=== PATIENT | female | born 1960 | race Asian ===

== ENCOUNTER 2018-06-19 20:01 | Emergency (ER) | payer OTHER, SELFPAY ==
[2018-06-19 20:07] VITALS: BP 140/86; PULSE 86; RESP 21; TEMP 36.6; O2SAT 100; BMI 23.6
--- NOTE | 2018-06-19 20:08 | ED.ABDPAIN ---
HPI - Abdominal Pain <Bing Castillo PA-C - Last Filed: 06/19/18 21:58> General Chief Complaint: Abdominal Pain Stated Complaint: STOMACH PAIN THROWING UP Time Seen by Provider: 06/19/18 20:08 Source: patient Mode of arrival: ambulatory Limitations: no limitations History of Present Illness HPI narrative: This 57 year old female comes in due to onset of abdominal pain with profuse vomiting about 4 hr ago. She states abdominal pain is little bit all over but most noticeable in the right upper quadrant and epigastric area currently. She states she has vomited about every 10 min, food at 1st, then watery material, last in the car on the way here. She denies any diarrhea or bowel habit change. She denies any urinary symptoms. She has not had fever, chills, or sweats. She denies any chest pain, dyspnea, pain or swelling in her extremities or other new symptoms on systems review. She has not had any dietary change, no recent travel or new exposures. Related Data Allergies Allergy/AdvReac Type Severity Reaction Status Date / Time SULFA Allergy Unknown Uncoded 12/16/17 12:28 Review of Systems <Bing Castillo PA-C - Last Filed: 06/19/18 21:58> Review of Systems All systems reviewed & are unremarkable except as noted in HPI and below Exam <Bing Castillo PA-C - Last Filed: 06/19/18 21:58> Narrative Exam Narrative: GENERAL APPEARANCE: Patient sitting comfortably, in no distress. HEENT: PERRL, EOMI, no scleral icterus, conjunctivae pink NECK: Supple LUNGS: Clear to auscultation bilaterally. HEART: Rate and rhythm regular, normal S1 and S2, no S3 or S4. ABDOMEN: Soft, nondistended, bowel sounds present x 4 quadrants, no masses palpable, no hepatosplenomegaly. Tender over the right upper quadrant with +Schwarz's sign which is difficult to reproduce. Tender over the epigastrium. More mild tenderness over the left upper quadrant and remainder of the abdomen. No suprapubic tenderness. No CVAT EXTREMITIES: No edema, no cyanosis DERMATOLOGIC: No jaundice or exanthem NEUROLOGIC: Alert and oriented with normal speech and coordination Initial Vital Signs Initial Vital Signs: Vital Signs Temperature 97.9 F 06/19/18 20:07 Pulse Rate 86 06/19/18 20:07 Respiratory Rate 21 06/19/18 20:07 Blood Pressure 140/86 06/19/18 20:07 Pulse Oximetry 100 06/19/18 20:07 <Lyndsay Nicholas DO - Last Filed: 06/20/18 00:45> Initial Vital Signs Initial Vital Signs: Vital Signs Temperature 97.9 F 06/19/18 20:07 Pulse Rate 86 06/19/18 20:07 Respiratory Rate 21 06/19/18 20:07 Blood Pressure 140/86 06/19/18 20:07 Pulse Oximetry 100 06/19/18 20:07 Course <Bing Castillo PA-C - Last Filed: 06/19/18 21:58> Additional Information: The patient has not had recurrent vomiting while in the department and reports feeling significantly improved after medications and fluids. No acute findings on ultrasound. She agreed to return if any acutely worsening symptoms again. Orders Ordered: ED Orders 06/19/18 20:16 Complete Blood Count AUTO DIFF Stat Comprehensive Metabolic Panel Stat Lipase Stat 06/19/18 20:18 US abdomen complete Stat Discontinued Medications Sodium Chloride (Normal Saline 0.9%) 1,000 mls @ 1,000 mls/hr IV BOLUS ONE Stop: 06/19/18 21:17 Last Infusion: 06/19/18 21:18 Dose: 0 mls/hr Admin: 06/19/18 20:24 Dose: 1,000 mls/hr Ketorolac Tromethamine (Toradol) 30 mg IV NOW ONE Stop: 06/19/18 21:27 Last Admin: 06/19/18 21:31 Dose: 30 mg Ondansetron HCl (Zofran) 4 mg IV NOW ONE Stop: 06/19/18 20:19 Last Admin: 06/19/18 20:24 Dose: 4 mg Ondansetron HCl (Zofran Odt Prepack) 1 bottle MISC SEEINSTR ONE Stop: 06/19/18 21:50 Last Admin: 06/19/18 21:52 Dose: 1 bottle Vital Signs - 8 hr 06/19/18 20:07 06/19/18 21:02 06/19/18 21:35 Temperature 97.9 F 97.5 F L Pulse Rate 86 74 67 Respiratory Rate 21 17 18 Blood Pressure 140/86 Blood Pressure [Right Arm] 109/67 115/74 Pulse Oximetry 100 99 97 06/19/18 21:48 Temperature Pulse Rate 72 Respiratory Rate 17 Blood Pressure Blood Pressure [Right Arm] 110/72 Pulse Oximetry 99 <Lyndsay Nicholas DO - Last Filed: 06/20/18 00:45> Orders Ordered: ED Orders 06/19/18 20:16 Complete Blood Count AUTO DIFF Stat Comprehensive Metabolic Panel Stat Lipase Stat 06/19/18 20:18 US abdomen complete Stat Discontinued Medications Sodium Chloride (Normal Saline 0.9%) 1,000 mls @ 1,000 mls/hr IV BOLUS ONE Stop: 06/19/18 21:17 Last Infusion: 06/19/18 21:18 Dose: 0 mls/hr Admin: 06/19/18 20:24 Dose: 1,000 mls/hr Ketorolac Tromethamine (Toradol) 30 mg IV NOW ONE Stop: 06/19/18 21:27 Last Admin: 06/19/18 21:31 Dose: 30 mg Ondansetron HCl (Zofran) 4 mg IV NOW ONE Stop: 06/19/18 20:19 Last Admin: 06/19/18 20:24 Dose: 4 mg Ondansetron HCl (Zofran Odt Prepack) 1 bottle MISC SEEINSTR ONE Stop: 06/19/18 21:50 Last Admin: 06/19/18 21:52 Dose: 1 bottle Vital Signs - 8 hr 06/19/18 20:07 06/19/18 21:02 06/19/18 21:35 Temperature 97.9 F 97.5 F L Pulse Rate 86 74 67 Respiratory Rate 21 17 18 Blood Pressure 140/86 Blood Pressure [Right Arm] 109/67 115/74 Pulse Oximetry 100 99 97 06/19/18 21:48 Temperature Pulse Rate 72 Respiratory Rate 17 Blood Pressure Blood Pressure [Right Arm] 110/72 Pulse Oximetry 99 MDM - Abdominal Pain <Bing Castillo PA-C - Last Filed: 06/19/18 21:58> Lab Data Attestation: I reviewed the patient's lab results. Result diagrams: 06/19/18 20:16 06/19/18 20:16 Lab Results 06/19/18 06/19/18 Range/Units 20:16 20:16 WBC 17.6 H (4.5-11.0) X10^3/uL RBC 4.86 (4.0-5.2) X10^6/uL Hgb 14.7 (12.0-16.0) g/dL Hct 43.5 (36-46) % MCV 89.5 (80-100) fL MCH 30.2 (26-34) PG MCHC 33.7 (30-36) % RDW 12.3 (11.6-14.8) % Plt Count 338 (150-400) X10^3/uL Neut % (Auto) 90.0 H (50-75) % Lymph % (Auto) 4.5 L (25-40) % Evans % (Auto) 5.0 (3-14) % Eos % (Auto) 0.3 L (2-4) % Baso % (Auto) 0.2 (0-2) % Neut # (Auto) 95883 H (5370-6849) /uL Sodium 144 (137-145) mmol/L Potassium 3.7 (3.4-5.1) mmol/L Chloride 101 (98-107) mmol/L Carbon Dioxide 30 (22-32) mmol/L BUN 14 (7-17) mg/dL Creatinine 0.70 (0.52-1.04) mg/dL Estimated GFR > 60.0 (>60) mL/min BUN/Creatinine Ratio 20.0 (6-22) Glucose 148 H (70-100) mg/dL Calcium 9.8 (8.4-10.2) mg/dL Total Bilirubin 0.8 (0.2-1.3) mg/dL AST 43 H (14-36) IU/L ALT 52 (9-52) IU/L Alkaline Phosphatase 75 (38-126) U/L Total Protein 8.2 (6.3-8.2) g/dL Albumin 5.0 (3.5-5.0) g/dL Globulin 3.2 (1.7-4.1) g/dL Albumin/Globulin Ratio 1.6 (1.0-2.8) Lipase 123 (23-300) U/L Imaging Data US - abdomen: Radiologist's impression: [address] [address] Ultrasound Report Signed Patient: America Bass [facility]#: [id number] : 2Acct:[id number] Age/Sex: 57 / FDate of Service: 06/19/18 Loc: ED Accession Number: [id number] Procedure: US abdomen complete Ordering Provider: Bing Castillo P.A-C PROCEDURE: US ABDOMEN COMPLETE INDICATIONS: RIGHT UPPER QUADRANT PAIN TECHNIQUE: Real-time scanning was performed of the abdominal and retroperitoneal organs, with image documentation. COMPARISON: None. FINDINGS: Liver: Liver is normal in size and homogeneous in echotexture. Gallbladder: Gallbladder is suboptimally visualized but appears grossly normal. No gallstones. No gallbladder wall thickening. No pericholecystic fluid. No sonographic Schwarz sign. Biliary ducts: Intrahepatic bile ducts are non-dilated. Extrahepatic bile duct caliber measures 6.4 mm. Normal is 6-7 mm or less in diameter, or 10 mm or less post-cholecystectomy. Pancreas: Visualized portions of the pancreas are sonographically normal. Spleen: Spleen is normal in size and homogeneous in echotexture. Kidneys: Kidneys are normal in size and echotexture. Right kidney measures 9.4 cm long; left kidney measures 9.9 cm long. No hydronephrosis or nephrolithiasis. No solid masses. Aorta: Visualized aorta is normal in caliber at less than 3 cm. Iliacs: Proximal common iliac arteries are normal in caliber at less than 2.5 cm. IVC: Intrahepatic inferior vena cava is patent. Miscellaneous: No free abdominal fluid. IMPRESSION: Suboptimal visualization of gallbladder. Gallbladder appears grossly normal. Dictated by: Lupe Cervantes MD, PhD on 06/19/2018 at 21:17 Approved by: Lupe Cervantes MD, PhD on 06/19/2018 at 21:18 <Lyndsay Nicholas, DO - Last Filed: 06/20/18 00:45> Lab Data Lab Results 06/19/18 06/19/18 Range/Units 20:16 20:16 WBC 17.6 H (4.5-11.0) X10^3/uL RBC 4.86 (4.0-5.2) X10^6/uL Hgb 14.7 (12.0-16.0) g/dL Hct 43.5 (36-46) % MCV 89.5 (80-100) fL MCH 30.2 (26-34) PG MCHC 33.7 (30-36) % RDW 12.3 (11.6-14.8) % Plt Count 338 (150-400) X10^3/uL Neut % (Auto) 90.0 H (50-75) % Lymph % (Auto) 4.5 L (25-40) % Evans % (Auto) 5.0 (3-14) % Eos % (Auto) 0.3 L (2-4) % Baso % (Auto) 0.2 (0-2) % Neut # (Auto) 34895 H (6499-2370) /uL Sodium 144 (137-145) mmol/L Potassium 3.7 (3.4-5.1) mmol/L Chloride 101 (98-107) mmol/L Carbon Dioxide 30 (22-32) mmol/L BUN 14 (7-17) mg/dL Creatinine 0.70 (0.52-1.04) mg/dL Estimated GFR > 60.0 (>60) mL/min BUN/Creatinine Ratio 20.0 (6-22) Glucose 148 H (70-100) mg/dL Calcium 9.8 (8.4-10.2) mg/dL Total Bilirubin 0.8 (0.2-1.3) mg/dL AST 43 H (14-36) IU/L ALT 52 (9-52) IU/L Alkaline Phosphatase 75 (38-126) U/L Total Protein 8.2 (6.3-8.2) g/dL Albumin 5.0 (3.5-5.0) g/dL Globulin 3.2 (1.7-4.1) g/dL Albumin/Globulin Ratio 1.6 (1.0-2.8) Lipase 123 (23-300) U/L Discharge Plan Departure Patient Disposition: Home Clinical Impression: Gastroenteritis, Abdominal pain Discharge Date/Time: 06/19/18 22:00 Interventions: ED Discharge Assessment Last Done: 06/19/18 21:59 Activity Restrictions/Additional Instructions: Please return as we talked about if you have any acutely worsening symptoms again such as more pain, recurrent vomiting, or new symptoms such as fever. Please sip clear fluids, and if you are feeling better tomorrow you can try small amounts of bland foods such as bananas, applesauce, a little bit of white rice, or white toast. Please continue to eat bland food in small amounts until you are feeling better, then you can gradually advance to your normal diet. Please be sure to follow up with her PCP if you are not continuing to feel better over the next couple of days Referrals: [facility] [Provider Group] <Lyndsay Nicholas, DO - Last Filed: 06/20/18 00:45> Cosign ED Attending Hipolito Attestation: I was immediately available in the department for consultation. Documentation has been reviewed. I agree with assessment and plan.
--- NOTE | 2018-06-19 20:18 | DI.US.S_ITS ---
PROCEDURE: US ABDOMEN COMPLETE INDICATIONS: RIGHT UPPER QUADRANT PAIN TECHNIQUE: Real-time scanning was performed of the abdominal and retroperitoneal organs, with image documentation. COMPARISON: None. FINDINGS: Liver: Liver is normal in size and homogeneous in echotexture. Gallbladder: Gallbladder is suboptimally visualized but appears grossly normal. No gallstones. No gallbladder wall thickening. No pericholecystic fluid. No sonographic Schwarz sign. Biliary ducts: Intrahepatic bile ducts are non-dilated. Extrahepatic bile duct caliber measures 6.4 mm. Normal is 6-7 mm or less in diameter, or 10 mm or less post-cholecystectomy. Pancreas: Visualized portions of the pancreas are sonographically normal. Spleen: Spleen is normal in size and homogeneous in echotexture. Kidneys: Kidneys are normal in size and echotexture. Right kidney measures 9.4 cm long; left kidney measures 9.9 cm long. No hydronephrosis or nephrolithiasis. No solid masses. Aorta: Visualized aorta is normal in caliber at less than 3 cm. Iliacs: Proximal common iliac arteries are normal in caliber at less than 2.5 cm. IVC: Intrahepatic inferior vena cava is patent. Miscellaneous: No free abdominal fluid. IMPRESSION: Suboptimal visualization of gallbladder. Gallbladder appears grossly normal. Dictated by: Lupe Cervantes MD, PhD on 06/19/2018 at 21:17 Approved by: Lupe Cervantes MD, PhD on 06/19/2018 at 21:18
--- NOTE | 2018-06-19 20:23 | ED_ITS ---
HPI - Abdominal Pain <Bing Castillo PA-C - Last Filed: 06/19/18 21:58> General Chief Complaint: Abdominal Pain Stated Complaint: STOMACH PAIN THROWING UP Time Seen by Provider: 06/19/18 20:08 Source: patient Mode of arrival: ambulatory Limitations: no limitations History of Present Illness HPI narrative: This 57 year old female comes in due to onset of abdominal pain with profuse vomiting about 4 hr ago. She states abdominal pain is little bit all over but most noticeable in the right upper quadrant and epigastric area currently. She states she has vomited about every 10 min, food at 1st, then watery material, last in the car on the way here. She denies any diarrhea or bowel habit change. She denies any urinary symptoms. She has not had fever, chills, or sweats. She denies any chest pain, dyspnea, pain or swelling in her extremities or other new symptoms on systems review. She has not had any dietary change, no recent travel or new exposures. Related Data Allergies Allergy/AdvReac Type Severity Reaction Status Date / Time SULFA Allergy Unknown Uncoded 12/16/17 12:28 Review of Systems <Bing Castillo PA-C - Last Filed: 06/19/18 21:58> Review of Systems All systems reviewed & are unremarkable except as noted in HPI and below Exam <Bing Castillo PA-C - Last Filed: 06/19/18 21:58> Narrative Exam Narrative: GENERAL APPEARANCE: Patient sitting comfortably, in no distress. HEENT: PERRL, EOMI, no scleral icterus, conjunctivae pink NECK: Supple LUNGS: Clear to auscultation bilaterally. HEART: Rate and rhythm regular, normal S1 and S2, no S3 or S4. ABDOMEN: Soft, nondistended, bowel sounds present x 4 quadrants, no masses palpable, no hepatosplenomegaly. Tender over the right upper quadrant with + Schwarz's sign which is difficult to reproduce. Tender over the epigastrium. More mild tenderness over the left upper quadrant and remainder of the abdomen. No suprapubic tenderness. No CVAT EXTREMITIES: No edema, no cyanosis DERMATOLOGIC: No jaundice or exanthem NEUROLOGIC: Alert and oriented with normal speech and coordination Initial Vital Signs Initial Vital Signs: Vital Signs Temperature 97.9 F 06/19/18 20:07 Pulse Rate 86 06/19/18 20:07 Respiratory Rate 21 06/19/18 20:07 Blood Pressure 140/86 06/19/18 20:07 Pulse Oximetry 100 06/19/18 20:07 <Lyndsay Nicholas DO - Last Filed: 06/20/18 00:45> Initial Vital Signs Initial Vital Signs: Vital Signs Temperature 97.9 F 06/19/18 20:07 Pulse Rate 86 06/19/18 20:07 Respiratory Rate 21 06/19/18 20:07 Blood Pressure 140/86 06/19/18 20:07 Pulse Oximetry 100 06/19/18 20:07 Course <Bing Castillo PA-C - Last Filed: 06/19/18 21:58> Additional Information: The patient has not had recurrent vomiting while in the department and reports feeling significantly improved after medications and fluids. No acute findings on ultrasound. She agreed to return if any acutely worsening symptoms again. Orders Ordered: ED Orders 06/19/18 20:16 Complete Blood Count AUTO DIFF Stat Comprehensive Metabolic Panel Stat Lipase Stat 06/19/18 20:18 US abdomen complete Stat Discontinued Medications Sodium Chloride (Normal Saline 0.9%) 1,000 mls @ 1,000 mls/hr IV BOLUS ONE Stop: 06/19/18 21:17 Last Infusion: 06/19/18 21:18 Dose: 0 mls/hr Admin: 06/19/18 20:24 Dose: 1,000 mls/hr Ketorolac Tromethamine (Toradol) 30 mg IV NOW ONE Stop: 06/19/18 21:27 Last Admin: 06/19/18 21:31 Dose: 30 mg Ondansetron HCl (Zofran) 4 mg IV NOW ONE Stop: 06/19/18 20:19 Last Admin: 06/19/18 20:24 Dose: 4 mg Ondansetron HCl (Zofran Odt Prepack) 1 bottle MISC SEEINSTR ONE Stop: 06/19/18 21:50 Last Admin: 06/19/18 21:52 Dose: 1 bottle Vital Signs - 8 hr 06/19/18 20:07 06/19/18 21:02 06/19/18 21:35 Temperature 97.9 F 97.5 F L Pulse Rate 86 74 67 Respiratory Rate 21 17 18 Blood Pressure 140/86 Blood Pressure [Right Arm] 109/67 115/74 Pulse Oximetry 100 99 97 06/19/18 21:48 Temperature Pulse Rate 72 Respiratory Rate 17 Blood Pressure Blood Pressure [Right Arm] 110/72 Pulse Oximetry 99 <Lyndsay Nicholas DO - Last Filed: 06/20/18 00:45> Orders Ordered: ED Orders 06/19/18 20:16 Complete Blood Count AUTO DIFF Stat Comprehensive Metabolic Panel Stat Lipase Stat 06/19/18 20:18 US abdomen complete Stat Discontinued Medications Sodium Chloride (Normal Saline 0.9%) 1,000 mls @ 1,000 mls/hr IV BOLUS ONE Stop: 06/19/18 21:17 Last Infusion: 06/19/18 21:18 Dose: 0 mls/hr Admin: 06/19/18 20:24 Dose: 1,000 mls/hr Ketorolac Tromethamine (Toradol) 30 mg IV NOW ONE Stop: 06/19/18 21:27 Last Admin: 06/19/18 21:31 Dose: 30 mg Ondansetron HCl (Zofran) 4 mg IV NOW ONE Stop: 06/19/18 20:19 Last Admin: 06/19/18 20:24 Dose: 4 mg Ondansetron HCl (Zofran Odt Prepack) 1 bottle MISC SEEINSTR ONE Stop: 06/19/18 21:50 Last Admin: 06/19/18 21:52 Dose: 1 bottle Vital Signs - 8 hr 06/19/18 20:07 06/19/18 21:02 06/19/18 21:35 Temperature 97.9 F 97.5 F L Pulse Rate 86 74 67 Respiratory Rate 21 17 18 Blood Pressure 140/86 Blood Pressure [Right Arm] 109/67 115/74 Pulse Oximetry 100 99 97 06/19/18 21:48 Temperature Pulse Rate 72 Respiratory Rate 17 Blood Pressure Blood Pressure [Right Arm] 110/72 Pulse Oximetry 99 MDM - Abdominal Pain <Bing Castillo PA-C - Last Filed: 06/19/18 21:58> Lab Data Attestation: I reviewed the patient's lab results. Result diagrams: 06/19/18 20:16 06/19/18 20:16 Lab Results 06/19/18 06/19/18 Range/Units 20:16 20:16 WBC 17.6 H (4.5-11.0) X10^3/uL RBC 4.86 (4.0-5.2) X10^6/uL Hgb 14.7 (12.0-16.0) g/dL Hct 43.5 (36-46) % MCV 89.5 (80-100) fL MCH 30.2 (26-34) PG MCHC 33.7 (30-36) % RDW 12.3 (11.6-14.8) % Plt Count 338 (150-400) X10^3/uL Neut % (Auto) 90.0 H (50-75) % Lymph % (Auto) 4.5 L (25-40) % [place] % (Auto) 5.0 (3-14) % Eos % (Auto) 0.3 L (2-4) % Baso % (Auto) 0.2 (0-2) % Neut # (Auto) 22601 H (3035-7579) /uL Sodium 144 (137-145) mmol/L Potassium 3.7 (3.4-5.1) mmol/L Chloride 101 (98-107) mmol/L Carbon Dioxide 30 (22-32) mmol/L BUN 14 (7-17) mg/dL Creatinine 0.70 (0.52-1.04) mg/dL Estimated GFR > 60.0 (>60) mL/min BUN/Creatinine Ratio 20.0 (6-22) Glucose 148 H (70-100) mg/dL Calcium 9.8 (8.4-10.2) mg/dL Total Bilirubin 0.8 (0.2-1.3) mg/dL AST 43 H (14-36) IU/L ALT 52 (9-52) IU/L Alkaline Phosphatase 75 (38-126) U/L Total Protein 8.2 (6.3-8.2) g/dL Albumin 5.0 (3.5-5.0) g/dL Globulin 3.2 (1.7-4.1) g/dL Albumin/Globulin Ratio 1.6 (1.0-2.8) Lipase 123 (23-300) U/L Imaging Data US - abdomen: Radiologist's impression: [address] [address] Ultrasound Report Signed Patient: America Bass [facility]#: [id number] : 2Acct:[id number] Age/Sex: 57 / FDate of Service: 06/19/18 Loc: ED Accession Number: [id number] Procedure: US abdomen complete Ordering Provider: Bing Castillo P.A-C PROCEDURE: US ABDOMEN COMPLETE INDICATIONS: RIGHT UPPER QUADRANT PAIN TECHNIQUE: Real-time scanning was performed of the abdominal and retroperitoneal organs, with image documentation. COMPARISON: None. FINDINGS: Liver: Liver is normal in size and homogeneous in echotexture. Gallbladder: Gallbladder is suboptimally visualized but appears grossly normal. No gallstones. No gallbladder wall thickening. No pericholecystic fluid. No sonographic Schwarz sign. Biliary ducts: Intrahepatic bile ducts are non-dilated. Extrahepatic bile duct caliber measures 6.4 mm. Normal is 6-7 mm or less in diameter, or 10 mm or less post-cholecystectomy. Pancreas: Visualized portions of the pancreas are sonographically normal. Spleen: Spleen is normal in size and homogeneous in echotexture. Kidneys: Kidneys are normal in size and echotexture. Right kidney measures 9.4 cm long; left kidney measures 9.9 cm long. No hydronephrosis or nephrolithiasis. No solid masses. Aorta: Visualized aorta is normal in caliber at less than 3 cm. Iliacs: Proximal common iliac arteries are normal in caliber at less than 2.5 cm. IVC: Intrahepatic inferior vena cava is patent. Miscellaneous: No free abdominal fluid. IMPRESSION: Suboptimal visualization of gallbladder. Gallbladder appears grossly normal. Dictated by: Lupe Cervantes MD, PhD on 06/19/2018 at 21:17 Approved by: Lupe Cervantes MD, PhD on 06/19/2018 at 21:18 <Lyndsay Nicholas, DO - Last Filed: 06/20/18 00:45> Lab Data Lab Results 06/19/18 06/19/18 Range/Units 20:16 20:16 WBC 17.6 H (4.5-11.0) X10^3/uL RBC 4.86 (4.0-5.2) X10^6/uL Hgb 14.7 (12.0-16.0) g/dL Hct 43.5 (36-46) % MCV 89.5 (80-100) fL MCH 30.2 (26-34) PG MCHC 33.7 (30-36) % RDW 12.3 (11.6-14.8) % Plt Count 338 (150-400) X10^3/uL Neut % (Auto) 90.0 H (50-75) % Lymph % (Auto) 4.5 L (25-40) % [place] % (Auto) 5.0 (3-14) % Eos % (Auto) 0.3 L (2-4) % Baso % (Auto) 0.2 (0-2) % Neut # (Auto) 97538 H (7124-5477) /uL Sodium 144 (137-145) mmol/L Potassium 3.7 (3.4-5.1) mmol/L Chloride 101 (98-107) mmol/L Carbon Dioxide 30 (22-32) mmol/L BUN 14 (7-17) mg/dL Creatinine 0.70 (0.52-1.04) mg/dL Estimated GFR > 60.0 (>60) mL/min BUN/Creatinine Ratio 20.0 (6-22) Glucose 148 H (70-100) mg/dL Calcium 9.8 (8.4-10.2) mg/dL Total Bilirubin 0.8 (0.2-1.3) mg/dL AST 43 H (14-36) IU/L ALT 52 (9-52) IU/L Alkaline Phosphatase 75 (38-126) U/L Total Protein 8.2 (6.3-8.2) g/dL Albumin 5.0 (3.5-5.0) g/dL Globulin 3.2 (1.7-4.1) g/dL Albumin/Globulin Ratio 1.6 (1.0-2.8) Lipase 123 (23-300) U/L Discharge Plan Departure Patient Disposition: Home Clinical Impression: Gastroenteritis, Abdominal pain Discharge Date/Time: 06/19/18 22:00 Interventions: ED Discharge Assessment Last Done: 06/19/18 21:59 Activity Restrictions/Additional Instructions: Please return as we talked about if you have any acutely worsening symptoms again such as more pain, recurrent vomiting, or new symptoms such as fever. Please sip clear fluids, and if you are feeling better tomorrow you can try small amounts of bland foods such as bananas, applesauce, a little bit of white rice, or white toast. Please continue to eat bland food in small amounts until you are feeling better, then you can gradually advance to your normal diet. Please be sure to follow up with her PCP if you are not continuing to feel better over the next couple of days Referrals: [facility] [Provider Group] <Lyndsay Nicholas, DO - Last Filed: 06/20/18 00:45> Cosign ED Attending Hipolito Attestation: I was immediately available in the department for consultation. Documentation has been reviewed. I agree with assessment and plan.
[2018-06-19] MEDS: SODIUM CHLORIDE 0.9% 1,000 ML 1000 ML IV (20:24)
[2018-06-19] MEDS: ONDANSETRON 4 MG/2 ML INJ IV (20:24)
[2018-06-19 20:28] LABS: Add Manual Diff / Slide Review NO; Basophils Percent Auto 0.2 % (0-2); Eosinophils Percent Auto 0.3 % (2-4); Hematocrit 43.5 % (36-46); Hemoglobin 14.7 g/dL (12.0-16.0); Lymphocytes Percent Auto 4.5 % (25-40); Mean Corpuscular HGB Conc 33.7 % (30-36); Mean Corpuscular Hemoglobin 30.2 PG (26-34); Mean Corpuscular Volume 89.5 fL (80-100); Neutrophils Absolute Auto 15800 /uL (3000-5900); Platelet Count 338 X10^3/uL (150-400); Red Blood Cell Count 4.86 X10^6/uL (4.0-5.2); Red Cell Distribution Width 12.3 % (11.6-14.8); White Blood Cell Count 17.6 X10^3/uL (4.5-11.0)
[2018-06-19 20:34] LABS: Alanine Aminotransferase 52 IU/L (9-52); Albumin Globulin Ratio 1.6 (1.0-2.8); Alkaline Phosphatase 75 U/L (38-126); Aspartate Aminotransferase 43 IU/L (14-36); Bilirubin Total 0.8 mg/dL (0.2-1.3); Blood Urea Nitrogen 14 mg/dL (7-17); Calcium 9.8 mg/dL (8.4-10.2); Carbon Dioxide 30 mmol/L (22-32); Chloride 101 mmol/L (98-107); Estimated Glomerular Filt Rate > 60.0 mL/min (>60); Globulin 3.2 g/dL (1.7-4.1); Glucose 148 mg/dL (70-100); HEMOLYSIS < 15 (0-50); Lipase 123 U/L (23-300); Potassium 3.7 mmol/L (3.4-5.1); Sodium 144 mmol/L (137-145); Total Protein 8.2 g/dL (6.3-8.2)
[2018-06-19 21:02] VITALS: BP 109/67; PULSE 74; RESP 17; O2SAT 99
[2018-06-19] MEDS: KETOROLAC 60 MG/2 ML VIAL 30 MG IV (21:31)
[2018-06-19 21:35] VITALS: BP 115/74; PULSE 67; RESP 18; TEMP 36.4; O2SAT 97
[2018-06-19 21:48] VITALS: BP 110/72; PULSE 72; RESP 17; O2SAT 99
[2018-06-19] MEDS: ONDANSETRON 4 MG ODT PREPACK 1 BOTTLE MISC (21:52)
== END 2018-06-19 22:00 | disposition home or self-care (01) ==
PROVIDERS: Emergency Provider Internal Medicine
DX: K52.9 Noninfective gastroenteritis and colitis, unspecified (principal); R10.9 Unspecified abdominal pain
CPT/HCPCS: 36591; 76700; 80053; 83690; 85025; 96361; 96374; 96375; 99283; 99284; J1885; J2405

== ENCOUNTER 2018-06-28 10:28 | Day surgery (SDC) | payer OTHER, SELFPAY ==
[2018-06-25 12:54] VITALS: BMI 23.6
--- NOTE | 2018-06-28 | PATH_ITS ---
[facility] Accession Number: [id number] . 01 Material submitted: . RIGHT FALLOPIAN TUBE AND OVARY . 02 Diagnosis: Right Fallopian Tube and Ovary: Serous cystadenoma, ovary, with associated multiple serous cysts, all negative for atypia. Focal salpingitis isthmica nodosum, fallopian tube. MRV/06/30/2018 . 02 Electronically signed: . Jerry Mattson MD, Pathologist NPI- [id number] . 01 Gross description: . Received in formalin, labeled right fallopian tube + ovary, is an ovary (3.8 x 2.4 x 1.8 cm) with an apparent attached fallopian tube segment (length-2.3 cm, diameter-0.3 cm). The fimbria cannot be identified. The ovary has crisostomo-white smooth and shiny flat serosa and hwang-white solid cystic parenchyma with corpus albicans identified. The cavities (0.1 cm-3.2 cm) contain clear colorless fluid. The linings are smooth and flat with no excrescences identified. The fallopian tube has hwang-crisostomo smooth and shiny serosa and a hwang unremarkable lumen. Section code: (A1, A2) ovary, appeals representative serial sections; (A3, A4) ovary and fallopian tube junction, perpendicularly sectioned; (A5, A6) apparent fallopian tube, appeals representative serial sections. Note: Per the requisition, this is a split sample with ovarian cyst fluid sent to cytology for analysis. ([id number]) /[facility] . 02 Pathologist provided ICD-10: N83.201 . 02 CPT . 113543 Performed at: 01 [facility] [address] [place] [address] [address], [place], [place] [id number] MD Babar Whitley MD Phone: [phone] Performed at: 02 [facility] [id number] [place] [id number] MD Garth Sorenson MD Phone: [phone]
[2018-06-28 10:46] VITALS: BP 114/73; PULSE 63; RESP 16; TEMP 36.6; O2SAT 99; BMI 23.6
--- NOTE | 2018-06-28 11:30 | PM.PREOP ---
Pre-operative Note Interval Note Pre-op Check: Yes History & Physical Reviewed by Physician Changes: No
[2018-06-28] MEDS: BUPIVACAINE 0.25% (PF) VIAL 30 ML INJ (12:13)
--- NOTE | 2018-06-28 12:22 | SUR.OPER ---
Lithotomy on padded OR bed, head on pillow, arms secured on padded arm boards at <90 degrees abduction. Legs secured in padded yellow fins stirrups.
--- NOTE | 2018-06-28 13:00 | PATH_ITS ---
Note [facility] Accession Number: [id number] TESTS RESULT FLAG UNITS REF RANGE LAB Clinician Provided Cytology Information No. of containers..01 ThinPrep Vial 01 R OVARIAN CYST FLUID DIAGNOSIS: R OVARIAN CYST FLUID INCONCLUSIVE. ATYPIA OF UNDETERMINED SIGNIFICANCE. CLUSTERS OF EPITHELIAL CELLS PRESENT OF UNCERTAIN SIGNIFICANCE. PLEASE CORRELATE WITH IMAGING AND/OR HISTOLOGIC FINDINGS. COMMENT: This case was reviewed per the laboratory QC program. The diagnosis has been changed from benign to atypical. Message left with Dr. Alvarado's office on 07-02-18 at approximately 2:25 p.m. Pathologist ICD10: 02 R89.6 01 Bandage Maker 02 Nita Stein MD, Pathologist NPI- [id number] Donnell Suggs, Charge Loader ([facility]) 01 15 CC, PINK, CLEAR /LCS FLAG LEGEND: L-Low Normal,H-High Normal,LL-Alert Low,HH-Alert High <-Panic Low,>-Panic High,A-Abnormal,AA-Critical Abnormal Performed at: [facility] [address] [id number] Nita Stein MD, 02 [facility] [address] [place] [id number] Eileen Sutton MD, 03 =Z [facility] [address] [id number] Babar Whitley MD, Specimen Comment: A duplicate report has been generated due to demographic updates. Performed at: [address] [id number] MD Nita Stein MD Phone: [phone]
[2018-06-28] MEDS: LACTATED RINGERS 1,000 ML 42 ML IV (13:29)
[2018-06-28 13:30] VITALS: BP 112/56; PULSE 69; RESP 16; TEMP 37.2; O2SAT 99
[2018-06-28 13:35] VITALS: BP 113/75; PULSE 74; RESP 16; O2SAT 100
[2018-06-28 13:40] VITALS: BP 110/70; PULSE 76; RESP 16; O2SAT 97
[2018-06-28 13:45] VITALS: BP 105/70; PULSE 67; RESP 13; TEMP 36.6; O2SAT 99
--- NOTE | 2018-06-28 15:00 | PM.GYNOP.1 ---
Operative Date/Time/Diagnoses Date of procedure: 06/28/18 Time of procedure: 12:15 Pre-op diagnosis: Right ovarian cyst Post-op diagnosis: other (Right ovarian cyst, omental adhesions, uterine fibroids) Procedure: Procedures Operation Date: 06/28/18 12:15 Actual Procedures Side Surgeon p Laparoscopic Right Salpingo-oophorectomy and lysis of adhesions Right Ladan Alvarado MD Indications: The patient is a 57-year-old postmenopausal 4 para 1 abortus 3 female here for laparoscopy with right salpingo-oophorectomy. The surgery is for removal of a complex right ovarian cyst. She has had intermittent right lower quadrant pain, including an episode of severe pain and nausea approximately 1-2 weeks ago, for which she was seen in the emergency room. She has a history of approximately 3 years of right lower quadrant and right flank discomfort. Pain seems worse when bearing down or heavy lifting. Workup noted a cystic mass at the right adnexa on a recent CT scan, though previous studies were normal. A pelvic ultrasound was notable for a multi-cystic right ovarian cyst. CA-125 level was checked and within normal range. She has been menopausal for 5-6 years and has had no abnormal bleeding. She is also status post a left salpingo-oophorectomy for treatment of an ectopic in 1985 and a delivery in October of 1989. The risks, benefits, limitations, alternatives, and expectations of surgery were discussed, and the consent was reviewed and signed prior to the date of surgery. Surgeon: Ladan Alvarado Assistant Business Manager: Bill Balderas Anesthesia Type: General and Local (0.25% Marcaine) Operative Notes Findings: Exam under anesthesia: The uterus was approximately 6 weeks in size and mid plane. No adnexal masses were palpable on bimanual exam. Operative findings: The uterus was approximately 6 weeks in size with 3 subserosal fibroids noted at the fundus, measuring approximately 1.5 cm each. These were at the fundus, the anterior fundus, and the right cornual region. The right ovary was enlarged with a complex, approximately 5 cm, cyst. Upon rupture of the cyst at the skin level, clear straw-colored fluid was noted. The remainder of the cyst and ovary was not examined and was sent for pathology. There was a complicated omental adhesion along the midline, posterior to the patient's vertical laparotomy incision. This omental adhesion tracked inferiorly and slightly to the right and was adhered to the right fallopian tube. The omental adhesion to the tube was excised in order to complete the right salpingo-oophorectomy,. However, the remainder of the omental adhesion was left in situ given the extent of the adhesion. The liver edge and the right flank and right lower quadrant otherwise appeared normal. The ureter on the patient's right was visualized and noted to peristalse well below the dissection site for the right salpingo-oophorectomy. Closure Type: primary Specimen(s): right tube & ovary Applied: catheter (Removed at the end of the case) Estimated blood loss (mL): 12 Blood products transfused: none Procedure in detail: The patient was taken to the operating room, where general endotracheal anesthesia was administered without complications. The patient was placed into the low dorsal lithotomy position with her lower extremities in Yellofin stirrups. Exam under anesthesia was then performed with the findings noted above. Perineum, vagina, and abdomen were then prepped and draped in a sterile fashion. A Arteaga catheter was then placed for the duration of the surgery. Procedure time-out was then performed. Attention was first turned to the perineum for placement of the uterine manipulator. A sterile bivalve speculum was inserted into the vagina, then the anterior lip of the cervix was grasped with a single-tooth tenaculum. The cervix was then serially dilated using Tree dilators until a ZUMI uterine manipulator could be advanced. The balloon was inflated, then the tenaculum and speculum removed from the vagina. Local anesthetic was then injected infraumbilically using 0.25% Marcaine. A vertical skin incision was then made with a scalpel below the umbilicus measuring approximately 7 mm in length. The abdominal wall was then grasped and tented up while a Veress needle was inserted through the incision. Saline drop test was suggestive of intraperitoneal placement. Carbon dioxide gas insufflation was then performed with appropriate opening pressures noted. After instilling approximately 2 L of carbon dioxide, a 5 mm 0 degree laparoscope within a 5 mm trocar was inserted through the anterior layers of the abdominal wall using Optiview technique. The abdomen and pelvis were visualized with the findings as noted above. The patient was placed into Trendelenburg position for better visualization. A second trocar was inserted at the patient's right lower quadrant. This was done by first instilling local anesthetic, then incising the skin and inserting a 5 mm trocar under direct visualization using the laparoscopic. A 3rd trocar was then placed in the left lower quadrant in a similar fashion. An attempt was made to dissect the omental adhesion using the PlasmaKinetic; however, given the friability of the tissue and the denseness of the adhesion, the majority was left in situ. Any residual bleeding was controlled with Bovie cautery. The decision was made to create a 4th incision suprapubically and performed the dissection from the patient's left side, which had a view of the right adnexa and right ovary. Local anesthetic was injected approximately 2 fingerbreadths above the pubic bone in the midline, then a 5 mm trocar was placed under direct visualization with the laparoscope. The omental adhesion over the right fallopian tube was cross clamped, cauterized, and cut using the PlasmaKinetic. The ovary and fallopian tube were then grasped using an atraumatic grasper through the suprapubic port. While applying traction anteriorly the right infundibulopelvic vessels were cross clamped, cauterized, and cut using the PlasmaKinetic. The utero-ovarian ligament and right fallopian tube were then cross clamped, cauterized, and cut. The underlying peritoneum between this dissection was also cross clamped cauterized and cut freeing the ovary and fallopian tube from the peritoneum. The 5 mm trocar at the suprapubic area was then changed to a 10 mm port. A large Endo-Catch bag was then inserted through the suprapubic port. The ovary and cyst were placed into the Endo-Catch bag and brought up to the level of the skin. Here, intentional rupture of the cyst was performed with clear straw-colored fluid noted. This was aspirated and sent with the specimen. The cyst could then be removed from the abdomen within the Endo-Catch bag. The 10 mm port was then replaced. Visualization of the pelvis and right adnexa noted hemostasis. The omentum was visualized on all sides, and there was no bleeding noted at any of the dissection areas. The pelvis was irrigated and suctioned. The carbon dioxide gas was then allowed to escape and the trocars removed from the abdomen. The fascia of the suprapubic trocar site was closed with 0 Vicryl in a [id number] suture. The trocar sites were then closed with 4-0 Monocryl in a subcuticular fashion. Exofin skin glue was then applied. Attention was then returned to the patient's perineum, where the uterine manipulator balloon was deflated and the uterine manipulator removed. The tenaculum sites were hemostatic after application of gentle pressure using a sponge stick. The speculum was then removed from the vagina. At this point the procedure was deemed complete. Sponge, lap, and needle count were correct x3. The patient was subsequently awakened, extubated, and transferred to the PACU in stable condition. Complications: none Post-operative Condition: stable Disposition: same day surgery Plan for aftercare: See handout for discharge precautions and limitations.
== END 2018-06-28 14:30 | disposition home or self-care (01) ==
PROVIDERS: Visit Provider Obstetrics & Gynecology
PROC: (CPT 58661; principal; 2018-06-28 12:15)
DX: N83.201 Unspecified ovarian cyst, right side (principal); D25.2 Subserosal leiomyoma of uterus; N73.6 Female pelvic peritoneal adhesions (postinfective)
CPT/HCPCS: 58661; 88307; J1100; J2250; J2405; J2704; J3010

== ENCOUNTER 2021-02-24 19:33 | Emergency (ER) | payer OTHER, SELFPAY ==
[2021-02-24] VITALS (10 sets, daily range): BP systolic 94–111; BP diastolic 60–73; PULSE 71–95; RESP 15–25; TEMP 36.3; O2SAT 94–98; BMI 24.5
[2021-02-24 20:06] LABS: Add Manual Diff / Slide Review NO; Basophils Absolute Auto 100 /uL (0-100); Basophils Percent Auto 0.5 % (0-2); Eosinophils Absolute Auto 100 /uL (0-450); Eosinophils Percent Auto 1.1 % (2-4); Hematocrit 43.3 % (36-46); Hemoglobin 14.6 g/dL (12.0-16.0); Lymphocytes Absolute Auto 800 /uL (1100-4500); Mean Corpuscular HGB Conc 33.8 % (30-36); Mean Corpuscular Hemoglobin 31.3 PG (26-34); Mean Corpuscular Volume 92.5 fL (80-100); Monocytes Absolute Auto 900 /uL (0-900); Monocytes Percent Auto 6.9 % (3-14); Neutrophils Absolute Auto 11100 /uL (1500-7000); Neutrophils Percent Auto 85.5 % (50-75); Platelet Count 317 X10^3/uL (150-400); Red Blood Cell Count 4.68 X10^6/uL (4.0-5.2); Red Cell Distribution Width 12.9 % (11.6-14.8)
[2021-02-24] MEDS: SODIUM CHLORIDE 0.9% 1,000 ML 1000 ML IV (20:08)
[2021-02-24] MEDS: ONDANSETRON 4 MG/2 ML INJ IV (20:09)
[2021-02-24] MEDS: HYDROMORPHONE 0.5 MG INJ IV (20:09)
[2021-02-24 20:12] LABS: Alanine Aminotransferase 22 IU/L (<35); Albumin 4.8 g/dL (3.5-5.0); Albumin Globulin Ratio 1.4 (1.0-2.8); Alkaline Phosphatase 83 U/L (38-126); Aspartate Aminotransferase 27 IU/L (14-36); BUN Creatinine Ratio 17.7 (6-22); Bilirubin Total 0.6 mg/dL (0.2-1.3); Blood Urea Nitrogen 14 mg/dL (7-17); Carbon Dioxide 31 mmol/L (22-32); Chloride 101 mmol/L (98-107); Estimated Glomerular Filt Rate > 60.0 mL/min (>60); Globulin 3.4 g/dL (1.7-4.1); Glucose 141 mg/dL (70-100); HEMOLYSIS < 15 (0-50); Lipase 121 U/L (23-300); Potassium 3.8 mmol/L (3.4-5.1); Sodium 140 mmol/L (137-145); Total Protein 8.2 g/dL (6.3-8.2)
--- NOTE | 2021-02-24 20:59 | ED.ABDPAIN ---
HPI - Abdominal Pain General Chief Complaint: Abdominal Pain Stated Complaint: Abd Pain Time Seen by Provider: 02/24/21 20:22 Source: patient Mode of arrival: Ambulatory Limitations: no limitations History of Present Illness HPI narrative: Patient is a 60-year-old male with history of breast cancer and an ectopic presenting today with abdominal pain nausea. She said it started about 2:00 p.m. this afternoon unable to stop vomiting with severe pain. She had a bowel movement today that was normal. She denies any diarrhea. She denies fever chills or shortness of breath. No painful frequent urination. No one else is sick at home. In the emergency department and is now overall feeling better. MD complaint: abdominal pain Onset (ago): hour(s) Related Data Home Medications Medication Instructions Recorded Confirmed amlodipine 5 mg PO DAILY 06/25/18 06/28/18 atorvastatin 10 mg PO DAILY 06/25/18 06/28/18 lisinopril 40 mg PO DAILY 06/25/18 06/28/18 Previous Rx's Medication Instructions Recorded hydrocodone-acetaminophen 1 tab PO Q6H PRN #10 tab 02/24/21 ondansetron 4 mg PO Q8H PRN #10 tab 02/24/21 Allergies Allergy/AdvReac Type Severity Reaction Status Date / Time hydrochlorothiazide Allergy Rash Verified 02/24/21 19:39 SULFA Allergy Unknown Urticaria Uncoded 02/24/21 19:39 Review of Systems Review of Systems Narrative: GENERAL: Denies chills, fatigue, malaise, fever, sweats, travel HEENT: Denies sinus pain, ear pain, sore throat, difficulty swallowing, neck pain RESPIRATORY: Denies dyspnea, cough, wheezing, hemoptysis, sputum. CARDIOVASCULAR: Denies chest pain, palpitations, orthopnea, edema GASTROINTESTINAL: See HPI : Denies dysuria, frequency, incontinence, hematuria, urinary retention, flank pain. MUSCULOSKELETAL: Denies weakness, joint pain, or bony pain SKIN: No rash, no erythema, no pruritus NEUROLOGIC: Denies weakness, dizziness, headache, numbness, change in speech, confusion PSYCHIATRIC: No concerning psychosocial issues. 12 point review of systems is negative except for those stated above and HPI Patient History Medical History Breast cancer Eczema Fibrocystic breast HTN (hypertension) Hx of ectopic Hyperlipidemia Ovarian cyst Pelvic pain Right flank pain Surgical History History of breast surgery History of delivery Social History household members: spouse Smoking Status: Never smoker alcohol intake: current Smoking Status: Never smoker alcohol intake frequency: 0-2 drinks per day Substance Use Type: does not use Exam Initial Vital Signs Initial Vital Signs: Vital Signs Temperature 97.4 F L 02/24/21 19:36 Pulse Rate 95 H 02/24/21 19:36 Respiratory Rate 18 02/24/21 19:36 Blood Pressure 106/73 02/24/21 19:36 Pulse Oximetry 98 02/24/21 19:36 GENERAL: Alert 60-year-old female and in no acute distress. HEENT: Head atraumatic,EOMI, pupils reactive, face symmetric, moist mucous membranes CARDIOVASCULAR: Regular rate and rhythm without murmurs, rubs or gallops. RESPIRATORY: Breath sounds equal bilaterally, no wheezes rales or rhonchi. ABDOMEN: Soft, scar noted from umbilical to pubic bone no distension no localization of pain EXTREMITIES: Normal range of motion, no clubbing or edema. Neurovascularly intact NEUROLOGICAL: Alert and oriented x4.Normal gait and speech. SKIN: Warm, dry, no laceration, no petechiae, no rashes or lesions. Course Orders Ordered: ED Orders 02/24/21 19:35 Complete Blood Count AUTO DIFF Stat Comprehensive Metabolic Panel Stat Lipase Stat 02/24/21 19:42 EKG-12 Lead Stat 02/24/21 19:55 Lactate (Lactic Acid) Stat 02/24/21 21:02 CT abdomen pelvis w con Stat Discontinued Medications Hydrocodone Bitart/Acetaminophen (Hydrocodone/Acet 5/325 Prepack) 1 bottle MISC SEEINSTR ONE Stop: 02/24/21 23:24 Last Admin: 02/24/21 23:35 Dose: 1 bottle Documented by: JCARLOS Hydromorphone HCl (Hydromorphone 0.5 Mg Inj) 0.5 mg IV NOW ONE Stop: 02/24/21 20:05 Last Admin: 02/24/21 20:09 Dose: 0.5 mg Documented by: HEMA Sodium Chloride (Normal Saline 0.9%) 1,000 mls @ 1,000 mls/hr IV BOLUS ONE Stop: 02/24/21 21:02 Last Infusion: 02/24/21 21:12 Dose: 0 mls/hr Documented by: Admin: 02/24/21 20:08 Dose: 1,000 mls/hr Documented by: HEMA Ondansetron HCl (Ondansetron 4 Mg/2 Ml Inj) 4 mg IV NOW ONE Stop: 02/24/21 20:05 Last Admin: 02/24/21 20:09 Dose: 4 mg Documented by: HEMA Vital Signs Vital signs: Vital Signs - 8 hr 02/24/21 20:20 02/24/21 20:30 02/24/21 21:00 Pulse Rate 72 71 71 Respiratory Rate 21 25 H 21 Blood Pressure 94/61 102/60 Pulse Oximetry 96 94 98 02/24/21 21:30 02/24/21 22:00 02/24/21 22:30 Pulse Rate 78 72 72 Respiratory Rate 15 23 24 Blood Pressure Pulse Oximetry 96 98 98 02/24/21 23:00 02/24/21 23:30 02/24/21 23:31 Pulse Rate 72 72 72 Respiratory Rate 18 19 19 Blood Pressure 111/70 Pulse Oximetry 98 97 97 MDM - Abdominal Pain Lab Data Attestation: I reviewed the patient's lab results. Result diagrams: 02/24/21 19:35 02/24/21 19:35 Labs: Lab Results 02/24/21 02/24/21 02/24/21 Range/Units 19:35 19:35 19:55 WBC 13.0 H (4.5-11.0) X10^3/uL RBC 4.68 (4.0-5.2) X10^6/uL Hgb 14.6 (12.0-16.0) g/dL Hct 43.3 (36-46) % MCV 92.5 (80-100) fL MCH 31.3 (26-34) PG MCHC 33.8 (30-36) % RDW 12.9 (11.6-14.8) % Plt Count 317 (150-400) X10^3/uL Neut % (Auto) 85.5 H (50-75) % Lymph % (Auto) 6.0 L (25-40) % [place] % (Auto) 6.9 (3-14) % Eos % (Auto) 1.1 L (2-4) % Baso % (Auto) 0.5 (0-2) % Neut # (Auto) 66722 H (0606-2606) /uL Lymph # (Auto) 800 L (5874-4533) /uL [place] # (Auto) 900 (0-900) /uL Eos # (Auto) 100 (0-450) /uL Baso # (Auto) 100 (0-100) /uL Sodium 140 (137-145) mmol/L Potassium 3.8 (3.4-5.1) mmol/L Chloride 101 (98-107) mmol/L Carbon Dioxide 31 (22-32) mmol/L BUN 14 (7-17) mg/dL Creatinine 0.79 (0.52-1.04) mg/dL Estimated GFR > 60.0 (>60) mL/min BUN/Creatinine Ratio 17.7 (6-22) Glucose 141 H (70-100) mg/dL Lactate 1.4 (0.7-2.1) mmol/L Calcium 10.0 (8.4-10.2) mg/dL Total Bilirubin 0.6 (0.2-1.3) mg/dL AST 27 (14-36) IU/L ALT 22 (<35) IU/L Alkaline Phosphatase 83 (38-126) U/L Total Protein 8.2 (6.3-8.2) g/dL Albumin 4.8 (3.5-5.0) g/dL Globulin 3.4 (1.7-4.1) g/dL Albumin/Globulin Ratio 1.4 (1.0-2.8) Lipase 121 (23-300) U/L Imaging Data CT scan - abdomen/pelvis: Radiologist's Impression: PROCEDURE: CT ABDOMEN PELVIS W CON INDICATIONS: pain vomiting TECHNIQUE: After the administration of intravenous contrast, axial sections acquired from the lung bases to the pubic symphysis. Coronal and sagittal reformats were performed. For radiation dose reduction, the following was used: automated exposure control, adjustment of mA and/or kV according to patient size. COMPARISON: [facility], CT, CT CHEST ABDOMEN PELVIS WITH CONTRAST, 05/12/2019, 14:33. FINDINGS: Image quality: Excellent. Lung bases: Unremarkable. Heart: No significant findings. ABDOMEN: Liver: Stable small hepatic hypodensity adjacent to the caudate lobe best seen on axial image 10, series 2. Gallbladder: Gallbladder is unremarkable. Incidental note of Phrygian cap. Biliary ducts: Biliary ducts are nondilated. Pancreas: No peripancreatic inflammation. Spleen: Unremarkable. Adrenal Glands: Unremarkable. Kidneys and Ureters: Unremarkable. Stomach and Bowel: Stomach is unremarkable. Stable appearance of prominent, mild circumferential thickening of the pylorus. Moderate fecal material noted throughout the colon. No evidence for colitis. There is long segment of circumferential bowel wall thickening involving the proximal ileum to the terminal ileum. The small bowel is fluid filled with a few short segments of distended air-filled loops of bowel. These are not distended to degree of obstruction. There are mild adjacent inflammatory stranding. The proximal small bowel/jejunum demonstrate normal caliber and wall thickness. No evidence for pneumatosis. No periportal gas. Peritoneum: No free air. Small amount of reactive free fluid noted in the lower abdomen and pelvis. Ventral Wall: No hernia. Abdominal Nodes: No retroperitoneal or mesenteric adenopathy by size criteria. Vessels: Aorta and inferior vena cava are normal in size. PELVIS: Pelvic Organs: Unremarkable. Bladder: Unremarkable. Pelvic Nodes: No enlarged lymph nodes. Miscellaneous: No inguinal hernias are seen. Bones: Unremarkable. IMPRESSION: 1. Long segment of diffuse circumferential wall thickening and fluid within the ileum from the proximally into the terminal ileum. There are a few mildly distended air-filled loops of interspersed small bowel loops. However, no shelli obstruction identified. Findings may represent enteritis either infectious or inflammatory in etiology with associated delayed transit or early developing ileus. Ischemia is felt unlikely. There is associated reactive free fluid. Recommend continued clinical surveillance with follow-up imaging as needed. 2. Moderate fecal burden seen throughout the colon. Findings were discussed with Dr. Nicholas at 2216 hrs PST. Dictated by: Bernard Carcamo M.D. on 02/24/2021 at 21:56 MDM Narrative Medical decision making narrative: The patient is overall feeling a bit better after pain and nausea medication. She has mild leukocytosis of 13. She feels nauseated but does not have diarrhea. There is no sign of bowel obstruction. I did discuss with surgery been updated on patient's symptoms and test results and CT results at this time likely a gastroenteritis. Patient is feeling better. CT did not think that there was mesenteric ischemia. Certainly her pain is not out of proportion and her lactate is is within normal limits. Patient is given strict return precautions she does have significant thickening of her ileum Discharge Plan Departure Patient Disposition: Home Clinical Impression: Gastroenteritis Instructions: DI for Viral Gastroenteritis -- Adult Activity Restrictions/Additional Instructions: *You have been diagnosed with gastroenteritis *What to do: Increase fluid intake. Expect to have some nausea vomiting may experience some diarrhea and some mild mild abdominal pain however if pain is too severe you need to return to the emergency department *Continue to take medications as directed Zofran 4 mg every 8 hours if needed for nausea or vomiting [place] 1 tablet every 4 hours only if needed for severe pain Ibuprofen 600 mg every 6 hours if needed for pain *Follow up with your primary care provider in 2-3 days *Return to ER if you should have increasing pain persistent vomiting, fever more than 100.4, inability to tolerate fluids or any new, worsening or concerning symptoms CONTROLLED SUBSTANCE DISCHARGE (Narcotoic/benzodiazepine/Flexeril/Phenergan) 1. You have been prescribed narcotic medications, it does have acetaminophen/Tylenol/paracetamol in it, DO NOT TAKE MORE THAN 4,00mg in 24 hours of Tylenol. TRAMADOL DOES NOT CONTAIN TYLENOL 2. Please understand that we cannot provide further refills of narcotics, benzodiazepines or controlled substances through the ED and her pain management will need to be through your provider. 3. While on these medications you cannot drive or operate heavy machinery. 4. You cannot sign legal documents or perform any duties such as this. 5. As long as you're taking opiate pain medications he should also be taking a stool softener such as Colace, Dulcolax, MiraLAX or prune juice, to help avoid constipation. Prescriptions: New hydrocodone-acetaminophen 5-325 mg tablet 1 tab PO Q6H PRN (Reason: pain) Qty: 10 RF: 0 ondansetron 4 mg tablet,disintegrating 4 mg PO Q8H PRN (Reason: nausea and vomiting) Qty: 10 RF: 0 No Action atorvastatin 10 mg Tablet 10 mg PO DAILY RF: 0 amlodipine 5 mg Tablet 5 mg PO DAILY RF: 0 lisinopril 40 mg Tablet 40 mg PO DAILY RF: 0
--- NOTE | 2021-02-24 21:02 | DI.CT.S_ITS ---
PROCEDURE: CT ABDOMEN PELVIS W CON INDICATIONS: pain vomiting TECHNIQUE: After the administration of intravenous contrast, axial sections acquired from the lung bases to the pubic symphysis. Coronal and sagittal reformats were performed. For radiation dose reduction, the following was used: automated exposure control, adjustment of mA and/or kV according to patient size. COMPARISON: [facility], CT, CT CHEST ABDOMEN PELVIS WITH CONTRAST, 05/12/2019, 14:33. FINDINGS: Image quality: Excellent. Lung bases: Unremarkable. Heart: No significant findings. ABDOMEN: Liver: Stable small hepatic hypodensity adjacent to the caudate lobe best seen on axial image 10, series 2. Gallbladder: Gallbladder is unremarkable. Incidental note of Phrygian cap. Biliary ducts: Biliary ducts are nondilated. Pancreas: No peripancreatic inflammation. Spleen: Unremarkable. Adrenal Glands: Unremarkable. Kidneys and Ureters: Unremarkable. Stomach and Bowel: Stomach is unremarkable. Stable appearance of prominent, mild circumferential thickening of the pylorus. Moderate fecal material noted throughout the colon. No evidence for colitis. There is long segment of circumferential bowel wall thickening involving the proximal ileum to the terminal ileum. The small bowel is fluid filled with a few short segments of distended air-filled loops of bowel. These are not distended to degree of obstruction. There are mild adjacent inflammatory stranding. The proximal small bowel/jejunum demonstrate normal caliber and wall thickness. No evidence for pneumatosis. No periportal gas. Peritoneum: No free air. Small amount of reactive free fluid noted in the lower abdomen and pelvis. Ventral Wall: No hernia. Abdominal Nodes: No retroperitoneal or mesenteric adenopathy by size criteria. Vessels: Aorta and inferior vena cava are normal in size. PELVIS: Pelvic Organs: Unremarkable. Bladder: Unremarkable. Pelvic Nodes: No enlarged lymph nodes. Miscellaneous: No inguinal hernias are seen. Bones: Unremarkable. IMPRESSION: 1. Long segment of diffuse circumferential wall thickening and fluid within the ileum from the proximally into the terminal ileum. There are a few mildly distended air-filled loops of interspersed small bowel loops. However, no shelli obstruction identified. Findings may represent enteritis either infectious or inflammatory in etiology with associated delayed transit or early developing ileus. Ischemia is felt unlikely. There is associated reactive free fluid. Recommend continued clinical surveillance with follow-up imaging as needed. 2. Moderate fecal burden seen throughout the colon. Findings were discussed with Dr. Nicholas at 2216 hrs [facility]. Dictated by: Bernard Carcamo M.D. on 02/24/2021 at 21:56 Approved by: Bernard Carcamo M.D. on 02/24/2021 at 22:25
[2021-02-24 22:33] LABS: Lactate (Lactic Acid) 1.4 mmol/L (0.7-2.1)
[2021-02-24] MEDS: HYDROCODONE/ACET 5/325 PREPACK 1 BOTTLE MISC (23:35)
== END 2021-02-24 23:45 | disposition home or self-care (01) ==
PROVIDERS: Emergency Provider Emergency Medicine
DX: K52.9 Noninfective gastroenteritis and colitis, unspecified (principal); R11.2 Nausea with vomiting, unspecified
CPT/HCPCS: 36415; 74177; 80053; 83605; 83690; 85025; 93005; 93010; 96361; 96374; 96375; 99284; J1170; J2405; Q9967

== ENCOUNTER 2021-07-31 22:06 | Emergency (ER) | payer OTHER, SELFPAY ==
[2021-07-31 22:13] VITALS: BP 152/77; PULSE 80; RESP 18; TEMP 36.4; O2SAT 99
--- NOTE | 2021-07-31 23:00 | DI.US.S_ITS ---
PROCEDURE: US PERIPH VENOUS LOW EXTREM RT INDICATIONS: PAIN TECHNIQUE: Real-time imaging, as well as color and pulse Doppler interrogation, were performed of the lower extremity deep veins from the inguinal ligament to the popliteal fossa. COMPARISON: None. FINDINGS: The common femoral, femoral and popliteal veins are normally compressible, and free of intraluminal thrombus. Color and pulse Doppler demonstrate normal phasic intraluminal flow. There is normal augmentation response to distal compression maneuver. IMPRESSION: Negative right lower extremity duplex venous ultrasound for DVT. Dictated by: Vidal Acevedo M.D. on 08/01/2021 at 0:02 Approved by: Vidal Acevedo M.D. on 08/01/2021 at 0:02
--- NOTE | 2021-07-31 23:50 | ED.EXTPRO ---
HPI - Extremity Problem General Chief complaint: Extremity Problem,Nontraumatic Stated complaint: sudden onset pain in rt thigh area Time Seen by Provider: 07/31/21 23:00 Source: patient Mode of arrival: Ambulatory Limitations: no limitations History of Present Illness HPI Narrative: Patient is a 60-year-old female with history of breast cancer, hypertension hyperlipidemia presenting with right leg pain since 06/06 this evening. She denies any injury. She says she worked all day started noticing some right thigh pain. She denies any chest pain shortness of breath. No prior history of pulmonary embolism. No redness no fever. She has not had any swelling. She apparently allergic to seafood, which she head recently and took Benadryl tonight, she has no sign of anaphylactic or allergic reaction but does have some itching she says that is unrelated. Related Data Home Medications Medication Instructions Recorded Confirmed amlodipine 5 mg tablet 5 mg PO DAILY 06/25/18 06/28/18 atorvastatin 10 mg tablet 10 mg PO DAILY 06/25/18 06/28/18 lisinopril 40 mg tablet 40 mg PO DAILY 06/25/18 06/28/18 Previous Rx's Medication Instructions Recorded hydrocodone 5 mg-acetaminophen 325 1 tab PO Q6H PRN #10 tab 02/24/21 mg tablet ondansetron 4 mg disintegrating 4 mg PO Q8H PRN #10 tab 02/24/21 tablet Allergies Allergy/AdvReac Type Severity Reaction Status Date / Time hydrochlorothiazide Allergy Rash Verified 02/24/21 19:39 SULFA Allergy Unknown Urticaria Uncoded 02/24/21 19:39 Review of Systems Review of Systems Narrative: GENERAL: Denies chills,fever HEENT: Denies throat pain RESPIRATORY: Denies dyspnea, cough, wheezing CARDIOVASCULAR: Denies chest pain, palpitations GASTROINTESTINAL: Denies nausea, vomiting MUSCULOSKELETAL: See HPI SKIN: No rash, no laceration, no pruritus NEUROLOGIC: Denies weakness, dizziness, headache, numbness 8 point review of systems is negative except for those stated above and HPI Patient History Medical History Breast cancer Eczema Fibrocystic breast HTN (hypertension) Hx of ectopic Hyperlipidemia Ovarian cyst Pelvic pain Right flank pain Surgical History History of breast surgery History of delivery Social History household members: spouse Smoking Status: Never smoker alcohol intake: current Smoking Status: Never smoker alcohol intake frequency: 0-2 drinks per day Substance Use Type: does not use Exam Initial Vital Signs Initial Vital Signs: Vital Signs Temperature 97.6 F 07/31/21 22:13 Pulse Rate 80 07/31/21 22:13 Respiratory Rate 18 07/31/21 22:13 Blood Pressure 152/77 H 07/31/21 22:13 Pulse Oximetry 99 07/31/21 22:13 GENERAL: Alert well-appearing 60-year-old female CARDIOVASCULAR: peripheral pulses in tact, cap refill <2 sec RESPIRATORY: No respiratory distress, speaks in full sentences without difficulty EXTREMITIES: Normal range of motion, no clubbing or edema. Neurovascularly intact. Right leg pain medial thigh no swelling no erythema, distal pedal pulse intact. No obvious deformity NEUROLOGICAL: Cranial nerves II through XII grossly intact. Normal gait and speech. SKIN: Warm, dry, no petechiae, no rashes or lesions. No hives Course Orders Ordered: ED Orders 07/31/21 23:00 US periph venous low extrem rt Stat Vital Signs Vital signs: Vital Signs - 8 hr 07/31/21 22:13 Temperature 97.6 F Pulse Rate 80 Respiratory Rate 18 Blood Pressure 152/77 H Pulse Oximetry 99 MDM - Extremity (Nontraumatic) Imaging Data US - DVT: Radiologist's Impression: PROCEDURE:? US PERIPH VENOUS LOW EXTREM RT ? INDICATIONS:? PAIN ? TECHNIQUE:? Real-time imaging, as well as color and pulse Doppler interrogation, were performed of the lower extremity deep veins from the inguinal ligament to the popliteal fossa.? ? COMPARISON:? None. ? FINDINGS:? The common femoral, femoral and popliteal veins are normally compressible, and free of intraluminal thrombus.? Color and pulse Doppler demonstrate normal phasic intraluminal flow.? There is normal augmentation response to distal compression maneuver. ? ? IMPRESSION:? Negative right lower extremity duplex venous ultrasound for DVT. ? ? Dictated by: Vidal Acevedo M.D. on 08/01/2021 at 0:02 ? ? [facility] Narrative Medical decision making narrative: Patient having some mild right medial thigh pain for 2 hours. She does have history of breast cancer, ultrasound is negative for DVT. This may be possibly too early however actually suspect more of a muscle strain. Nonetheless I recommend she repeat ultrasound as outpatient about 1 week. Discharge Plan Departure Patient Disposition: Home Clinical Impression: Muscle strain of right thigh Instructions: DI for Muscle Strain Activity Restrictions/Additional Instructions: *You have been diagnosed with right muscle strain *What to do: At this time I recommend that he wear compression socks try ice you may need repeat ultrasound in 1 you not had pain for very long it may be too early. *Continue to take medications as directed *Follow up with your primary care provider in 2-3 days *Return to ER if you should have increasing pain, swelling chest pain redness or any new, worsening or concerning symptoms Prescriptions: No Action atorvastatin 10 mg Tablet 10 mg PO DAILY 0RF amlodipine 5 mg Tablet 5 mg PO DAILY 0RF lisinopril 40 mg Tablet 40 mg PO DAILY 0RF hydrocodone-acetaminophen 5-325 mg tablet 1 tab PO Q6H PRN (Reason: pain) Qty: 10 0RF ondansetron 4 mg tablet,disintegrating 4 mg PO Q8H PRN (Reason: nausea and vomiting) Qty: 10 0RF
== END 2021-08-01 00:13 | disposition home or self-care (01) ==
PROVIDERS: Emergency Provider Emergency Medicine
DX: S76.911A Strain of unspecified muscles, fascia and tendons at thigh level, right thigh, initial encounter (principal); X58.XXXA Exposure to other specified factors, initial encounter
CPT/HCPCS: 93971; 99281; 99282; 99284

== ENCOUNTER 2022-03-25 20:09 | Emergency (ER) | payer OTHER, SELFPAY ==
[2022-03-25 20:15] VITALS: BP 121/74; PULSE 95; RESP 20; TEMP 36.5; O2SAT 98; BMI 23.2
--- NOTE | 2022-03-25 20:21 | ED_ITS ---
HPI - Abdominal Pain General Chief Complaint: Abdominal Pain Stated Complaint: severe abd pain Time Seen by Provider: 03/25/22 20:20 Source: patient Mode of arrival: Ambulatory History of Present Illness HPI narrative: 61F nonsmoker with history of hypertension, hyperlipidemia and recurrent breast cancer presents with severe epigastric pain that started a few hours ago. She had eaten a relatively normal, late lunch a few hours prior and developed worsening pain over the course of the day. She states it is worse when she moves and improves when she sits still. She denies any obvious radiation of this pain. She states she has had this type of pain once before but can not recall what it was from. She has had nausea and vomiting. She denies fever or chills. She is had no change in medications or diet nor any recent injury. She denies any chest pain, shortness of breath or cough. She is not dizzy nor weak or lightheaded. Related Data Home Medications Medication Instructions Recorded Confirmed amlodipine 5 mg tablet 5 mg PO DAILY 06/25/18 06/28/18 atorvastatin 10 mg tablet 10 mg PO DAILY 06/25/18 06/28/18 lisinopril 40 mg tablet 40 mg PO DAILY 06/25/18 06/28/18 Previous Rx's Medication Instructions Recorded hydrocodone 5 mg-acetaminophen 325 1 tab PO Q6H PRN pain #10 tabs 02/24/21 mg tablet ondansetron 4 mg disintegrating 4 mg PO Q8H PRN nausea and 02/24/21 tablet vomiting #10 tabs hydrocodone 5 mg-acetaminophen 325 1 tab PO Q4-6H PRN pain #10 tabs 03/26/22 mg tablet ondansetron 4 mg disintegrating 4 mg PO TID-QID PRN nausea and 03/26/22 tablet vomiting #10 tabs Allergies Allergy/AdvReac Type Severity Reaction Status Date / Time hydrochlorothiazide Allergy Rash Verified 02/24/21 19:39 Sulfa (Sulfonamide Allergy Verified 03/25/22 20:15 Antibiotics) Review of Systems Review of Systems Narrative: GENERAL: Denies chills, fatigue, malaise, fever, sweats. HEENT: Denies sinus pain, ear pain, sore throat, difficulty swallowing, dizziness. RESPIRATORY: Denies dyspnea, cough, wheezing, hemoptysis, sputum. CARDIOVASCULAR: Denies chest pain, palpitations, orthopnea, edema, GASTROINTESTINAL: See HPI. : Denies dysuria, frequency, incontinence, hematuria, urinary retention. MUSCULOSKELETAL: denies weakness, joint pain, or bony pain SKIN: Denies rash, skin lesions, or other NEUROLOGIC: Denies weakness, headache, numbness, change in speech, confusion, seizures, incoordination. PSYCHIATRIC: No concerning psychosocial issues. 12 point review of systems is negative except for those stated above Patient History Medical History Breast cancer Eczema Fibrocystic breast HTN (hypertension) Hx of ectopic Hyperlipidemia Ovarian cyst Pelvic pain Right flank pain Surgical History History of breast surgery History of delivery Social History household members: spouse Smoking Status: Never smoker alcohol intake: current Smoking Status: Never smoker alcohol intake frequency: 0-2 drinks per day Substance Use Type: does not use Exam Narrative Exam Narrative: GENERAL: [61] year old patient appears stated age. Well-developed patient, in mild distress. Obviously uncomfortable, clutching her upper abdomen HEAD: Atraumatic. Normocephalic. EYES: Pupils equal round and reactive. Extraocular motions intact. No scleral icterus. No injection or drainage. ENT: Nose without bleeding, purulent drainage. Throat without erythema, tonsillar hypertrophy or exudate. Airway patent. NECK: Trachea midline. Non tender CARDIOVASCULAR: Regular rate and rhythm without murmurs, gallops, or rubs. RESPIRATORY: Clear to auscultation. Breath sounds equal bilaterally. No wheezes, rales, or rhonchi. GASTROINTESTINAL: Abdomen soft, significant tenderness in her epigastrium, nondistended. EXTREMITIES: No edema or joint tenderness. BACK: Nontender without deformity or crepitance. No flank tenderness. NEURO: AOx3. SKIN: No rash or erythema of visible areas Initial Vital Signs Initial Vital Signs: Vital Signs Temperature 97.7 F 03/25/22 20:15 Pulse Rate 95 H 03/25/22 20:15 Respiratory Rate 20 03/25/22 20:15 Blood Pressure 121/74 03/25/22 20:15 Pulse Oximetry 98 03/25/22 20:15 Oxygen Delivery Method 03/25/22 20:15 Course Orders Ordered: ED Orders 03/25/22 20:20 Complete Blood Count AUTO DIFF Stat Comprehensive Metabolic Panel Stat Lipase Stat 03/25/22 20:22 US abdomen limited Stat 03/25/22 20:25 EKG-12 Lead Stat 03/25/22 22:18 CT abdomen pelvis w con Stat Discontinued Medications Hydrocodone Bitart/Acetaminophen (Hydrocodone/Acet 5/325 Prepack) 1 bottle MISC SEEINSTR ONE Stop: 03/26/22 01:46 Hydromorphone HCl (Hydromorphone 0.5 Mg Inj) 0.5 mg IV NOW ONE Stop: 03/25/22 20:23 Last Admin: 03/25/22 20:30 Dose: 0.5 mg Documented By: GWYN Hydromorphone HCl (Hydromorphone 0.5 Mg Inj) 0.5 mg IV NOW ONE Stop: 03/26/22 00:34 Last Admin: 03/26/22 00:38 Dose: 0.5 mg Documented By: GWYN Sodium Chloride (Normal Saline 0.9%) 1,000 mls @ 1,000 mls/hr IV BOLUS ONE Stop: 03/25/22 21:21 Last Infusion: 03/25/22 22:24 Dose: 0 mls/hr Documented By: Admin: 03/25/22 20:30 Dose: 1,000 mls/hr Documented By: GWYN Ondansetron HCl (Ondansetron 4 Mg/2 Ml Inj) 4 mg IV NOW ONE Stop: 03/25/22 20:19 Last Admin: 03/25/22 20:30 Dose: 4 mg Documented By: GWYN Ondansetron HCl (Ondansetron 4 Mg/2 Ml Inj) 4 mg IV NOW ONE Stop: 03/25/22 20:23 Ondansetron HCl (Ondansetron 4 Mg Odt Prepack) 1 bottle MISC SEEINSTR ONE Stop: 03/26/22 01:46 Pantoprazole Sodium (Pantoprazole 40 Mg Vial) 40 mg IV NOW ONE Stop: 03/25/22 20:23 Last Admin: 03/25/22 20:29 Dose: 40 mg Documented By: GWYN Reevaluation(s) Reevaluation #1: significant improvement after above stated therapies Consultations Consultation #1: discussed imaging findings with Gen Surg (Teto) no surgical or even admittable findings provided patient's pain can be tolerated and she can keep liquids down. Vital Signs Vital signs: Vital Signs - 8 hr 03/25/22 20:15 03/25/22 20:55 03/25/22 20:55 Temperature 97.7 F Pulse Rate 95 H 69 Respiratory Rate 20 17 Blood Pressure 121/74 102/57 L 102/57 L Pulse Oximetry 98 99 Oxygen Delivery Method Room Air Room Air 03/25/22 21:30 03/25/22 22:00 Temperature Pulse Rate 70 70 Respiratory Rate 14 14 Blood Pressure 99/59 L 105/57 L Pulse Oximetry 99 99 Oxygen Delivery Method Room Air Room Air MDM - Abdominal Pain Lab Data Result diagrams: 03/25/22 20:20 03/25/22 20:20 Labs: Lab Results 03/25/22 03/25/22 Range/Units 20:20 20:20 WBC 15.1 H (4.5-11.0) X10^3/uL RBC 4.84 (4.0-5.2) X10^6/uL Hgb 14.9 (12.0-16.0) g/dL Hct 44.4 (36-46) % MCV 91.7 (80-100) fL MCH 30.9 (26-34) PG MCHC 33.7 (30-36) % RDW 12.6 (11.6-14.8) % Plt Count 325 (150-400) X10^3/uL Neut % (Auto) 88.1 H (50-75) % Lymph % (Auto) 4.8 L (25-40) % Fannin % (Auto) 6.1 (3-14) % Eos % (Auto) 0.7 L (2-4) % Baso % (Auto) 0.3 (0-2) % Neut # (Auto) 17394 H (0074-5278) /uL Lymph # (Auto) 700 L (0313-4518) /uL Fannin # (Auto) 900 (0-900) /uL Eos # (Auto) 100 (0-450) /uL Baso # (Auto) 0 (0-100) /uL Sodium 140 (137-145) mmol/L Potassium 4.2 (3.4-5.1) mmol/L Chloride 103 (98-107) mmol/L Carbon Dioxide 29 (22-32) mmol/L BUN 14 (7-17) mg/dL Creatinine 0.79 (0.52-1.04) mg/dL Estimated GFR > 60 (>60) mL/min BUN/Creatinine Ratio 17.7 (6-22) Glucose 137 H (80-110) mg/dL Calcium 9.7 (8.4-10.2) mg/dL Total Bilirubin 0.8 (0.2-1.3) mg/dL AST 33 (14-36) IU/L ALT 22 (<35) IU/L Alkaline Phosphatase 87 (38-126) U/L Total Protein 8.6 H (6.3-8.2) g/dL Albumin 5.0 (3.5-5.0) g/dL Globulin 3.6 (1.7-4.1) g/dL Albumin/Globulin Ratio 1.4 (1.0-2.8) Lipase 98 (23-300) U/L Imaging Data US - abdomen: Radiologist's Impression: Close Abdomen/Pelvis CT (Signed) Babar Meek - 03/25/22 Abdomen Ultrasound (Signed) Babar Meek - 03/25/22 PET, Tumor Imaging Skull-Mid Thigh (Signed) Violeta Medeiros - 02/19/22 Vascular Ultrasound (Signed) Vidal Acevedo - 07/31/21 Abdomen/Pelvis CT (Signed) Bernard Carcamo - 02/24/21 Abdomen Ultrasound (Signed) Lupe Cervantes - 06/19/18 Launch?[place] [id number] Ultrasound Report Signed Patient: America Bass MR#: [id number] : 1960 Acct:[id number] Age/Sex: 61 / F Date of Service: 03/25/22 Loc: ED Accession Number: [id number] ?? Procedure: US abdomen limited Ordering Provider: Freedom Blackman D.O. PROCEDURE: US ABDOMEN LIMITED ? INDICATIONS:? SEVERE EPIGASTRIC PAIN ? TECHNIQUE:? Real-time focused scanning was performed of the abdomen, with image documentation.? ? COMPARISON:? [facility], US, US ABDOMEN COMPLETE, 06/19/2018, 20:45. ? FINDINGS:? ? The liver appears normal in size and slightly increased in echogenicity. ? Gallbladder demonstrates no stones, generalized wall thickening, pericholecystic fluid, or reported sonographic Schwarz's sign.? There is a hypoechoic structure adjacent to the gallbladder fundus measuring approximately 1.7 x 1.1 x 1.6 cm.? No internal vascularity on color Doppler interrogation. ? No intra or extrahepatic biliary ductal dilatation.? The visualized common bile duct measures up to 0.5 cm. ? The visualized pancreas appears unremarkable sonographically. ? IMPRESSION:? ? 1. Hypoechoic masslike structure adjacent to the gallbladder fundus.? The finding is incompletely evaluated but suggestive of adenomyomatosis, a nondistended Phrygian cap, or possible mass.? Further evaluation may be obtained with a contrast enhanced MRI.? ? ? Dictated by: Babar Meek M.D. on 03/25/2022 at 22:12 ? ? Approved by: Babar Meek M.D. on 03/25/2022 at 22:16 ? MDM Narrative Medical decision making narrative: Multiple etiologies for patient's symptoms considered include, but not limited to: [Bowel obstruction versus pancreatitis versus gallbladder disease kidney stone versus diverticulitis versus other Patient's symptoms improved over duration of stay with above-stated therapies. History, physical exam, labs, imaging, and response to therapies have been reassuring. Findings and discharge diagnosis discussed with patient/family followed by verbalization of understanding Return precautions discussed with patient/family whom verbalize understanding. Pain has been well controlled and patient is tolerating oral hydration. Discharge Plan Departure Patient Disposition: Home Clinical Impression: Abdominal pain, Ileus Instructions: DI for Abdominal Pain-Adult Activity Restrictions/Additional Instructions: *You have been diagnosed with [abdominal pain] * As we discussed your history and physical exam as well as labs and imaging are very reassuring. There is no evidence of any severe diagnoses that would require a specific or immediate intervention. *What to do: *Please continue to take your regular medications as directed. [x ] New medication prescriptions sent to your pharmacy: [[facility] in [place] ] *Please follow up with your primary care provider in 2-3 days, call for an appointment. Let them know you were seen in the Emergency Department and that we ask that you be seen in follow up. We will electronically transmit a record of today's note if your PCP is in our system *Please consider a clear liquid diet for the next 24-48 hours and then slowly advance to regular as tolerated. Also, try to avoid alcohol, nicotine, caffeine, spicy, acidic or fatty foods as this may worsen your symptoms *If you do not have a primary care provider please contact the [facility] Resource line at [phone]. They will ask some questions about your medical history and help get you set up with a doctor in the community. *Return to Emergency Department if you should have any new, worsening or concerning symptoms, such as [fever greater than 101 F, shaking chills, worsen ing pain, persistent vomiting or other bothersome symptoms] Prescriptions: New hydrocodone-acetaminophen 5-325 mg tablet 1 tab PO Q4-6H PRN (Reason: pain) Qty: 10 0RF ondansetron 4 mg tablet,disintegrating 4 mg PO TID-QID PRN (Reason: nausea and vomiting) Qty: 10 0RF No Action atorvastatin 10 mg Tablet 10 mg PO DAILY amlodipine 5 mg Tablet 5 mg PO DAILY lisinopril 40 mg Tablet 40 mg PO DAILY hydrocodone-acetaminophen 5-325 mg tablet 1 tab PO Q6H PRN (Reason: pain) Qty: 10 0RF ondansetron 4 mg tablet,disintegrating 4 mg PO Q8H PRN (Reason: nausea and vomiting) Qty: 10 0RF Referrals: Roseanna Pineda MD [Primary Care Provider] -
--- NOTE | 2022-03-25 20:22 | DI.US.S_ITS ---
PROCEDURE: US ABDOMEN LIMITED INDICATIONS: SEVERE EPIGASTRIC PAIN TECHNIQUE: Real-time focused scanning was performed of the abdomen, with image documentation. COMPARISON: [facility], US, US ABDOMEN COMPLETE, 06/19/2018, 20:45. FINDINGS: The liver appears normal in size and slightly increased in echogenicity. Gallbladder demonstrates no stones, generalized wall thickening, pericholecystic fluid, or reported sonographic Schwarz's sign. There is a hypoechoic structure adjacent to the gallbladder fundus measuring approximately 1.7 x 1.1 x 1.6 cm. No internal vascularity on color Doppler interrogation. No intra or extrahepatic biliary ductal dilatation. The visualized common bile duct measures up to 0.5 cm. The visualized pancreas appears unremarkable sonographically. IMPRESSION: 1. Hypoechoic masslike structure adjacent to the gallbladder fundus. The finding is incompletely evaluated but suggestive of adenomyomatosis, a nondistended Phrygian cap, or possible mass. Further evaluation may be obtained with a contrast enhanced MRI. Dictated by: Babar Meek M.D. on 03/25/2022 at 22:12 Approved by: Babar Meek M.D. on 03/25/2022 at 22:16
[2022-03-25] MEDS: PANTOPRAZOLE 40 MG VIAL IV (20:29)
[2022-03-25] MEDS: ONDANSETRON 4 MG/2 ML INJ IV (20:30)
[2022-03-25] MEDS: SODIUM CHLORIDE 0.9% 1,000 ML 1000 ML IV (20:30)
[2022-03-25] MEDS: HYDROMORPHONE 0.5 MG INJ IV (20:30)
[2022-03-25 20:39] LABS: Add Manual Diff / Slide Review NO; Basophils Absolute Auto 0 /uL (0-100); Basophils Percent Auto 0.3 % (0-2); Eosinophils Absolute Auto 100 /uL (0-450); Eosinophils Percent Auto 0.7 % (2-4); Hematocrit 44.4 % (36-46); Hemoglobin 14.9 g/dL (12.0-16.0); Lymphocytes Absolute Auto 700 /uL (1100-4500); Lymphocytes Percent Auto 4.8 % (25-40); Mean Corpuscular HGB Conc 33.7 % (30-36); Mean Corpuscular Hemoglobin 30.9 PG (26-34); Mean Corpuscular Volume 91.7 fL (80-100); Monocytes Absolute Auto 900 /uL (0-900); Monocytes Percent Auto 6.1 % (3-14); Neutrophils Absolute Auto 13300 /uL (1500-7000); Neutrophils Percent Auto 88.1 % (50-75); Platelet Count 325 X10^3/uL (150-400); Red Blood Cell Count 4.84 X10^6/uL (4.0-5.2); Red Cell Distribution Width 12.6 % (11.6-14.8); White Blood Cell Count 15.1 X10^3/uL (4.5-11.0)
[2022-03-25 20:54] LABS: Alanine Aminotransferase 22 IU/L (<35); Albumin Globulin Ratio 1.4 (1.0-2.8); Alkaline Phosphatase 87 U/L (38-126); Aspartate Aminotransferase 33 IU/L (14-36); BUN Creatinine Ratio 17.7 (6-22); Bilirubin Total 0.8 mg/dL (0.2-1.3); Blood Urea Nitrogen 14 mg/dL (7-17); Calcium 9.7 mg/dL (8.4-10.2); Carbon Dioxide 29 mmol/L (22-32); Chloride 103 mmol/L (98-107); Estimated Glomerular Filt Rate > 60 mL/min (>60); Globulin 3.6 g/dL (1.7-4.1); Glucose 137 mg/dL (80-110); HEMOLYSIS 20 (0-50); Lipase 98 U/L (23-300); Potassium 4.2 mmol/L (3.4-5.1); Sodium 140 mmol/L (137-145); Total Protein 8.6 g/dL (6.3-8.2)
[2022-03-25 20:55] VITALS: BP 102/57; PULSE 69; RESP 17; O2SAT 99
[2022-03-25 21:30] VITALS: BP 99/59; PULSE 70; RESP 14; O2SAT 99
[2022-03-25 22:00] VITALS: BP 105/57; PULSE 70; RESP 14; O2SAT 99
--- NOTE | 2022-03-25 22:18 | DI.CT.S_ITS ---
PROCEDURE: CT ABDOMEN PELVIS W CON INDICATIONS: severe epigastric pain TECHNIQUE: After the administration of IV contrast, axial sections were acquired from the lung bases to the pubic symphysis. Coronal and sagittal reformats were performed. For radiation dose reduction, the following was used: automated exposure control, adjustment of mA and/or kV according to patient size. COMPARISON: [facility], US, US ABDOMEN LIMITED, 03/25/2022, 20:32. [facility], CT, CT ABDOMEN PELVIS W CON, 02/24/2021, 21:10. FINDINGS: Image quality: Excellent. Lung bases: There is mild dependent atelectasis bilaterally. Heart: Heart is normal in size. There is a small hiatal hernia. ABDOMEN: Liver: There are a few small hypodensities within the liver which are too small to characterize but likely represent cysts. Gallbladder: The gallbladder demonstrates localized wall thickening in the fundus. No calcified gallstones or generalized wall thickening elsewhere. Biliary ducts: No biliary ductal dilatation. Pancreas: Unremarkable. Spleen: Normal in size. Adrenal Glands: No adrenal nodules. Kidneys and Ureters: No hydronephrosis. Stomach and Bowel: There is prominent segmental small bowel wall thickening involving multiple loops of small bowel including the distal jejunum as well as the majority of the ileum with mucosal enhancement and associated fat stranding. There is associated mild upstream dilatation of proximal small bowel loops. A small amount of interloop free fluid is also present. The findings are consistent with an enteritis. No definite bowel obstruction. The appendix is normal in appearance. There is mild wall thickening in the cecum posteriorly which is likely reactive. The colon otherwise demonstrates normal caliber and wall thickness. There are few colonic diverticula without acute diverticulitis. Peritoneum: No abnormal intraperitoneal fluid. No free air. Ventral Wall: No hernia. Abdominal Nodes: No retroperitoneal or mesenteric adenopathy by size criteria. Vessels: Aorta and inferior vena cava are normal in size. PELVIS: Pelvic Organs: Unremarkable. Bladder: Unremarkable. Pelvic Nodes: No enlarged lymph nodes. Miscellaneous: No inguinal hernias are seen. Bones: Visualized osseous structures demonstrate no suspicious focal lesions. IMPRESSION: 1. Multiple segments of prominent small bowel wall thickening with associated fat stranding and mucosal enhancement consistent with an enteritis, likely secondary to an infection or an inflammatory process such as inflammatory bowel disease. 2. Mild upstream dilatation of a few small bowel loops likely reflects an ileus. No definite bowel obstruction. 3. No evidence of appendicitis. 4. Localized wall thickening in the gallbladder fundus redemonstrated likely representing a Phrygian cap or adenomyomatosis. Dictated by: Babar Meek M.D. on 03/25/2022 at 23:39 Approved by: Babar Meek M.D. on 03/25/2022 at 23:47
[2022-03-25 22:40] VITALS: BP 109/59; PULSE 75; RESP 12; O2SAT 100
[2022-03-25 23:00] VITALS: BP 107/66; PULSE 70; RESP 24; O2SAT 98
[2022-03-25] MEDS: ONDANSETRON 4 MG/2 ML INJ (23:24)
[2022-03-26] MEDS: HYDROMORPHONE 0.5 MG INJ IV (00:38)
[2022-03-26] MEDS: ONDANSETRON 4 MG ODT PREPACK 1 BOTTLE MISC (02:02)
[2022-03-26] MEDS: HYDROCODONE/ACET 5/325 PREPACK 1 BOTTLE MISC (02:02)
[2022-03-26 02:05] VITALS: BP 123/59; PULSE 73; RESP 21; O2SAT 98
== END 2022-03-26 02:12 | disposition home or self-care (01) ==
PROVIDERS: Emergency Provider Emergency Medicine; PCP Internal Medicine
DX: K56.7 Ileus, unspecified (principal); R10.13 Epigastric pain
CPT/HCPCS: 36415; 74177; 76705; 80053; 83690; 85025; 93005; 93010; 96361; 96374; 96375; 96376; 99284; C9113; J1170; J2405; Q9967

== ENCOUNTER 2022-03-26 12:32 | Emergency (ER) | payer OTHER, SELFPAY ==
[2022-03-26 12:55] VITALS: BP 119/70; PULSE 80; RESP 16; TEMP 36.9; O2SAT 98; BMI 23.2
[2022-03-26] MEDS: ONDANSETRON 4 MG ODT SL (13:28)
--- NOTE | 2022-03-26 13:32 | ED.ABDPAIN ---
HPI - Abdominal Pain <MARION Sapp - Last Filed: 03/26/22 15:16> General Chief Complaint: Abdominal Pain Stated Complaint: abd. pain/nausea Time Seen by Provider: 03/26/22 13:24 History of Present Illness HPI narrative: This is a 61-year-old nonsmoker female with history of hypertension, hyperlipidemia, recurrent breast cancer and she presents to the emergency department with ongoing nausea and vomiting after being discharged from the emergency department this morning for severe epigastric pain. Patient was diagnosed with an ileus, did not have a bowel obstruction, states that she went home, did not get her medications filled, and started to feel nauseated again and came back to the emergency department. 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 Patient states that she did not know she could pick them up if they did not call her. She denies any new fever, or any changes, she denies any vomiting of blood, states that her pain was starting to return as well. Related Data Home Medications Medication Instructions Recorded Confirmed amlodipine 5 mg tablet 5 mg PO DAILY 06/25/18 06/28/18 atorvastatin 10 mg tablet 10 mg PO DAILY 06/25/18 06/28/18 lisinopril 40 mg tablet 40 mg PO DAILY 06/25/18 06/28/18 Previous Rx's Medication Instructions Recorded hydrocodone 5 mg-acetaminophen 325 1 tab PO Q6H PRN pain #10 tabs 02/24/21 mg tablet ondansetron 4 mg disintegrating 4 mg PO Q8H PRN nausea and 02/24/21 tablet vomiting #10 tabs hydrocodone 5 mg-acetaminophen 325 1 tab PO Q4-6H PRN pain #10 tabs 03/26/22 mg tablet ondansetron 4 mg disintegrating 4 mg PO TID-QID PRN nausea and 03/26/22 tablet vomiting #10 tabs Allergies Allergy/AdvReac Type Severity Reaction Status Date / Time hydrochlorothiazide Allergy Rash Verified 02/24/21 19:39 Sulfa (Sulfonamide Allergy Verified 03/25/22 20:15 Antibiotics) Review of Systems <MARION Sapp - Last Filed: 03/26/22 15:16> Review of Systems Narrative: General: denies fever, chills Head/Neck: denies headache, neck pain Eyes: denies visual changes, eye pain Cardio: denies chest pain, palpitations Respiratory: denies shortness of breath, cough GI: Endorses ongoing epigastric abdominal pain with nausea, vomiting, denies diarrhea : denies dysuria, hematuria or flank pain MSK: denies new joint pain, muscle weakness or swelling Skin: denies rash, itching or wound Neuro: denies numbness, tingling, dizziness Patient History <MARION Sapp - Last Filed: 03/26/22 15:16> Medical History Breast cancer Eczema Fibrocystic breast HTN (hypertension) Hx of ectopic Hyperlipidemia Ovarian cyst Pelvic pain Right flank pain Surgical History History of breast surgery History of delivery Social History household members: spouse Smoking Status: Never smoker alcohol intake: current Smoking Status: Never smoker alcohol intake frequency: 0-2 drinks per day Substance Use Type: does not use Exam <AMRION Sapp - Last Filed: 03/26/22 15:16> Narrative Exam Narrative: Independently reviewed vitals signs and nursing notes. General: cooperative, appears uncomfortable without any cardio pulmonary distress, well groomed, pleasant Head: atraumatic, symmetrical facial expressions Neck: supple Eyes: equal round and reactive, EOMI, conjunctiva normal Nose: nares patent, no rhinorrhea Mouth/Throat: moist mucus membranes Cardiovascular: regular rate and rhythm, no peripheral edema, warm extremities Respiratory: normal effort, able to speak in complete sentences, no audible wheezing, stridor, or rales. No retractions or tachypnea. GI: abdomen soft, nondistended, no masses, abdomen tender in her epigastrium, nontender in other abdominal quadrants, without guarding or rebound. MSK: moves all extremities, neurovascularly intact, no weakness, normal tone Skin: brisk capillary refill, no rash, no erythema Neuro: normal speech and cognition, A&O x3 Psych: mental status is grossly normal, congruent mood, normal affect, pleasant and cooperative Initial Vital Signs Initial Vital Signs: Vital Signs Temperature 98.4 F 07/20/22 12:55 Pulse Rate 80 03/26/22 12:55 Respiratory Rate 16 03/26/22 12:55 Blood Pressure 119/70 03/26/22 12:55 Pulse Oximetry 98 03/26/22 12:55 Oxygen Delivery Method 03/26/22 12:55 <Lyndsay Nicholas DO - Last Filed: 03/30/22 07:57> Initial Vital Signs Initial Vital Signs: Vital Signs Temperature 98.4 F 03/26/22 12:55 Pulse Rate 80 03/26/22 12:55 Respiratory Rate 16 03/26/22 12:55 Blood Pressure 119/70 03/26/22 12:55 Pulse Oximetry 98 03/26/22 12:55 Oxygen Delivery Method 03/26/22 12:55 Course <MARION Sapp - Last Filed: 03/26/22 15:16> Orders Ordered: Discontinued Medications Ondansetron HCl (Ondansetron 4 Mg Odt) 4 mg SL NOW ONE Stop: 03/26/22 13:02 Last Admin: 03/26/22 13:28 Dose: 4 mg Documented By: CTS Vital Signs Vital signs: Vital Signs - 8 hr 03/26/22 12:55 Temperature 98.4 F Pulse Rate 80 Respiratory Rate 16 Blood Pressure 119/70 Pulse Oximetry 98 Oxygen Delivery Method Room Air <Lyndsay Nicholas DO - Last Filed: 03/30/22 07:57> Orders Ordered: Discontinued Medications Ondansetron HCl (Ondansetron 4 Mg Odt) 4 mg SL NOW ONE Stop: 03/26/22 13:02 Last Admin: 03/26/22 13:28 Dose: 4 mg Documented By: CTS Vital Signs Vital signs: Vital Signs - 8 hr 03/26/22 12:55 Temperature 98.4 F Pulse Rate 80 Respiratory Rate 16 Blood Pressure 119/70 Pulse Oximetry 98 Oxygen Delivery Method Room Air MDM - Abdominal Pain <MARION Sapp - Last Filed: 03/26/22 15:16> Imaging Data CT scan - abdomen/pelvis: Radiologist's Impression: PROCEDURE:? CT ABDOMEN PELVIS W CON ? INDICATIONS:? severe epigastric pain ? TECHNIQUE:? After the administration of IV contrast, axial sections were acquired from the lung bases to the pubic symphysis.? Coronal and sagittal reformats were performed.? For radiation dose reduction, the following was used:? automated exposure control, adjustment of mA and/or kV according to patient size. ? COMPARISON:? [facility], US, US ABDOMEN LIMITED, 03/25/2022, 20:32.? [facility], CT, CT ABDOMEN PELVIS W CON, 02/24/2021, 21:10. ? FINDINGS:? Image quality:? Excellent.? ? Lung bases:? There is mild dependent atelectasis bilaterally.? ? Heart:? Heart is normal in size.? There is a small hiatal hernia. ? ? ABDOMEN: Liver:? There are a few small hypodensities within the liver which are too small to characterize but likely represent cysts. Gallbladder:? The gallbladder demonstrates localized wall thickening in the fundus.? No calcified gallstones or generalized wall thickening elsewhere. Biliary ducts:? No biliary ductal dilatation.? ? Pancreas:? Unremarkable.? ? Spleen:? Normal in size.? ? Adrenal Glands:? No adrenal nodules.? ? Kidneys and Ureters:? No hydronephrosis.? ? ? Stomach and Bowel:? There is prominent segmental small bowel wall thickening involving multiple loops of small bowel including the distal jejunum as well as the majority of the ileum with mucosal enhancement and associated fat stranding.? There is associated mild upstream dilatation of proximal small bowel loops.? A small amount of interloop free fluid is also present.? The findings are consistent with an enteritis.? No definite bowel obstruction.? The appendix is normal in appearance.? There is mild wall thickening in the cecum posteriorly which is likely reactive.? The colon otherwise demonstrates normal caliber and wall thickness.? There are few colonic diverticula without acute diverticulitis. Peritoneum:? No abnormal intraperitoneal fluid.? No free air.? ? Ventral Wall: ? No hernia.? Abdominal Nodes:? No retroperitoneal or mesenteric adenopathy by size criteria.? Vessels:? Aorta and inferior vena cava are normal in size.? ? PELVIS: Pelvic Organs:? Unremarkable.? ? Bladder:? Unremarkable.? ? Pelvic Nodes: No enlarged lymph nodes.? Miscellaneous: No inguinal hernias are seen. ? ? ? Bones:? Visualized osseous structures demonstrate no suspicious focal lesions. ? IMPRESSION:? ? 1. Multiple segments of prominent small bowel wall thickening with associated fat stranding and mucosal enhancement consistent with an enteritis, likely secondary to an infection or an inflammatory process such as inflammatory bowel disease. ? 2. Mild upstream dilatation of a few small bowel loops likely reflects an ileus.? No definite bowel obstruction. ? 3. No evidence of appendicitis. ? 4. Localized wall thickening in the gallbladder fundus redemonstrated likely representing a Phrygian cap or adenomyomatosis.? ? ? Dictated by: Babar Meek M.D. on 03/25/2022 at 23:39 ? ? Approved by: Babar Meek M.D. on 03/25/2022 at 23:47 ? US - OB: Radiologist's Impression: PROCEDURE: US ABDOMEN LIMITED ? INDICATIONS:? SEVERE EPIGASTRIC PAIN ? TECHNIQUE:? Real-time focused scanning was performed of the abdomen, with image documentation.? ? COMPARISON:? [facility], US ABDOMEN COMPLETE, 06/19/2018, 20:45. ? FINDINGS:? ? The liver appears normal in size and slightly increased in echogenicity. ? Gallbladder demonstrates no stones, generalized wall thickening, pericholecystic fluid, or reported sonographic Schwarz's sign.? There is a hypoechoic structure adjacent to the gallbladder fundus measuring approximately 1.7 x 1.1 x 1.6 cm.? No internal vascularity on color Doppler interrogation. ? No intra or extrahepatic biliary ductal dilatation.? The visualized common bile duct measures up to 0.5 cm. ? The visualized pancreas appears unremarkable sonographically. ? IMPRESSION:? ? 1. Hypoechoic masslike structure adjacent to the gallbladder fundus.? The finding is incompletely evaluated but suggestive of adenomyomatosis, a nondistended Phrygian cap, or possible mass.? Further evaluation may be obtained with a contrast enhanced MRI.? ? ? Dictated by: Babar Meek M.D. on 03/25/2022 at 22:12 ? ? Approved by: Babar Meek M.D. on 03/25/2022 at 22:16 ? US - abdomen: Radiologist's Impression: PROCEDURE: US ABDOMEN LIMITED ? INDICATIONS:? SEVERE EPIGASTRIC PAIN ? TECHNIQUE:? Real-time focused scanning was performed of the abdomen, with image documentation.? ? COMPARISON:? [facility], US ABDOMEN COMPLETE, 06/19/2018, 20:45. ? FINDINGS:? ? The liver appears normal in size and slightly increased in echogenicity. ? Gallbladder demonstrates no stones, generalized wall thickening, pericholecystic fluid, or reported sonographic Schwarz's sign.? There is a hypoechoic structure adjacent to the gallbladder fundus measuring approximately 1.7 x 1.1 x 1.6 cm.? No internal vascularity on color Doppler interrogation. ? No intra or extrahepatic biliary ductal dilatation.? The visualized common bile duct measures up to 0.5 cm. ? The visualized pancreas appears unremarkable sonographically. ? IMPRESSION:? ? 1. Hypoechoic masslike structure adjacent to the gallbladder fundus.? The finding is incompletely evaluated but suggestive of adenomyomatosis, a nondistended Phrygian cap, or possible mass.? Further evaluation may be obtained with a contrast enhanced MRI.? ? ? Dictated by: Babar Meek M.D. on 03/25/2022 at 22:12 ? ? Approved by: Babar Meek M.D. on 03/25/2022 at 22:16 ? MDM Narrative Medical decision making narrative: This is a 61-year-old female who was discharged this morning from the emergency department for epigastrium pain and received an abdominal ultrasound which showed a hypoechoic masslike structure adjacent to the gallbladder fundus. Her CT abdomen/pelvis with contrast shows multiple segments of prominent bowel wall thickening with associated fat stranding and mucosal enhancement consistent with enteritis, likely secondary to an infection or inflammatory process. Mild upstream dilation of a few small bowel loops likely reflecting an ileus, no definite bowel obstruction. No evidence of appendicitis. Localized wall thickening in the gallbladder fundus redemonstrated likely representing Phrygian cap or adenomyomatosis.? Discussed bowel rest, antiemetics on schedule, and return to the emergency department if her pain worsens while doing these things. Patient reports that she has not rested yet, she has not picked up her medications, and she will go home and pick them up and come back if she has any worsening pain. She often to not pursue additional testing since her tests were all completed within the last 24 hours. She is nontoxic appearing, has normal vital signs, without toxic appearance, or fever, or any acute or progressive symptoms that are concerning for emergency at this time. Discussed returning to the emergency department for worsening nausea and vomiting while taking antiemetics, worsening pain while taking her prescribed pain medication, or blood in her emesis or stool or feeling weak. Patient states understanding. Differential diagnoses include bowel obstruction versus pancreatitis versus gallbladder disease, kidney stone versus diverticulitis, colitis, gastroenteritis versus other. Patient is appropriate and amenable to discharge home. Vital signs are stable on repeat examination is unremarkable. Patient has been informed of results. Patient has been given strict return to ER precautions for any new or worsening symptoms. Patient understands to follow up closely with outpatient providers as instructed. Patient understands plan and agrees to discharge home. All questions and concerns answered at this time. 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 Please get some rest, I hope you feel better soon. *What to do: *Please continue to take your regular medications as directed. [ ] New medication prescriptions sent to your pharmacy: [ ] [ ] New medication written as a paper prescription [x ] No new medications given *Please follow up with your primary care provider in 2-3 days, call for an appointment. Let them know you were seen in the Emergency Department and that we asked that you be seen for follow-up. We will electronically transmit a record of today's note if your PCP is in our system *If you do not have a primary care provider please contact [phone] to establish care with one of the [facility] primary care providers. *Return to Emergency Department if you should have any new, worsening or concerning symptoms, such as [fever greater than 101F, chills, worsening pain, persistent vomiting or other bothersome symptoms] Prescriptions: No Action atorvastatin 10 mg Tablet 10 mg PO DAILY amlodipine 5 mg Tablet 5 mg PO DAILY lisinopril 40 mg Tablet 40 mg PO DAILY hydrocodone-acetaminophen 5-325 mg tablet 1 tab PO Q6H PRN (Reason: pain) Qty: 10 0RF ondansetron 4 mg tablet,disintegrating 4 mg PO Q8H PRN (Reason: nausea and vomiting) Qty: 10 0RF hydrocodone-acetaminophen 5-325 mg tablet 1 tab PO Q4-6H PRN (Reason: pain) Qty: 10 0RF ondansetron 4 mg tablet,disintegrating 4 mg PO TID-QID PRN (Reason: nausea and vomiting) Qty: 10 0RF Referrals: Roseanna Pineda MD [Primary Care Provider] - Visit Report Forms: Patient Portal/API <Lyndsay Nicholas DO - Last Filed: 03/30/22 07:57> Cosign ED Attending Arelisature Attestation: I was immediately available in the department for consultation. Documentation has been reviewed. I agree with assessment and plan.
== END 2022-03-26 13:31 | disposition home or self-care (01) ==
PROVIDERS: Emergency Provider Nurse Practitioner Critical Care Medicine; PCP Internal Medicine
DX: R11.2 Nausea with vomiting, unspecified (principal); R10.13 Epigastric pain
CPT/HCPCS: 99282; 99283

== ENCOUNTER 2022-11-27 00:02 | Emergency (ER) | payer OTHER, SELFPAY ==
[2022-11-27] VITALS (7 sets, daily range): BP systolic 92–107; BP diastolic 53–78; PULSE 67–77; RESP 16–20; TEMP 36.5; O2SAT 98–100; BMI 23.6
--- NOTE | 2022-11-27 00:13 | DI.RAD.S_ITS ---
PROCEDURE: XR CHEST 1V INDICATIONS: chest pain TECHNIQUE: One view of the chest was acquired. COMPARISON: None. FINDINGS: Surgical changes and devices: A right subclavian Port-A-Cath is demonstrated with the tip projecting over the superior vena cava. Bilateral surgical clips are noted in the chest wall. Lungs and pleura: Lungs are clear. No pleural effusions or pneumothorax. Mediastinum: Mediastinal contours appear normal. Heart size is normal. Bones and chest wall: No suspicious bony lesions. Overlying soft tissues appear unremarkable. IMPRESSION: 1. No acute cardiopulmonary disease. Dictated by: Babar Meek M.D. on 11/27/2022 at 1:38 Approved by: Babar Meek M.D. on 11/27/2022 at 1:39
--- NOTE | 2022-11-27 00:25 | ED_ITS ---
HPI - Chest Pain General Chief Complaint: Chest Pain Stated Complaint: CHEST PAINS Time Seen by Provider: 11/27/22 00:13 Source: patient and family Mode of arrival: Ambulatory Limitations: no limitations History of Present Illness HPI narrative: 62-year-old female nonsmoker with history of breast cancer, hypertension, hyperlipidemia presents with a chief complaint of sudden onset central chest pain that woke her from sleep a few hours prior she states her pain had resolved prior to arrival. She denies any obvious provocation, palliation or radiation of symptoms. She denies associated symptoms such as dizziness, weakness or lightheadedness. She is had no fever or chills. She denies exertional symptoms and has no complaint of exercise intolerance. She denies any weight gain or orthopnea. Related Data Home Medications Medication Instructions Recorded Confirmed amlodipine 5 mg tablet 5 mg PO DAILY 06/25/18 06/28/18 atorvastatin 10 mg tablet 10 mg PO DAILY 06/25/18 06/28/18 lisinopril 40 mg tablet 40 mg PO DAILY 06/25/18 06/28/18 Previous Rx's Medication Instructions Recorded hydrocodone 5 mg-acetaminophen 325 1 tab PO Q6H PRN pain #10 tabs 02/24/21 mg tablet ondansetron 4 mg disintegrating 4 mg PO Q8H PRN nausea and 02/24/21 tablet vomiting #10 tabs hydrocodone 5 mg-acetaminophen 325 1 tab PO Q4-6H PRN pain #10 tabs 03/26/22 mg tablet ondansetron 4 mg disintegrating 4 mg PO TID-QID PRN nausea and 03/26/22 tablet vomiting #10 tabs Allergies Allergy/AdvReac Type Severity Reaction Status Date / Time hydrochlorothiazide Allergy Rash Verified 11/27/22 00:38 Sulfa (Sulfonamide Allergy Verified 11/27/22 00:38 Antibiotics) Review of Systems Review of Systems Narrative: GENERAL: Denies chills, fatigue, malaise, fever, sweats. HEENT: Denies sinus pain, ear pain, sore throat, difficulty swallowing, dizziness. RESPIRATORY: Denies dyspnea, cough, wheezing, hemoptysis, sputum. CARDIOVASCULAR: See HPI GASTROINTESTINAL: Denies nausea, vomiting, abdominal pain, diarrhea, constipation, melena. : Denies dysuria, frequency, incontinence, hematuria, urinary retention. MUSCULOSKELETAL: denies weakness, joint pain, or bony pain SKIN: Denies rash, skin lesions, or other NEUROLOGIC: Denies weakness, headache, numbness, change in speech, confusion, seizures, incoordination. PSYCHIATRIC: No concerning psychosocial issues. 12 point review of systems is negative except for those stated above Patient History Medical History Breast cancer Eczema Fibrocystic breast HTN (hypertension) Hx of ectopic Hyperlipidemia Ovarian cyst Pelvic pain Right flank pain Surgical History History of breast surgery History of delivery Social History household members: spouse Smoking Status: Never smoker alcohol intake: current Smoking Status: Never smoker alcohol intake frequency: 0-2 drinks per day Substance Use Type: does not use Exam Narrative Exam Narrative: GENERAL: [62] year old patient appears stated age. Well-developed patient, in mild distress. HEAD: Atraumatic. Normocephalic. EYES: Pupils equal round and reactive. Extraocular motions intact. No scleral icterus. No injection or drainage. ENT: Nose without bleeding, purulent drainage. Throat without erythema, tonsillar hypertrophy or exudate. Airway patent. NECK: Trachea midline. Non tender CARDIOVASCULAR: Regular rate and rhythm without murmurs, gallops, or rubs. RESPIRATORY: Clear to auscultation. Breath sounds equal bilaterally. No wheezes, rales, or rhonchi. GASTROINTESTINAL: Abdomen soft, non-tender, nondistended. EXTREMITIES: No edema or joint tenderness. BACK: Nontender without deformity or crepitance. No flank tenderness. NEURO: AOx3. SKIN: No rash or erythema of visible areas Initial Vital Signs Initial Vital Signs: Vital Signs Temperature 97.7 F 11/27/22 00:06 Pulse Rate 77 11/27/22 00:06 Respiratory Rate 18 11/27/22 00:06 Blood Pressure 107/58 L 11/27/22 00:06 Pulse Oximetry 100 11/27/22 00:06 Oxygen Delivery Method Room Air 11/27/22 00:06 Scores HEART Score Heart Score history: Slightly Suspicious Heart Score EKG: Normal Heart Score Age: 45-64 years old Heart Score risk factors: 1-2 risk factors Heart Score troponin: < or = to normal limit Heart Score Total: 2 Course Orders Ordered: ED Orders 11/27/22 EKG-12 Lead Routine 11/27/22 00:13 XR chest 1V Stat EKG-12 Lead Stat 11/27/22 00:20 COVID19 -Nasal RAPID Stat CRP [C-Reactive Protein Quant] Stat Complete Blood Count AUTO DIFF Stat Comprehensive Metabolic Panel Stat D Dimer Stat ESR [Erythrocyte Sedimentation Rate] Stat Lipase Stat Magnesium Stat PTT Partial Thromboplastin Job Stat Prothrombin Time INR Stat Troponin & CK Cardiac Panel Stat 11/27/22 01:25 CT angio chest PE protocol Stat 11/27/22 03:22 Troponin & CK Cardiac Panel Stat Discontinued Medications Aspirin (Aspirin 81 Mg Chew Tab) 324 mg PO NOW ONE Stop: 11/27/22 00:14 Last Admin: 11/27/22 00:38 Dose: 324 mg Documented By: RB Morphine Sulfate (Morphine 4 Mg/Ml Inj) 4 mg IV NOW ONE Stop: 11/27/22 00:35 Last Admin: 11/27/22 00:38 Dose: 4 mg Documented By: RB Vital Signs Vital signs: Vital Signs - 8 hr 11/27/22 00:06 Temperature 97.7 F Pulse Rate 77 Respiratory Rate 18 Blood Pressure 107/58 L Pulse Oximetry 100 Oxygen Delivery Method Room Air MDM - Chest Pain Lab Data 11/27/22 00:20 11/27/22 00:20 Labs: Lab Results 11/27/22 11/27/22 11/27/22 Range/Units 00:20 00:20 00:20 WBC 4.8 (4.5-11.0) X10^3/uL RBC 4.18 (4.0-5.2) X10^6/uL Hgb 12.5 (12.0-16.0) g/dL Hct 37.6 (36-46) % MCV 90.0 (80-100) fL MCH 29.9 (26-34) PG MCHC 33.2 (30-36) % RDW 12.8 (11.6-14.8) % Plt Count 282 (150-400) X10^3/uL Neut % (Auto) 63.0 (50-75) % Lymph % (Auto) 19.2 L (25-40) % [place] % (Auto) 12.0 (3-14) % Eos % (Auto) 4.6 H (2-4) % Baso % (Auto) 1.2 (0-2) % Neut # (Auto) 3100 (6109-1830) /uL Lymph # (Auto) 900 L (0561-7774) /uL [place] # (Auto) 600 (0-900) /uL Eos # (Auto) 200 (0-450) /uL Baso # (Auto) 100 (0-100) /uL ESR (0-20) MM/HR PT 10.0 L (10.1-12.7) SECONDS INR 0.9 (0.9-1.3) APTT 33 (26-36) SECONDS D-Dimer (<500) ng/ml Sodium 136 L (137-145) mmol/L Potassium 3.6 (3.4-5.1) mmol/L Chloride 99 (98-107) mmol/L Carbon Dioxide 32 (22-32) mmol/L BUN 16 (7-17) mg/dL Creatinine 0.99 (0.52-1.04) mg/dL Estimated GFR > 60 (>60) mL/min BUN/Creatinine Ratio 16.2 (6-22) Glucose 147 H (80-110) mg/dL Calcium 8.9 (8.4-10.2) mg/dL Magnesium 2.0 (1.6-2.3) mg/dL Total Bilirubin 0.4 (0.2-1.3) mg/dL AST 32 (14-36) IU/L ALT 24 (<35) IU/L Alkaline Phosphatase 65 (38-126) U/L Total Creatine Kinase 110 (30-135) U/L CK-MB (CK-2) 0.65 (<2.37) ng/mL CK-MB (CK-2) Rel Index 0.6 L (1.5-5.0) % Troponin I < 0.012 (0.01-0.034) ng/mL C-Reactive Protein (<1.0) mg/dL Total Protein 7.1 (6.3-8.2) g/dL Albumin 4.0 (3.5-5.0) g/dL Globulin 3.1 (1.7-4.1) g/dL Albumin/Globulin Ratio 1.3 (1.0-2.8) Lipase 160 (23-300) U/L SARS-CoV-2 (PCR) (Negative) 11/27/22 11/27/22 11/27/22 Range/Units 00:20 00:20 00:20 WBC (4.5-11.0) X10^3/uL RBC (4.0-5.2) X10^6/uL Hgb (12.0-16.0) g/dL Hct (36-46) % MCV (80-100) fL MCH (26-34) PG MCHC (30-36) % RDW (11.6-14.8) % Plt Count (150-400) X10^3/uL Neut % (Auto) (50-75) % Lymph % (Auto) (25-40) % [place] % (Auto) (3-14) % Eos % (Auto) (2-4) % Baso % (Auto) (0-2) % Neut # (Auto) (9893-7798) /uL Lymph # (Auto) (3866-8196) /uL [place] # (Auto) (0-900) /uL Eos # (Auto) (0-450) /uL Baso # (Auto) (0-100) /uL ESR 17 (0-20) MM/HR PT (10.1-12.7) SECONDS INR (0.9-1.3) APTT (26-36) SECONDS D-Dimer 2016 H (<500) ng/ml Sodium (137-145) mmol/L Potassium (3.4-5.1) mmol/L Chloride (98-107) mmol/L Carbon Dioxide (22-32) mmol/L BUN (7-17) mg/dL Creatinine (0.52-1.04) mg/dL Estimated GFR (>60) mL/min BUN/Creatinine Ratio (6-22) Glucose (80-110) mg/dL Calcium (8.4-10.2) mg/dL Magnesium (1.6-2.3) mg/dL Total Bilirubin (0.2-1.3) mg/dL AST (14-36) IU/L ALT (<35) IU/L Alkaline Phosphatase (38-126) U/L Total Creatine Kinase (30-135) U/L CK-MB (CK-2) (<2.37) ng/mL CK-MB (CK-2) Rel Index (1.5-5.0) % Troponin I (0.01-0.034) ng/mL C-Reactive Protein (<1.0) mg/dL Total Protein (6.3-8.2) g/dL Albumin (3.5-5.0) g/dL Globulin (1.7-4.1) g/dL Albumin/Globulin Ratio (1.0-2.8) Lipase (23-300) U/L SARS-CoV-2 (PCR) Negative (Negative) 11/27/22 Range/Units 00:20 WBC (4.5-11.0) X10^3/uL RBC (4.0-5.2) X10^6/uL Hgb (12.0-16.0) g/dL Hct (36-46) % MCV (80-100) fL MCH (26-34) PG MCHC (30-36) % RDW (11.6-14.8) % Plt Count (150-400) X10^3/uL Neut % (Auto) (50-75) % Lymph % (Auto) (25-40) % [place] % (Auto) (3-14) % Eos % (Auto) (2-4) % Baso % (Auto) (0-2) % Neut # (Auto) (2135-0009) /uL Lymph # (Auto) (9236-9924) /uL [place] # (Auto) (0-900) /uL Eos # (Auto) (0-450) /uL Baso # (Auto) (0-100) /uL ESR (0-20) MM/HR PT (10.1-12.7) SECONDS INR (0.9-1.3) APTT (26-36) SECONDS D-Dimer (<500) ng/ml Sodium (137-145) mmol/L Potassium (3.4-5.1) mmol/L Chloride (98-107) mmol/L Carbon Dioxide (22-32) mmol/L BUN (7-17) mg/dL Creatinine (0.52-1.04) mg/dL Estimated GFR (>60) mL/min BUN/Creatinine Ratio (6-22) Glucose (80-110) mg/dL Calcium (8.4-10.2) mg/dL Magnesium (1.6-2.3) mg/dL Total Bilirubin (0.2-1.3) mg/dL AST (14-36) IU/L ALT (<35) IU/L Alkaline Phosphatase (38-126) U/L Total Creatine Kinase (30-135) U/L CK-MB (CK-2) (<2.37) ng/mL CK-MB (CK-2) Rel Index (1.5-5.0) % Troponin I (0.01-0.034) ng/mL C-Reactive Protein < 0.5 (<1.0) mg/dL Total Protein (6.3-8.2) g/dL Albumin (3.5-5.0) g/dL Globulin (1.7-4.1) g/dL Albumin/Globulin Ratio (1.0-2.8) Lipase (23-300) U/L SARS-CoV-2 (PCR) (Negative) MDM Narrative Medical decision making narrative: CC: 62-year-old female with sudden onset retrosternal chest pain Complicating co-morbidities: Age, cancer, hypertension, hyperlipidemia Data collected from: Patient Medical records reviewed: Prior notes reviewed in our EMR Differential considered, but not limited to: Cardiac ischemia, pulmonary embolism, esophageal spasm versus other Exam documented above, pertinent findings include: Heart rate regular, lungs clear and nonlabored, abdomen soft and nontender Lab Test results independently reviewed as above. Pertinent findings: D-dimer critically elevated, troponin x2 negative, CBC without significant findings, electrolytes and renal function without abnormal findings Independently reviewed EKG as above Imaging studies independently reviewed: CT angiogram without evidence of pulmonary embolism Scores Used:HEART Treatments: Aspirin, Morphine Re-evaluations: Symptom free Discussion: 62-year-old with central nonradiating, nonexertional chest pain that is low risk per heart score. Elevated D-dimer but negative CT angiogram for pulmonary embolism, pericardial effusion or other significant finding. She is pain-free for nearly the entire duration of her visit and has nonischemic EKGs. We discussed the utility of the heart score and the importance of close follow-up. She understands this and agrees to return should her symptoms worsen or persist. She has had her questions answered to her apparent satisfaction Disposition: see below, along with detailed discharge instructions that have been reviewed with patient as well as indications for ED re-evaluation and additional outpatient follow up Discharge Plan Departure Patient Disposition: Home Clinical Impression: Chest pain Instructions: DI for Chest Pain Activity Restrictions/Additional Instructions: *You have been diagnosed with [chest pain. As we discussed your history and physical exam as well as labs, EKG and imaging are very reassuring and there is no evidence of heart attack, blood clot or other significant diagnosis that requires a specific and immediate intervention. As we discussed it is very important to follow closely with your doctor and certainly return here if things get worse] *What to do: *Please continue to take your regular medications as directed. *Please follow up with your primary care provider in 2-3 days, call for an appointment. Let them know you were seen in the Emergency Department and that we ask that you be seen in follow up. We will electronically transmit a record of today's note if your PCP is in our system *If you do not have a primary care provider please contact [facility] Resource line at [phone]. They will ask some questions about your medical history and help get you set up with a doctor in the community. *Return to Emergency Department if you should have any new, worsening or concerning symptoms, such as [fever greater than 101 F, shaking chills, wo rsening pain, persistent vomiting or other bothersome symptoms] Prescriptions: No Action atorvastatin 10 mg Tablet 10 mg PO DAILY amlodipine 5 mg Tablet 5 mg PO DAILY lisinopril 40 mg Tablet 40 mg PO DAILY hydrocodone-acetaminophen 5-325 mg tablet 1 tab PO Q6H PRN (Reason: pain) Qty: 10 0RF ondansetron 4 mg tablet,disintegrating 4 mg PO Q8H PRN (Reason: nausea and vomiting) Qty: 10 0RF hydrocodone-acetaminophen 5-325 mg tablet 1 tab PO Q4-6H PRN (Reason: pain) Qty: 10 0RF ondansetron 4 mg tablet,disintegrating 4 mg PO TID-QID PRN (Reason: nausea and vomiting) Qty: 10 0RF Referrals: Roseanna Pineda MD [Primary Care Provider] - Stand Alone Forms: Patient Portal/API
[2022-11-27 00:31] LABS: Add Manual Diff / Slide Review NO; Basophils Absolute Auto 100 /uL (0-100); Basophils Percent Auto 1.2 % (0-2); Eosinophils Absolute Auto 200 /uL (0-450); Eosinophils Percent Auto 4.6 % (2-4); Hematocrit 37.6 % (36-46); Hemoglobin 12.5 g/dL (12.0-16.0); Lymphocytes Absolute Auto 900 /uL (1100-4500); Lymphocytes Percent Auto 19.2 % (25-40); Mean Corpuscular HGB Conc 33.2 % (30-36); Mean Corpuscular Hemoglobin 29.9 PG (26-34); Monocytes Absolute Auto 600 /uL (0-900); Neutrophils Absolute Auto 3100 /uL (1500-7000); Platelet Count 282 X10^3/uL (150-400); Red Blood Cell Count 4.18 X10^6/uL (4.0-5.2); Red Cell Distribution Width 12.8 % (11.6-14.8); White Blood Cell Count 4.8 X10^3/uL (4.5-11.0)
[2022-11-27 00:37] LABS: INR 0.9 (0.9-1.3)
[2022-11-27] MEDS: MORPHINE 4 MG/ML INJ IV (00:38)
[2022-11-27] MEDS: ASPIRIN 81 MG CHEW TAB 324 MG PO (00:38)
[2022-11-27 00:40] LABS: PTT Partial Thromboplastin Tim 33 SECONDS (26-36)
[2022-11-27 00:41] LABS: Alanine Aminotransferase 24 IU/L (<35); Albumin Globulin Ratio 1.3 (1.0-2.8); Alkaline Phosphatase 65 U/L (38-126); Aspartate Aminotransferase 32 IU/L (14-36); BUN Creatinine Ratio 16.2 (6-22); Bilirubin Total 0.4 mg/dL (0.2-1.3); Blood Urea Nitrogen 16 mg/dL (7-17); COVID19 -Nasal RAPID Negative (Negative); Calcium 8.9 mg/dL (8.4-10.2); Carbon Dioxide 32 mmol/L (22-32); Chloride 99 mmol/L (98-107); Creatine Kinase 110 U/L (30-135); Estimated Glomerular Filt Rate > 60 mL/min (>60); Globulin 3.1 g/dL (1.7-4.1); Glucose 147 mg/dL (80-110); HEMOLYSIS < 15 (0-50); Lipase 160 U/L (23-300); Potassium 3.6 mmol/L (3.4-5.1); Sodium 136 mmol/L (137-145); Total Protein 7.1 g/dL (6.3-8.2)
[2022-11-27 00:47] LABS: D Dimer 2016 ng/ml (<500)
[2022-11-27 00:53] LABS: Erythrocyte Sedimentation Rate 17 MM/HR (0-20); Troponin I < 0.012 ng/mL (0.01-0.034)
[2022-11-27 00:57] LABS: CKMB % Relative Index 0.6 % (1.5-5.0); Creatine Kinase MB 0.65 ng/mL (<2.37)
[2022-11-27 01:08] LABS: C-Reactive Protein Quant < 0.5 mg/dL (<1.0)
--- NOTE | 2022-11-27 01:25 | DI.CT.S_ITS ---
PROCEDURE: CT ANGIO CHEST PE PROTOCOL INDICATIONS: chest pain, critical dimer, active CA TECHNIQUE: After the administration of intravenous contrast, 2 mm thick sections acquired from the pulmonary apices to the posterior costophrenic angles. 3-dimensional maximum intensity projection (MIP) coronal and sagittal reformats were then acquired through the thorax. For radiation dose reduction, the following was used: automated exposure control, adjustment of mA and/or kV according to patient size. COMPARISON: [facility], CT, CT CHEST ABDOMEN PELVIS WITH CONTRAST, 04/18/2022, 15:13. [facility], CT, CT CHEST ABDOMEN PELVIS WITH CONTRAST, 08/21/2022, 8:56. FINDINGS: Image quality: Excellent. Pulmonary arteries: Pulmonary arteries are normal in size, and demonstrate no intraluminal filling defects to suggest central pulmonary embolism. Lower Neck: No lymphadenopathy by size criteria. Thyroid: Visualized thyroid demonstrates no discrete nodules. Axillae: No lymphadenopathy by size criteria. Multiple surgical clips are demonstrated within the axillae. Chest Wall: Postsurgical changes are redemonstrated consistent with prior bilateral mastectomies. There is a right chest wall subclavian Port-A-Cath with the tip extending to the cavoatrial junction. Bones: Visualized osseous structures demonstrate no suspicious lesions. Lungs and Airways: No acute consolidation. There is mild dependent atelectasis bilaterally. A small region of linear thickening along the right major fissure seen on series 5, image 102 measuring up to 0.5 cm appears similar to the prior studies. The trachea and central airways are patent. Pleura: No pneumothorax or pleural effusions. Heart: Heart size is normal. No pericardial effusion. Thoracic Vessels: The thoracic aorta is normal in size. Mediastinum and [place]: No lymphadenopathy by size criteria. Esophagus: No wall thickening. No hiatal hernia. Abdomen: Visualized upper abdominal solid organs appear normal in the early arterial phase of enhancement. IMPRESSION: 1. No evidence of pulmonary embolism. 2. No acute airspace consolidation. 3. No definite evidence of new or recurrent metastatic disease. Dictated by: Babar Meek M.D. on 11/27/2022 at 2:00 Approved by: Babar Meek M.D. on 11/27/2022 at 2:16
[2022-11-27 03:41] LABS: Creatine Kinase 100 U/L (30-135)
[2022-11-27 03:54] LABS: Troponin I < 0.012 ng/mL (0.01-0.034)
== END 2022-11-27 04:23 | disposition home or self-care (01) ==
PROVIDERS: Emergency Provider Emergency Medicine; PCP Internal Medicine
DX: R07.9 Chest pain, unspecified (principal); Z20.822 Contact with and (suspected) exposure to COVID-19
CPT/HCPCS: 36415; 71045; 71275; 80053; 82550; 82553; 83690; 83735; 84484; 85025; 85379; 85610; 85651; 85730; 86140; 87635; 93005; 96374; 99284; C9803; J2270; Q9967

== ENCOUNTER 2023-06-15 13:44 | Emergency (ER) | payer OTHER, SELFPAY ==
[2023-06-15 14:15] VITALS: BP 134/76; PULSE 76; RESP 18; TEMP 36.2; O2SAT 100; BMI 21.1
[2023-06-15 15:08] VITALS: BP 118/68; PULSE 75; RESP 16; O2SAT 97
[2023-06-15 15:14] LABS: Add Manual Diff / Slide Review NO; Basophils Absolute Auto 0 /uL (0-100); Basophils Percent Auto 0.5 % (0-2); Eosinophils Absolute Auto 200 /uL (0-450); Hematocrit 35.8 % (36-46); Hemoglobin 12.1 g/dL (12.0-16.0); Lymphocytes Absolute Auto 1000 /uL (1100-4500); Lymphocytes Percent Auto 19.1 % (25-40); Mean Corpuscular HGB Conc 33.8 % (30-36); Mean Corpuscular Hemoglobin 29.2 PG (26-34); Mean Corpuscular Volume 86.5 fL (80-100); Monocytes Absolute Auto 700 /uL (0-900); Monocytes Percent Auto 12.8 % (3-14); Neutrophils Absolute Auto 3300 /uL (1500-7000); Neutrophils Percent Auto 63.6 % (50-75); Platelet Count 241 X10^3/uL (150-400); Red Blood Cell Count 4.14 X10^6/uL (4.0-5.2); Red Cell Distribution Width 12.5 % (11.6-14.8); White Blood Cell Count 5.1 X10^3/uL (4.5-11.0)
--- NOTE | 2023-06-15 15:15 | ED_ITS ---
HPI - Nausea/Vomiting/Diarrhea General Chief complaint: Nausea/Vomiting/Diarrhea Stated complaint: sweaty/dizzy/ Time Seen by Provider: 06/15/23 14:58 Source: patient and family Mode of arrival: Wheelchair History of Present Illness HPI Narrative: 62-year-old female who is here for evaluation of a fairly sudden onset of feeling dizzy which she describes as not so much vertigo/room spinning sensation but more of a unsteadiness. She was feeling very sweaty at the time as well. No chest pain no shortness of breath no lightheadedness. She did have some ringing in her ears a couple days ago but nothing currently currently she states that she feels much better but not completely resolved. No fevers. She did have an episode of vertigo about 4 years ago. Related Data Home Medications Medication Instructions Recorded Confirmed amlodipine 5 mg tablet 5 mg PO DAILY 06/25/18 06/28/18 atorvastatin 10 mg tablet 10 mg PO DAILY 06/25/18 06/28/18 lisinopril 40 mg tablet 40 mg PO DAILY 06/25/18 06/28/18 Previous Rx's Medication Instructions Recorded hydrocodone 5 mg-acetaminophen 325 1 tab PO Q6H PRN pain #10 tabs 20/21 mg tablet ondansetron 4 mg disintegrating 4 mg PO Q8H PRN nausea and 02/24/21 tablet vomiting #10 tabs hydrocodone 5 mg-acetaminophen 325 1 tab PO Q4-6H PRN pain #10 tabs 03/26/22 mg tablet ondansetron 4 mg disintegrating 4 mg PO TID-QID PRN nausea and 03/26/22 tablet vomiting #10 tabs Allergies Allergy/AdvReac Type Severity Reaction Status Date / Time hydrochlorothiazide Allergy Rash Verified 06/15/23 14:15 Sulfa (Sulfonamide Allergy Rash Verified 06/15/23 14:15 Antibiotics) Review of Systems Review of Systems ROS Unobtainable: All systems reviewed & are unremarkable except as noted in HPI and below Patient History Medical History Breast cancer Hx of ectopic Ovarian cyst Right flank pain Pelvic pain Fibrocystic breast Eczema Hyperlipidemia HTN (hypertension) Surgical History History of breast surgery History of delivery Social History household members: spouse Smoking Status: Never smoker alcohol intake: current Smoking Status: Never smoker alcohol intake frequency: 0-2 drinks per day Substance Use Type: does not use Exam Initial Vital Signs Initial Vital Signs: Vital Signs Temperature 97.1 F L 06/15/23 14:15 Pulse Rate 76 06/15/23 14:15 Respiratory Rate 18 06/15/23 14:15 Blood Pressure 134/76 06/15/23 14:15 Pulse Oximetry 100 06/15/23 14:15 Oxygen Delivery Method Room Air 06/15/23 14:15 Const General: cooperative, comfortable and No ill appearing HENMT Head: normal to inspection and normocephalic Resp Effort & Inspection: normal respiratory effort Auscultation: clear to auscultation bilaterally Cardio Rate: regular rate Rhythm: regular rhythm GI Inspection: normal to inspection Skin General: no rashes or lesions noted Neuro General: patient alert, patient awake and moves all extremities Extrem General: normal to inspection and capillary refill normal Scores GCS [place] coma scale eye opening: Spontaneous [place] coma scale verbal response: Orientated [place] coma scale motor response: Obey commands [place] coma scale total score: 15 Course Orders Ordered: ED Orders 06/15/23 14:24 EKG-12 Lead Stat 06/15/23 14:53 Complete Blood Count AUTO DIFF Stat 06/15/23 14:57 Comprehensive Metabolic Panel Stat Lipase Stat Prothrombin Time INR Stat Troponin & CK Cardiac Panel Stat 06/15/23 15:05 COVID19 -Nasal RAPID Stat 06/15/23 15:53 Urine Microscopic Stat Ondansetron HCl (Ondansetron 4 Mg Odt) 4 mg PO NOW PRN PRN Reason: Nausea And Vomiting Ondansetron HCl (Ondansetron 4 Mg/2 Ml Inj) 4 mg IV NOW PRN PRN Reason: Nausea And Vomiting Vital Signs Vital signs: Vital Signs - 8 hr 06/15/23 14:15 06/15/23 15:08 06/15/23 15:30 Temperature 97.1 F L Pulse Rate 76 75 78 Respiratory Rate 18 16 18 Blood Pressure 134/76 118/68 119/74 Pulse Oximetry 100 97 100 Oxygen Delivery Method Room Air Room Air Room Air MDM - Nausea/Vomiting/Diarrhea Lab Data Attestation: I reviewed the patient's lab results. 06/15/23 14:53 06/15/23 14:57 Labs: Lab Results 06/15/23 06/15/23 06/15/23 Range/Units 14:53 14:57 15:05 WBC 5.1 (4.5-11.0) X10^3/uL RBC 4.14 (4.0-5.2) X10^6/uL Hgb 12.1 (12.0-16.0) g/dL Hct 35.8 L (36-46) % MCV 86.5 (80-100) fL MCH 29.2 (26-34) PG MCHC 33.8 (30-36) % RDW 12.5 (11.6-14.8) % Plt Count 241 (150-400) X10^3/uL Neut % (Auto) 63.6 (50-75) % Lymph % (Auto) 19.1 L (25-40) % [place] % (Auto) 12.8 (3-14) % Eos % (Auto) 4.0 (2-4) % Baso % (Auto) 0.5 (0-2) % Neut # (Auto) 3300 (4958-3322) /uL Lymph # (Auto) 1000 L (8348-9870) /uL [place] # (Auto) 700 (0-900) /uL Eos # (Auto) 200 (0-450) /uL Baso # (Auto) 0 (0-100) /uL PT 12.6 (10.1-12.7) SECONDS INR 1.1 (0.9-1.3) Sodium 136 L (137-145) mmol/L Potassium 3.5 (3.4-5.1) mmol/L Chloride 100 (98-107) mmol/L Carbon Dioxide 28 (22-32) mmol/L BUN 20 H (7-17) mg/dL Creatinine 0.67 (0.52-1.04) mg/dL Estimated GFR > 60 (>60) mL/min BUN/Creatinine Ratio 29.9 H (6-22) Glucose 108 (80-110) mg/dL Calcium 9.7 (8.4-10.2) mg/dL Total Bilirubin 0.7 (0.2-1.3) mg/dL AST 38 H (14-36) IU/L ALT 28 (<35) IU/L Alkaline Phosphatase 59 (38-126) U/L Total Creatine Kinase 294 H (30-135) U/L Troponin I < 0.012 (0.01-0.034) ng/mL Total Protein 7.3 (6.3-8.2) g/dL Albumin 4.1 (3.5-5.0) g/dL Globulin 3.2 (1.7-4.1) g/dL Albumin/Globulin Ratio 1.3 (1.0-2.8) Lipase 245 (23-300) U/L SARS-CoV-2 (PCR) Negative (Negative) Urine Dip Bedside Urine Glucose Negative Bedside Urine Bilirubin - Negative Bedside Urine Ketone - Negative Urine Specific [place] 1.015 Bedside Urine Occult Blood +/- Bedside Urine pH 6.0 Bedside Urine Protein - Negative Bedside Urine Urobilinogen - Negative Bedside Urine Nitrite - Negative Bedside Urine Leukocytes - Negative Esterase ECG Data Attestation: I personally reviewed and interpreted this ECG as follows: Interpretation: Sinus rhythm Ventricular rate is 71 Normal axis Normal QRS Normal QTC Nonspecific ST T wave changes MDM Narrative Medical decision making narrative: During my initial evaluation patient states she was feeling much better than what she was earlier and then during my 2nd evaluation she states she is back to normal. Her EKG is unremarkable. Labs unremarkable. Low suspicion for CVA/TIA. This does not sound like vertigo she is not having a room spinning sensation but just a lightheadedness. She really did not have any other associated symptoms with this. There has potentially a transient arrhythmia but her EKG today is unremarkable. I did discuss this with her. Will discharge patient home with return precautions. She expressed understanding and agreement. Discharge Plan Departure Patient Disposition: Home Clinical Impression: Light-headedness Instructions: DI for Dizziness-Nonvertigo Activity Restrictions/Additional Instructions: Recommend that you continue to take all of your medications as directed. Contact your primary provider for follow-up. Return to the emergency department for new or worsening symptoms. Prescriptions: No Action atorvastatin 10 mg Tablet 10 mg PO DAILY amlodipine 5 mg Tablet 5 mg PO DAILY lisinopril 40 mg Tablet 40 mg PO DAILY hydrocodone-acetaminophen 5-325 mg tablet 1 tab PO Q6H PRN (Reason: pain) Qty: 10 0RF ondansetron 4 mg tablet,disintegrating 4 mg PO Q8H PRN (Reason: nausea and vomiting) Qty: 10 0RF hydrocodone-acetaminophen 5-325 mg tablet 1 tab PO Q4-6H PRN (Reason: pain) Qty: 10 0RF ondansetron 4 mg tablet,disintegrating 4 mg PO TID-QID PRN (Reason: nausea and vomiting) Qty: 10 0RF Referrals: Roseanna Pineda MD [Primary Care Provider] - Stand Alone Forms: Patient Portal/API
[2023-06-15 15:21] LABS: INR 1.1 (0.9-1.3); Prothrombin Time 12.6 SECONDS (10.1-12.7)
[2023-06-15 15:30] VITALS: BP 119/74; PULSE 78; RESP 18; O2SAT 100
[2023-06-15 15:30] LABS: Alanine Aminotransferase 28 IU/L (<35); Albumin 4.1 g/dL (3.5-5.0); Albumin Globulin Ratio 1.3 (1.0-2.8); Alkaline Phosphatase 59 U/L (38-126); Aspartate Aminotransferase 38 IU/L (14-36); BUN Creatinine Ratio 29.9 (6-22); Bilirubin Total 0.7 mg/dL (0.2-1.3); Blood Urea Nitrogen 20 mg/dL (7-17); Calcium 9.7 mg/dL (8.4-10.2); Carbon Dioxide 28 mmol/L (22-32); Chloride 100 mmol/L (98-107); Creatine Kinase 294 U/L (30-135); Estimated Glomerular Filt Rate > 60 mL/min (>60); Globulin 3.2 g/dL (1.7-4.1); Glucose 108 mg/dL (80-110); HEMOLYSIS < 15 (0-50); Lipase 245 U/L (23-300); Potassium 3.5 mmol/L (3.4-5.1); Sodium 136 mmol/L (137-145); Total Protein 7.3 g/dL (6.3-8.2)
--- NOTE | 2023-06-15 15:34 | PC.NURSE ---
Pt reports earlier she had an episode of nausea/lightheadedness while working. Pt states she now feels better and back to her baseline.
[2023-06-15 15:41] LABS: Troponin I < 0.012 ng/mL (0.01-0.034)
[2023-06-15 15:44] LABS: COVID19 -Nasal RAPID Negative (Negative)
[2023-06-15 16:00] VITALS: BP 128/68; PULSE 74; RESP 18; O2SAT 99
[2023-06-15 16:25] LABS: Bacteria Urine Occasional (0-1); Culture Indicated Urine Cult Not Indicated; Hyaline Casts Urine 10-30/LPF; Mucus Urine 1+ (Negative); RBC Urine 0-1/HPF (0-5/HPF); Squamous Epithelial Cell Urine 0-1 /HPF (0-5/HPF); WBC Urine 0-1/HPF (0-5/HPF)
== END 2023-06-15 16:31 | disposition home or self-care (01) ==
PROVIDERS: Emergency Provider Emergency Medicine; Family Provider Internal Medicine; PCP Internal Medicine
DX: R42 Dizziness and giddiness (principal); R10.9 Unspecified abdominal pain; Z20.822 Contact with and (suspected) exposure to COVID-19
CPT/HCPCS: 36415; 80053; 81003; 81015; 82550; 83690; 84484; 85025; 85610; 87635; 93005; 99283; 99284; C9803

== ENCOUNTER 2023-07-03 10:45 | Outpatient (RCR) | payer OTHER, SELFPAY ==
--- NOTE | 2023-06-17 14:19 | OT.OP.EVAL ---
Visit Care Team Role Provider Type Roseanna Pineda MD Family Provider Non-Staff Primary Care Provider Specialty: Internal Medicine Address: [address] [place] [address], [id number] Email: Jocelin Betts MD Attending Provider Non-Staff Referring Provider Specialty: Medical Address: [address] [place] [address], [id number] Email: Occupational Therapy Initial Evaluation OT Outpatient Adult Evaluation Start: 06/17/23 11:29 Freq: Status: Active Protocol: Document 06/17/23 11:29 AMS (Rec: 06/17/23 11:41 [facility] [id number]) General Information - Adult Visit Number EVAL Insurance Information Prime; EVAL CHARGE ONLY; 12 visits auth Visit Start Time 10:45 Visit Stop Time 11:15 Total Visit Minutes 30 Treatment Setting Outpatient Care Note Type Initial Evaluation Identification Confirmed Yes Identification Confirmed By Self; [place] Goals Short Term Goals 1. [place] will present with increased ability to participate in functional and meaningful activites with active incorporation of the R UE d/t the followina. 0-110 degrees active pain -free R sh flexion. 1b. 0-110 degrees active pain -free R sh abduction. [facility] Goals 1. [place] will be modified independent with execution of home exercise program utilizing provided written and visual instructions from therapist. 2. [place] will present with increased ability to participate in meaningful activities in a variety of environments, as evidenced by the followina. [place] will obtain a score of 25.00 or less on QuickDASH UE Outcome Measure. 2b. [place] will obtain a score of 25.00 or less on the QuickDASH UE Outcome Measure Work Module. Assessment/Plan Treatment Assessment America is a 62 year-old right hand dominant female referred to outpatient OT by PCP secondary to diagnoses of neuralgia/neuritis w/ reported occurrences of R 3rd finger stuck in extension and R shoulder pain w/ restricted ROM in the a.m. Medical history is significant for breast cancer; diagnosis received in 2019 w/ ongoing treatment. America's son is available in the area to assist her with medical needs. She indicated 5 out of 10 on the Pain Assessment Grid relative to the R UE; indicated 4 out of 10 on the Hand/Wrist Pain Assessment Grid relative to the R hand. 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 QuickDASH UE Outcome Measure Score = 45.00; QuickDASH UE Outcome Work Module Score = 50.00; QuickDASH UE Outcome Measure Sports/Performing Arts Module Score = 75.00 (reports unable to bowl, play pool or tennis). America reports stiffness of the R hand primarily the 2nd and 3rd digits in the morning and after work. Initially unable to form full fist with the R hand relative tips of 2nd and 3rd digits touching palm of hand. ROM Measurements were as follows: 0-60 degrees AROM at R 3rd DIPJ; 0- 80 degrees AROM at R 3rd PIPJ; 0-57 degrees AROM at R 3rd MPJ. 0-62 degrees AROM at R 2nd DIPJ; 0-100 degrees AROM at R 2nd PIPJ; 0-65 degrees AROM at R 2nd MPJ. Compared to L hand: 0-65 degrees AROM of 2nd L DIPJ; 0-100 degrees AROM of 2nd L PIPJ; 0-75 degrees AROM of 2nd L MPJ. 0- 65 degrees AROM of 3rd L DIPJ; 0-100 degrees AROM of 3rd L PIPJ; 0-80 degrees AROM of 3rd L MPJ. Post- self PROM able to form full fist w/ the R hand (passive hook fist w/ use of TT, passive hook fist w/ contralateral hand, passive full fist w/ contralateral hand). Report of massaging the R hand and stretching the R hand every morning for 5 minutes. 0-104 degrees active R sh abd vs 0-110 degrees active L sh abd. 0-100 degrees active R sh flex vs 0-135 degrees active L sh flex. 0-80 degrees active bilateral ER. Full IR. 0-55 degrees active R sh ext vs 0- 75 degrees active L sh ext. Able to position R hand on lower back and back of neck without increase in pain symptoms. America would likely benefit from outpatient OT to establish home exercise program to support America's success with active participation in meaningful activities in a variety of environments. Length of treatment (weeks) 5 Plan of Care Start Date 06/17/23 Plan of Care End Date 07/22/23 Treatment Frequency Once a Week Therapeutic Contents Active Range of Motion, Adaptive Equipment Education, Functional Activities,Home Exercise Program,Joint Protection,Manual Therapy, Neurodevelopment Treatment, Neuromuscular Re-Education, Self-Care,Stretching/ Flexibility Activities, Therapeutic Activities, Therapeutic Exercises, Modalities Modalities As Needed,As Prescribed Additional Types of Modalities Heat/Ice/Contrast bath/ Paraffin bath/Ultrasound
--- NOTE | 2023-06-24 12:38 | OT.OP.TRT ---
Visit Care Team Role Provider Type Roseanna Pineda MD Family Provider Non-Staff Primary Care Provider Specialty: Internal Medicine Address: [address] [place] [address], [phone] Email: Jocelin Betts MD Attending Provider Non-Staff Referring Provider Specialty: Medical Address: [address] [place] [address], [phone] Email: Occupational Therapy Treatment Note OT Outpatient Treatment Note - Adult Start: 06/17/23 11:29 Freq: Status: Active Protocol: Document 06/24/23 12:19 AMS (Rec: 06/24/23 12:37 AMS [id number]) OT Outpatient Adult Treatment Note Session Time Visit Start Time 10:45 Visit Stop Time 11:25 Total Visit Minutes 40 Visit Information Visit Number 09/[id number] Plan of Care Dates 06/17/23 - 07/22/23 Insurance Information prime; 12 visits authorized Setting Treatment Setting Outpatient Care Visit Type Note Type Treatment Note General Information General Information America is a 62 year-old right hand dominant female referred to outpatient OT by PCP secondary to diagnoses of neuralgia/neuritis w/ reported occurrences of R 3rd finger stuck in extension and R shoulder pain w/ restricted ROM in the a.m. Medical history is significant for breast cancer; diagnosis received in 2019 w/ ongoing treatment. - Subjective Identification Type Name Identification Reconciled With Medical Record Observations America reports being active throughout her day; she does resistive band arm strengthening exercises 5-10 min a day. She does wall push- ups with varying hand positions (narrow/wide stances ). She has a daily UE/hand flexibility exercise routine. Patient/Caregiver Compliance with Home Excellent Exercise Program - Objective Objective Measurements Please see below for progress towards meeting established OT goals: 06/24/23 = America utilizes a TB #2 or TB #3 daily for 5-10 min for UB strengthening ( including wall push-ups ( narrow and wide positioning of hands, resistive ER, lat pulldown, diagonals, bilateral sh hor abd); she also has a daily UE/Hand flexibility/ROM exercise routine (ER hands behind head). Short Term Goals 1. [place] will present with increased ability to participate in functional and meaningful activites with active incorporation of the R UE d/t the followina. 0-110 degrees active pain -free R sh flexion. 1b. 0-110 degrees active pain -free R sh abduction. Retirement Goals 1. [place] will be modified independent with execution of home exercise program utilizing provided written and visual instructions from therapist. 2. [place] will present with increased ability to participate in meaningful activities in a variety of environments, as evidenced by the followina. [place] will obtain a score of 25.00 or less on QuickDASH UE Outcome Measure. 2b. [place] will obtain a score of 25.00 or less on the QuickDASH UE Outcome Measure Work Module. - Exercises 5 Descriptor B UE elbow ext strengthening. Chair dips w/ bilateral arm rests w/ knees in flexion. 1 x 15. 4 Descriptor B UE strengthening. TB #2. Demonstrated HEP completed daily for 5 to 10 min: Lat pulldown. ER. Diagonals. Hor sh abd. Sh flex. Elbow ext . 3 Descriptor UE ROM. ER hands positioned behind head. B sh flex. B diagonals. B sh hor abd/ant chest stretch . 2 Descriptor Wall UE ROM/UE strengthening. Wall push-ups narrow stance. 1 x 10. Wall push-ups wide stance. 2 x 10. ROM - sh flex, sh abd, backwards sh circles. 1 Descriptor Arm pulleys x 6 minutes seated . - Assessment Assessment of Improvement America is very active; she completes daily stretches for her hands/UEs to support flexibility/ROM/and posture. She also completes daily UE resistance exercises for 5 to 10 minutes utilizing a TB #2 or TB #3 resistance band ( strengthening UEs in all directions). Therapist did suggest 'Y' stretch supine and /or with use of cane given some tightness noted moving the R UE in this diagonal; therapist also suggested chair dips utilizing chair with bilateral arm rests as an alternative to wall push-ups. [place] does a wonderful job of attending to stiffness in her R hand/fingers and addressing the stiffness via various passive and active range of motion exercises to support functional abilities of the R hand (via object manipulation/grasping and releasing of items). America also does a wonderful job of stretching and strengthening her R UE in all directions and being aware of her posture. Thus, she will likely not need much additional support with a R UE home exercise program. - Plan Therapy Recommendations Advance per Rehabilitation Protocol
--- NOTE | 2023-07-03 11:51 | OT.OP.DC ---
Visit Care Team Role Provider Type Roseanna Pineda MD Family Provider Non-Staff Primary Care Provider Address: [address] [place] [address], [phone] Email: Jocelin Betts MD Attending Provider Non-Staff Referring Provider Address: [address] [place] [address], [phone] Email: OT Outpatient OT Outpatient Adult Evaluation Start: 06/17/23 11:29 Freq: Status: Active Protocol: Document 06/17/23 11:29 AMS (Rec: 06/17/23 11:41 AMS [id number]) General Information - Adult Visit Information Visit Number EVAL Insurance Information Prime; EVAL CHARGE ONLY; 12 visits auth Session Time Visit Start Time 10:45 Visit Stop Time 11:15 Total Visit Minutes 30 Setting Treatment Setting Outpatient Care Visit Type Note Type Initial Evaluation Identification Identification Confirmed Yes Identification Confirmed By Self; [place] Goals Short Term Goals Short Term Goals 1. [place] will present with increased ability to participate in functional and meaningful activites with active incorporation of the R UE d/t the followina. 0-110 degrees active pain -free R sh flexion. 1b. 0-110 degrees active pain -free R sh abduction. [facility] Goals [employer] Judge Goals 1. [place] will be modified independent with execution of home exercise program utilizing provided written and visual instructions from therapist. 2. [place] will present with increased ability to participate in meaningful activities in a variety of environments, as evidenced by the followina. [place] will obtain a score of 25.00 or less on QuickDASH UE Outcome Measure. 2b. [place] will obtain a score of 25.00 or less on the QuickDASH UE Outcome Measure Work Module. Assessment/Plan Assessment Treatment Assessment America is a 62 year-old right hand dominant female referred to outpatient OT by PCP secondary to diagnoses of neuralgia/neuritis w/ reported occurrences of R 3rd finger stuck in extension and R shoulder pain w/ restricted ROM in the a.m. Medical history is significant for breast cancer; diagnosis received in 2019 w/ ongoing treatment. America's son is available in the area to assist her with medical needs. She indicated 5 out of 10 on the Pain Assessment Grid relative to the R UE; indicated 4 out of 10 on the Hand/Wrist Pain Assessment Grid relative to the R hand. 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 QuickDASH UE Outcome Measure Score = 45.00; QuickDASH UE Outcome Work Module Score = 50.00; QuickDASH UE Outcome Measure Sports/Performing Arts Module Score = 75.00 (reports unable to bowl, play pool or tennis). America reports stiffness of the R hand primarily the 2nd and 3rd digits in the morning and after work. Initially unable to form full fist with the R hand relative tips of 2nd and 3rd digits touching palm of hand. ROM Measurements were as follows: 0-60 degrees AROM at R 3rd DIPJ; 0- 80 degrees AROM at R 3rd PIPJ; 0-57 degrees AROM at R 3rd MPJ. 0-62 degrees AROM at R 2nd DIPJ; 0-100 degrees AROM at R 2nd PIPJ; 0-65 degrees AROM at R 2nd MPJ. Compared to L hand: 0-65 degrees AROM of 2nd L DIPJ; 0-100 degrees AROM of 2nd L PIPJ; 0-75 degrees AROM of 2nd L MPJ. 0- 65 degrees AROM of 3rd L DIPJ; 0-100 degrees AROM of 3rd L PIPJ; 0-80 degrees AROM of 3rd L MPJ. Post- self PROM able to form full fist w/ the R hand (passive hook fist w/ use of TT, passive hook fist w/ contralateral hand, passive full fist w/ contralateral hand). Report of massaging the R hand and stretching the R hand every morning for 5 minutes. 0-104 degrees active R sh abd vs 0-110 degrees active L sh abd. 0-100 degrees active R sh flex vs 0-135 degrees active L sh flex. 0-80 degrees active bilateral ER. Full IR. 0-55 degrees active R sh ext vs 0- 75 degrees active L sh ext. Able to position R hand on lower back and back of neck without increase in pain symptoms. [place] would likely benefit from outpatient OT to establish home exercise program to support America's success with active participation in meaningful activities in a variety of environments. Plan Length of treatment (weeks) 5 Plan of Care Start Date 06/17/23 Plan of Care End Date 07/22/23 Treatment Frequency Once a Week Therapeutic Contents Active Range of Motion, Adaptive Equipment Education, Functional Activities,Home Exercise Program,Joint Protection,Manual Therapy, Neurodevelopment Treatment, Neuromuscular Re-Education, Self-Care,Stretching/ Flexibility Activities, Therapeutic Activities, Therapeutic Exercises, Modalities Modalities As Needed,As Prescribed Additional Types of Modalities Heat/Ice/Contrast bath/ Paraffin bath/Ultrasound Functional Wrist/Hand Scan Hand Side Sensory Assessment Sensory Profile2 OT Outpatient Treatment Note - Adult Start: 06/17/23 11:29 Freq: Status: Active Protocol: Document 07/03/23 11:33 AMS (Rec: 07/03/23 11:50 [facility] [id number]) OT Outpatient Adult Treatment Note Session Time Visit Start Time 10:45 Visit Stop Time 11:15 Total Visit Minutes 30 Visit Information Visit Number 10/19 Plan of Care Dates 06/17/23 - 07/22/23 Insurance Information [employer] prime; 12 visits authorized Setting Treatment Setting Outpatient Care Visit Type Note Type Treatment Note General Information General Information America is a 62 year-old right hand dominant female referred to outpatient OT by PCP secondary to diagnoses of neuralgia/neuritis w/ reported occurrences of R 3rd finger stuck in extension and R shoulder pain w/ restricted ROM in the a.m. Medical history is significant for breast cancer; diagnosis received in 2019 w/ ongoing treatment. - Subjective Identification Type Name Identification Reconciled With Medical Record Observations No new concerns were reported. America starts her day by doing stretches and stays active throughout the day. She does resistive band UE strengthening exercises 5-10 minutes daily; her UE exercise routine also includes wall push-ups w/ varying hand positions. She lifts boxes that weight between 25 to 35 pounds for work. - Objective Objective Measurements Please see below for progress towards meeting established OT goals: 06/24/23 = America utilizes a TB #2 or TB #3 daily for 5-10 min for UB strengthening ( including wall push-ups ( narrow and wide positioning of hands, resistive ER, lat pulldown, diagonals, bilateral sh hor abd); she also has a daily UE/Hand flexibility/ROM exercise routine (ER hands behind head). Short Term Goals 0-110 degrees active pain-free R sh flexion. *MET 07/03/23 GOALS D/C 07/03/23 1. [place] will present with increased ability to participate in functional and meaningful activites with active incorporation of the R UE d/t the followina. 0-110 degrees active pain -free R sh abduction. Court Of Appeals Judge Goals America will be modified independent with execution of home exercise program utilizing provided written and visual instructions from therapist. *MET 07/03/23 GOALS D/C 07/03/23 2. [place] will present with increased ability to participate in meaningful activities in a variety of environments, as evidenced by the followina. [place] will obtain a score of 25.00 or less on QuickDASH UE Outcome Measure. 2b. [place] will obtain a score of 25.00 or less on the QuickDASH UE Outcome Measure Work Module. - Exercises 2 Descriptor UE stretches/Doorway stretches Wall UE ROM - sh flex, sh abd, backwards sh circles. Step thru/trunk rotation. Sh flex, sh abd, diagonal. 1 Descriptor UBE x 10 minutes seated. - Assessment Assessment of Improvement America is very active; she completes daily stretches for her hands/UEs to support flexibility/ROM/and posture. She also completes daily UE resistance exercises for 5 to 10 minutes utilizing a TB #2 or TB #3 resistance band ( strengthening UEs in all directions). America does a wonderful job of attending to stiffness in her R hand/ fingers and addressing the stiffness via various passive and active range of motion exercises to support functional abilities of the R hand (via object manipulation/ grasping and releasing of items). [place] also does a wonderful job of stretching and strengthening her R UE in all directions and being aware of her posture. She has been instructed in additional UE passive range of motion stretches utilizing wall vs doorway vs supine w/ cane w/ L UE assist. Given that America actively stretches and does light UE strengthening, as well as denies any functional limitations and/or difficulties, rec d/c from outpatient OT at this time. - Plan Therapy Recommendations Discharge from Occupational Therapy
== END 2023-07-07 12:12 | disposition home or self-care (01) ==
LOC: OT 10:45
PROVIDERS: Family Provider Internal Medicine; PCP Internal Medicine; Referring Provider Student in an Organized Health Care Education/Training Program; Visit Provider Student in an Organized Health Care Education/Training Program
DX: M79.2 Neuralgia and neuritis, unspecified (principal); M25.541 Pain in joints of right hand; M25.511 Pain in right shoulder; R27.8 Other lack of coordination
CPT/HCPCS: 97110; 97165

== ENCOUNTER 2023-08-15 11:52 | Emergency (ER) | payer OTHER, SELFPAY ==
[2023-08-15 11:57] VITALS: BP 171/74; PULSE 76; RESP 15; TEMP 36.7; O2SAT 100
--- NOTE | 2023-08-15 12:06 | ED.EXTPRO ---
HPI - Extremity Problem <Elie Munroe PA-C - Last Filed: 08/15/23 12:26> General Chief complaint: Extremity Problem,Nontraumatic Stated complaint: rt shoulder pain/post shots Time Seen by Provider: 08/15/23 12:05 Source: patient Mode of arrival: Ambulatory History of Present Illness HPI Narrative: This is a 62-year-old female presents emergency department due to right shoulder pain after a right shoulder injection she received yesterday. She describes what sounds like an intramuscular injection to her right deltoid consisting of ?a steroid and an anti inflammatory. ?She is continued right shoulder discomfort which is causing her to come in. She denies any numbness or distal extremities, states that it hurts to move at her right shoulder but still able to bend her elbow, wrist, and fingers. Denies any chest pain, fevers, nausea, vomiting, or any other systemic symptoms. Related Data Home Medications Medication Instructions Recorded Confirmed amlodipine 5 mg tablet 5 mg PO DAILY 06/25/18 06/28/18 atorvastatin 10 mg tablet 10 mg PO DAILY 06/25/18 06/28/18 lisinopril 40 mg tablet 40 mg PO DAILY 06/25/18 06/28/18 Previous Rx's Medication Instructions Recorded hydrocodone 5 mg-acetaminophen 325 1 tab PO Q6H PRN pain #10 tabs 02/24/21 mg tablet ondansetron 4 mg disintegrating 4 mg PO Q8H PRN nausea and 02/24/21 tablet vomiting #10 tabs hydrocodone 5 mg-acetaminophen 325 1 tab PO Q4-6H PRN pain #10 tabs 03/26/22 mg tablet ondansetron 4 mg disintegrating 4 mg PO TID-QID PRN nausea and 03/26/22 tablet vomiting #10 tabs Allergies Allergy/AdvReac Type Severity Reaction Status Date / Time ciprofloxacin [From Cipro] Allergy Verified 08/15/23 12:01 hydrochlorothiazide Allergy Rash Verified 08/15/23 12:01 Sulfa (Sulfonamide Allergy Rash Verified 08/15/23 12:01 Antibiotics) Review of Systems <Elie Munroe PA-C - Last Filed: 08/15/23 12:26> Review of Systems Narrative: GENERAL: Denies chills, fatigue, malaise, fever, sweats. HEENT: Denies sinus pain, ear pain, sore throat, difficulty swallowing, dizziness. RESPIRATORY: Denies dyspnea, cough, wheezing, hemoptysis, sputum. CARDIOVASCULAR: Denies chest pain, palpitations, orthopnea, edema, GASTROINTESTINAL: Denies nausea, vomiting, abdominal pain, diarrhea, constipation, melena. : Denies dysuria, frequency, incontinence, hematuria, urinary retention. MUSCULOSKELETAL: Reports right shoulder pain. SKIN: Denies rash, skin lesions, or other NEUROLOGIC: Denies weakness, headache, numbness, change in speech, confusion, seizures, incoordination. PSYCHIATRIC: No concerning psychosocial issues. 12 point review of systems is negative except for those stated above Patient History <Elie Mnuroe PA-C - Last Filed: 08/15/23 12:26> Medical History Breast cancer Hx of ectopic Ovarian cyst Right flank pain Pelvic pain Fibrocystic breast Eczema Hyperlipidemia HTN (hypertension) Surgical History History of breast surgery History of delivery Social History household members: spouse Smoking Status: Never smoker alcohol intake: current Smoking Status: Never smoker alcohol intake frequency: holidays/special occasions only Substance Use Type: does not use Exam <Elie Munroe PA-C - Last Filed: 08/15/23 12:26> Narrative Exam Narrative: GENERAL: Well-developed patient, in mild distress. HEAD: Atraumatic. Normocephalic. EYES: Pupils equal round and reactive. Extraocular motions intact. No scleral icterus. No injection or drainage. ENT: Nose without bleeding, purulent drainage. Throat without erythema, tonsillar hypertrophy or exudate. Airway patent. NECK: Trachea midline. Non tender CARDIOVASCULAR: Regular rate and rhythm without murmurs, gallops, or rubs. RESPIRATORY: Clear to auscultation. Breath sounds equal bilaterally. No wheezes, rales, or rhonchi. GASTROINTESTINAL: Abdomen soft, non-tender, nondistended. EXTREMITIES: Tenderness to palpation to the lateral right shoulder. Pain worsens with movement. She was neurovascularly intact throughout with 2+ radial pulses. Good sensation. Maintains full range of motion at the elbow and wrist and fingers. No obvious hematomas or ecchymosis of the right shoulder. BACK: Nontender without deformity or crepitance. No flank tenderness. NEURO: AOx3. SKIN: No rash or erythema of visible areas Initial Vital Signs Initial Vital Signs: Vital Signs Temperature 98.0 F 08/15/23 11:57 Pulse Rate 76 08/15/23 11:57 Respiratory Rate 15 08/15/23 11:57 Blood Pressure 171/74 H 08/15/23 11:57 Pulse Oximetry 100 08/15/23 11:57 Oxygen Delivery Method Room Air 08/15/23 11:57 <Lyndsay Nicholas DO - Last Filed: 08/20/23 10:00> Initial Vital Signs Initial Vital Signs: Vital Signs Temperature 98.0 F 08/15/23 11:57 Pulse Rate 76 08/15/23 11:57 Respiratory Rate 15 08/15/23 11:57 Blood Pressure 171/74 H 08/15/23 11:57 Pulse Oximetry 100 08/15/23 11:57 Oxygen Delivery Method Room Air 08/15/23 11:57 Course <Elie Munroe PA-C - Last Filed: 08/15/23 12:26> Vital Signs Vital signs: Vital Signs - 8 hr 08/15/23 11:57 Temperature 98.0 F Pulse Rate 76 Respiratory Rate 15 Blood Pressure 171/74 H Pulse Oximetry 100 Oxygen Delivery Method Room Air <Lyndsay Nicholas DO - Last Filed: 08/20/23 10:00> Vital Signs Vital signs: Vital Signs - 8 hr 08/15/23 11:57 Temperature 98.0 F Pulse Rate 76 Respiratory Rate 15 Blood Pressure 171/74 H Pulse Oximetry 100 Oxygen Delivery Method Room Air MDM - Extremity (Nontraumatic) <Elie Munroe PA-C - Last Filed: 08/15/23 12:26> MDM Narrative Medical decision making narrative: MDM * differential diagnosis includes but not limited to neurovascular injury, injection site injury, fracture * Prior records reviewed: Patient was seen here 2 months ago due to lightheadedness. History of hypertension * My lab interpretation: None obtained * My imgaing interpretation: None obtained * Clinical Decision Rules/Scores evaluated: None * Independent discussions with: None ED Course: This is a 62-year-old female presents emergency department due to suspected adverse reaction to the shot she received suspected to be some kind of steroid and Toradol injection. This is not sounds like this was an intra-articular injection although patient is somewhat of a poor historian. Suspect this is a intramuscular injections of the right shoulder. There was no hematomas or ecchymosis noted at the injection site. She was neurovascularly intact throughout and very low concern for any kind of nerve or vascular injury. Due to the mechanism very low concern for any kind of fracture. Recommended sling as needed for comfort as well as ibuprofen, Tylenol, and ice. Suspect should improve over the next week or so. Shared Decision Making: Discussed plan with the patient was comfortable with the plan. Social Considerations: None Disposition: Discharged to home Discharge Plan Departure Patient Disposition: Home Clinical Impression: Injection site reaction Activity Restrictions/Additional Instructions: Thank you for coming to the [facility] Emergency Department today. As we discussed I have very low concern for any kind of serious complication from the shot you received yesterday. I highly doubt there is any kind of fracture nerve injury or blood vessel injury in your right shoulder. The pain you are experiencing any right shoulder is somewhat to be expected after receiving a injection to the area. I recommend ice, you may use the sling as needed for comfort, in the recommend ibuprofen and Tylenol for the pain control. [place] if your symptoms continue. You may take 500 mg Tylenol every 6 hours as well as 400 mg ibuprofen every 6 hours to help with the pain. I hope you feel better soon. Please follow up with your primary care provider within a week if your symptoms continue. If you do not have a primary care provider please contact the [facility] Resource line at [phone]. They will ask some questions about your medical history and help you get set up with a provider in the community. Prescriptions: No Action atorvastatin 10 mg Tablet 10 mg PO DAILY amlodipine 5 mg Tablet 5 mg PO DAILY lisinopril 40 mg Tablet 40 mg PO DAILY hydrocodone-acetaminophen 5-325 mg tablet 1 tab PO Q6H PRN (Reason: pain) Qty: 10 0RF ondansetron 4 mg tablet,disintegrating 4 mg PO Q8H PRN (Reason: nausea and vomiting) Qty: 10 0RF hydrocodone-acetaminophen 5-325 mg tablet 1 tab PO Q4-6H PRN (Reason: pain) Qty: 10 0RF ondansetron 4 mg tablet,disintegrating 4 mg PO TID-QID PRN (Reason: nausea and vomiting) Qty: 10 0RF Referrals: Roseanna Pineda MD [Primary Care Provider] - Stand Alone Forms: Patient Portal/API ED Sign-out <Lyndsay Nicholas DO - Last Filed: 08/20/23 10:00> Cosign ED Attending Arelisature Attestation: I was available for consultation.
== END 2023-08-15 12:50 | disposition home or self-care (01) ==
PROVIDERS: Emergency Provider Physician Assistant Medical; Family Provider Internal Medicine; PCP Internal Medicine
DX: M25.511 Pain in right shoulder (principal)
CPT/HCPCS: 99282

== ENCOUNTER 2025-06-09 17:05 | Emergency (ER) | payer OTHER, SELFPAY ==
[2025-06-09] VITALS (7 sets, daily range): BP systolic 133–171; BP diastolic 74–89; PULSE 88–94; RESP 16–20; TEMP 36.8; O2SAT 94–98; BMI 23.8
--- NOTE | 2025-06-09 17:49 | DI.RAD.S_ITS ---
PROCEDURE: XR CHEST 1V INDICATIONS: Pain in right upper back with inspiration TECHNIQUE: One view of the chest was acquired. COMPARISON: [facility], CT, CT CHEST ABDOMEN PELVIS WITH CONTRAST, 01/11/2025, 15:28. [facility], CR, XR CHEST 1V, 11/27/2022, 0:50. FINDINGS: Surgical changes and devices: Right chest wall Port-A-Cath with a possible kink in the proximal tubing. Multiple surgical clips projecting over the chest bilaterally. Lungs and pleura: Bilateral perihilar prominence. Small left pleural effusion. Mediastinum: Mediastinal contours appear normal. Heart size is normal. Bones and chest wall: No suspicious bony lesions. Overlying soft tissues appear unremarkable. IMPRESSION: Prominence of the perihilar regions, may be infectious in etiology. Small left pleural effusion. Right chest wall Port-A-Cath with a possible kink in the proximal tubing. Recommend correlation with function. Dictated by: Eze Lee M.D. on 06/09/2025 at 18:29 Approved by: Eze Lee M.D. on 06/09/2025 at 18:30
[2025-06-09 18:04] LABS: Add Manual Diff / Slide Review NO; Hematocrit 41.0 % (36-46); Hemoglobin 13.7 g/dL (12.0-16.0); Lymphocytes Absolute Auto 1100 /uL (1100-4500); Mean Corpuscular HGB Conc 33.4 % (30-36); Mean Corpuscular Hemoglobin 29.3 PG (26-34); Mean Corpuscular Volume 87.6 fL (80-100); Platelet Count 339 X10^3/uL (150-400)
[2025-06-09 18:16] LABS: Alanine Aminotransferase 21 IU/L (<35); Albumin 4.6 g/dL (3.5-5.0); Albumin Globulin Ratio 1.2 (1.0-2.8); Alkaline Phosphatase 107 U/L (38-126); Blood Urea Nitrogen 14 mg/dL (7-17); Calcium 9.2 mg/dL (8.4-10.2); Carbon Dioxide 29 mmol/L (22-32); Chloride 101 mmol/L (98-107); Estimated Glomerular Filt Rate > 60 mL/min (>60); Globulin 3.7 g/dL (1.7-4.1); Glucose 106 mg/dL (70-99); HEMOLYSIS < 15 (0-50); Potassium 3.6 mmol/L (3.4-5.1); Sodium 139 mmol/L (137-145); Total Protein 8.3 g/dL (6.3-8.2)
[2025-06-09 19:10] LABS: Influenza A - CEPHEID Flu A NEGATIVE (NEGATIVE); Influenza B - CEPHEID Flu B NEGATIVE (NEGATIVE)
[2025-06-09 19:12] LABS: COVID-19 CEPHEID 4-PLEX PCR Negative (Negative)
--- NOTE | 2025-06-09 19:46 | ED.GENADULT ---
HPI - General Adult General Chief complaint: Upper Respiratory Symptoms Stated complaint: Cough/sneeze d/t cold causes back pain Time Seen by Provider: 06/09/25 17:58 Source: patient, RN notes reviewed and old records reviewed Mode of arrival: Ambulatory Limitations: no limitations History of Present Illness HPI narrative: 64-year-old female history of hypertension, dyslipidemia stage III breast cancer has completed treatment and currently under surveillance. Patient presents with complaint of nasal congestion and cough which has been persistent for about 2 weeks. She states every time she coughs it makes her back hurt in her chest hurt. She states she had fevers initially that has not improved. She has had productive sputum with yellow discoloration she denies any hemoptysis. She denies nausea or vomiting. No diarrhea or constipation, no urinary symptoms. No new swelling in extremities. Patient denies any moved out of their abdominal or lower back pain. She states no midline pain but feels like it is more in the muscles. She states she tried [id number] cough and cold medications for several days but did not want to continue them as she states there was not any improvement. She has allergies to Cipro, sulfa and hydrochlorothiazide. She does have a port in place although not actively being use. No tobacco, no regular alcohol, no recreational drugs. She has follow up with Oncology later this month. Related Data Home Medications ?Medication ?Instructions ?Recorded ?Confirmed amlodipine 5 mg tablet 5 mg PO DAILY 06/25/18 06/28/18 atorvastatin 10 mg tablet 10 mg PO DAILY 06/25/18 06/28/18 lisinopril 40 mg tablet 40 mg PO DAILY 06/25/18 06/28/18 Previous Rx's ?Medication ?Instructions ?Recorded hydrocodone 5 mg-acetaminophen 325 1 tab PO Q6H PRN pain #10 tabs 02/24/21 mg tablet ondansetron 4 mg disintegrating 4 mg PO Q8H PRN nausea and 02/24/21 tablet vomiting #10 tabs hydrocodone 5 mg-acetaminophen 325 1 tab PO Q4-6H PRN pain #10 tabs 03/26/22 mg tablet ondansetron 4 mg disintegrating 4 mg PO TID-QID PRN nausea and 03/26/22 tablet vomiting #10 tabs amoxicillin 875 mg-potassium 1 tab PO BID #20 tabs 06/09/25 clavulanate 125 mg tablet codeine sulfate 15 mg tablet 15 mg PO TID PRN cough #10 tabs 06/09/25 Allergies Allergy/AdvReac Type Severity Reaction Status Date / Time ciprofloxacin (From Cipro) Allergy Verified 06/09/25 17:35 hydrochlorothiazide Allergy Rash Verified 06/09/25 17:35 Sulfa (Sulfonamide Allergy Rash Verified 06/09/25 17:35 Antibiotics) Review of Systems Review of Systems ROS Unobtainable: All systems reviewed & are unremarkable except as noted in HPI and below Patient History Medical History Breast cancer Hx of ectopic Ovarian cyst Right flank pain Pelvic pain Fibrocystic breast Eczema Hyperlipidemia HTN (hypertension) Surgical History History of delivery History of breast surgery Social History household members: spouse Smoking Status: Never smoker alcohol intake: current Smoking Status: Never smoker alcohol intake frequency: holidays/special occasions only Exam Narrative Exam Narrative: GEN: well nourished, well appearing., alert and oriented x [default value], patient appears to be in mild distress. HEENT: Atraumatic, pupils are equal round reactive to light, extraocular movements are intact, mild nasal congestion, TMs are clear with no fluid, there is no conjunctival pallor. Throat is clear without any exudates, erythema, tonsillar enlargement or uvular deviation HEART: Regular rate and rhythm without murmur, clicks, rubs. No edema bilateral lower extremities. pulses are equal in upper and lower extremities LUNGS:Lungs clear to auscultation, no wheezes, rales, crackles, chest moves symmetrically, no tachypnea or accessory muscle use. ABD:bowel sounds normal, soft, non-tender, no guarding, rebound, rigidity, no masses noted, no hepatosplenomegaly :No CVA tenderness BACK: No cervical, thoracic or lumbar vertebral point tenderness. Patient has slightly decreased range of motion. MSCL: Non-tender, no muscle atrophy, muscles strength 5/5 upper and lower extremities, full range of motion, normal gait NEURO:CN 2-12 intact, sensation normal, reflexes 2/4 upper and lower extremities. finger nose finger test normal, heel curiel test normal, romberg normal Initial Vital Signs Initial Vital Signs: Vital Signs Temperature 98.2 F 06/09/25 17:35 Pulse Rate 89 06/09/25 17:35 Respiratory Rate 20 06/09/25 17:35 Blood Pressure 171/89 H 06/09/25 17:35 Pulse Oximetry 98 06/09/25 17:35 Oxygen Delivery Method Room Air 06/09/25 17:35 Course Orders Ordered: ED Orders 06/09/25 17:45 Covid-19 + FLU A/B + RSV - PCR Stat 06/09/25 17:49 XR chest 1V Stat 06/09/25 17:50 CBC Auto Diff [Complete Blood Count AUTO DIFF] Stat CMP [Comprehensive Metabolic Panel] Stat Discontinued Medications Amoxicillin/Clavulanate Potassium (Amoxicillin/Clav 875/125 Mg) 1 tab PO NOW ONE Stop: 06/09/25 20:33 Last Admin: 06/09/25 20:36 Dose: 1 tab Documented By: VICKIE Vital Signs Vital signs: Vital Signs - 8 hr 06/09/25 17:35 06/09/25 18:26 06/09/25 18:26 Temperature 98.2 F Pulse Rate 89 94 H Respiratory Rate 20 Blood Pressure 171/89 H 145/86 H Pulse Oximetry 98 94 Oxygen Delivery Method Room Air 06/09/25 18:30 06/09/25 18:30 06/09/25 19:00 Temperature Pulse Rate 92 H 89 Respiratory Rate Blood Pressure 137/80 Pulse Oximetry 98 96 Oxygen Delivery Method 06/09/25 19:00 06/09/25 19:30 06/09/25 19:30 Temperature Pulse Rate 88 Respiratory Rate 16 Blood Pressure 138/78 135/82 Pulse Oximetry 97 Oxygen Delivery Method 06/09/25 20:00 06/09/25 20:00 06/09/25 20:30 Temperature Pulse Rate 88 92 H Respiratory Rate 16 Blood Pressure 133/74 Pulse Oximetry 96 96 Oxygen Delivery Method 06/09/25 20:30 Temperature Pulse Rate Respiratory Rate Blood Pressure 133/75 Pulse Oximetry Oxygen Delivery Method Medical Decision Making Lab Data 06/09/25 17:50 06/09/25 17:50 Labs: Lab Results 06/09/25 06/09/25 Range/Units 17:45 17:50 WBC 8.2 (4.5-11.0) X10^3/uL RBC 4.68 (4.0-5.2) X10^6/uL Hgb 13.7 (12.0-16.0) g/dL Hct 41.0 (36-46) % MCV 87.6 (80-100) fL MCH 29.3 (26-34) PG MCHC 33.4 (30-36) % RDW 12.6 (11.6-14.8) % Plt Count 339 (150-400) X10^3/uL Neut % (Auto) 77.7 H (50-75) % Lymph % (Auto) 13.4 L (25-40) % [place] % (Auto) 5.7 (3-14) % Eos % (Auto) 1.9 L (2-4) % Baso % (Auto) 1.3 (0-2) % Neut # (Auto) 6300 (6727-0526) /uL Lymph # (Auto) 1100 (5804-4540) /uL [place] # (Auto) 500 (0-900) /uL Eos # (Auto) 200 (0-450) /uL Baso # (Auto) 100 (0-100) /uL Sodium 139 (137-145) mmol/L Potassium 3.6 (3.4-5.1) mmol/L Chloride 101 (98-107) mmol/L Carbon Dioxide 29 (22-32) mmol/L BUN 14 (7-17) mg/dL Creatinine 0.85 (0.52-1.04) mg/dL Estimated GFR > 60 (>60) mL/min BUN/Creatinine Ratio 16.5 (6-22) Glucose 106 H (70-99) mg/dL Calcium 9.2 (8.4-10.2) mg/dL Total Bilirubin 0.6 (0.2-1.3) mg/dL AST 33 (14-36) IU/L ALT 21 (<35) IU/L Alkaline Phosphatase 107 (38-126) U/L Total Protein 8.3 H (6.3-8.2) g/dL Albumin 4.6 (3.5-5.0) g/dL Globulin 3.7 (1.7-4.1) g/dL Albumin/Globulin Ratio 1.2 (1.0-2.8) SARS-CoV-2 (PCR) Negative (Negative) Influenza A (RT-PCR) Flu a negative (NEGATIVE) Influenza B (RT-PCR) Flu b negative (NEGATIVE) RSV (PCR) Negative (Negative) MDM Narrative Medical decision making narrative: Checks history shows prominence of perihilar regions maybe infectious in etiology. Small left pleural effusion. Right chest wall Port-A-Cath with a possible can can proximal to me. Recommend correlation with the function. Labs show normal white count, hemoglobin and platelets predominance of neutrophils. Chemistries are overall appropriate BUN and creatinine are normal glucose is 106 total protein elevated 8.3 but normal AST ALT alk-phos and lipase. COVID/influenza/RSV is negative. 64-year-old female with a history of breast cancer has currently completed her treatment is on surveillance on exam lungs are fairly clear but she does have a wet sounding cough in his reports productive sputum with 2 weeks of symptoms had fevers initially. Imaging shows a small left pleural effusion, some perihilar changes could be infectious in etiology, labs, COVID/influenza RSV are negative. Suspect patient may have clinical pneumonia we will treat with oral antibiotic. Patient has follow up with Oncology in the next 2-3 weeks and encouraged her to follow up if she is having any persistent symptoms that are mild. If any worsening symptoms she is to return to the emergency department. Discharge Plan Departure Patient Disposition: Home Clinical Impression: Pneumonia, Pleural effusion Instructions: DI for Pleural Effusion Activity Restrictions/Additional Instructions: Follow up with your oncology team, you do have a small left pleural effusion on your imaging please share this information with them. Take oral antibiotics until completed. You can take codeine every 8 hours as needed for cough. This medication can make you sleepy do not drive, perform hazardous activities or make any major decisions while taking it. This medication will make you constipated please take a stool softener once to twice daily until stools are soft and regular. Prescription sent to [facility] in [place]. Please return for new or worsening symptoms, fevers, worsening chest or back pain, lightheadedness or passing out, coughing up any blood, persistent vomiting, increasing shortness of breath, any new swelling in extremities or other new or concerning changes. Prescriptions: New amoxicillin-pot clavulanate 875-125 mg tablet 1 tab PO BID Qty: 20 0RF codeine sulfate 15 mg tablet 15 mg PO TID PRN (Reason: cough) Qty: 10 0RF No Action atorvastatin 10 mg Tablet 10 mg PO DAILY amlodipine 5 mg Tablet 5 mg PO DAILY lisinopril 40 mg Tablet 40 mg PO DAILY hydrocodone-acetaminophen 5-325 mg tablet 1 tab PO Q6H PRN (Reason: pain) Qty: 10 0RF ondansetron 4 mg tablet,disintegrating 4 mg PO Q8H PRN (Reason: nausea and vomiting) Qty: 10 0RF hydrocodone-acetaminophen 5-325 mg tablet 1 tab PO Q4-6H PRN (Reason: pain) Qty: 10 0RF ondansetron 4 mg tablet,disintegrating 4 mg PO TID-QID PRN (Reason: nausea and vomiting) Qty: 10 0RF Referrals: Roseanna Pineda MD [Primary Care Provider, Internal Medicine] Stand Alone Forms: Patient Portal/API, Work Release Note
[2025-06-09] MEDS: AMOXICILLIN/CLAV 875/125 MG 1 TAB PO (20:36)
== END 2025-06-09 20:52 | disposition home or self-care (01) ==
PROVIDERS: Physician Assistant; Emergency Provider Emergency Medicine; Family Provider Internal Medicine; PCP Internal Medicine
DX: J18.9 Pneumonia, unspecified organism (principal); J90 Pleural effusion, not elsewhere classified
CPT/HCPCS: 71045; 80053; 85025; 87637; 99283; 99284

== ENCOUNTER 2025-06-19 00:55 | Inpatient (IN) | payer OTHER, SELFPAY ==
[2025-06-19] VITALS (73 sets, daily range): BP systolic 73–176; BP diastolic 45–114; PULSE 72–98; RESP 16–34; TEMP 36.4–36.9; O2SAT 89–96; BMI 23.8
--- NOTE | 2025-06-19 01:15 | DI.RAD.S_ITS ---
PROCEDURE: XR CHEST 1V INDICATIONS: Shortness of breath TECHNIQUE: One view of the chest was acquired. COMPARISON: [facility], CR, XR CHEST 1V, 06/09/2025, 17:58. [facility], CR, XR CHEST 1V, 11/27/2022, 0:50. FINDINGS: Surgical changes and devices: Right chest wall Port-A-Cath. Surgical clips project over the chest. Lungs and pleura: Small left pleural effusion with adjacent atelectasis versus consolidation. Mediastinum: Mediastinal contours appear normal. Heart size is normal. Bones and chest wall: No suspicious bony lesions. Overlying soft tissues appear unremarkable. IMPRESSION: Small left pleural effusion appears mildly increased compared to prior. Dictated by: Eze Lee M.D. on 06/19/2025 at 1:36 Approved by: Eze Lee M.D. on 06/19/2025 at 1:37
[2025-06-19 01:46] LABS: Add Manual Diff / Slide Review NO; Hematocrit 41.6 % (36-46); Hemoglobin 14.0 g/dL (12.0-16.0); Lymphocytes Absolute Auto 800 /uL (1100-4500); Mean Corpuscular HGB Conc 33.6 % (30-36); Mean Corpuscular Hemoglobin 29.3 PG (26-34); Mean Corpuscular Volume 87.3 fL (80-100); Platelet Count 379 X10^3/uL (150-400)
[2025-06-19 01:59] LABS: INR 1.0 (0.9-1.3); Prothrombin Time 11.3 SECONDS (9.4-12.5)
[2025-06-19 02:01] LABS: Lactate (Lactic Acid) 0.8 mmol/L (0.7-2.1)
[2025-06-19 02:04] LABS: Alanine Aminotransferase 21 IU/L (<35); Albumin 4.5 g/dL (3.5-5.0); Albumin Globulin Ratio 1.2 (1.0-2.8); Alkaline Phosphatase 102 U/L (38-126); Blood Urea Nitrogen 12 mg/dL (7-17); Calcium 8.9 mg/dL (8.4-10.2); Carbon Dioxide 28 mmol/L (22-32); Chloride 100 mmol/L (98-107); Estimated Glomerular Filt Rate > 60 mL/min (>60); Globulin 3.7 g/dL (1.7-4.1); Glucose 113 mg/dL (70-99); HEMOLYSIS < 15 (0-50); Potassium 3.8 mmol/L (3.4-5.1); Sodium 138 mmol/L (137-145); Total Protein 8.2 g/dL (6.3-8.2)
--- NOTE | 2025-06-19 02:07 | ED_ITS ---
HPI - SOB/Dyspnea General Chief Complaint: Shortness of Breath/Dyspnea Stated Complaint: SOB, Back Pain Time Seen by Provider: 06/19/25 01:06 Source: patient Mode of arrival: Ambulatory Limitations: no limitations History of Present Illness HPI Narrative: 64-year-old female history of hypertension and stage III breast cancer where she is just being monitored at this point. She presents with some shortness of breath that has steadily increased since finishing her antibiotics. She was diagnosed with pleural effusion secondary to most likely pneumonia that was diagnosed approximately 10 days ago here in this ED and started on Augmentin. Her shortness of breath steadily increased since that ER visit to the point of becoming more short of breath and prompting her to come into the ER today. She is being followed by Oncology over at [place]. Related Data Home Medications ?Medication ?Instructions ?Recorded ?Confirmed amlodipine 5 mg tablet 5 mg PO DAILY 06/25/1806/28 atorvastatin 10 mg tablet 10 mg PO DAILY 06/25/1806/08 lisinopril 40 mg tablet 40 mg PO DAILY 06/25/1806/08 Previous Rx's ?Medication ?Instructions ?Recorded hydrocodone 5 mg-acetaminophen 325 1 tab PO Q6H PRN pa in #10 tabs 02/24/21 mg tablet ondansetron 4 mg disintegrating 4 mg PO Q8H PRN nausea and 02/24/21 tablet vomiting #10 tabs hydrocodone 5 mg-acetaminophen 325 1 tab PO Q4-6H PRN pain #10 tabs 03/26/22 mg tablet ondansetron 4 mg disintegrating 4 mg PO TID-QID PRN na usea and 03/26/22 tablet vomiting #10 tabs amoxicillin 875 mg-potassium 1 tab PO BID #20 tabs 11/29 clavulanate 125 mg tablet codeine sulfate 15 mg tablet 15 mg PO TID PRN cough #1 0 tabs 06/09/25 Allergies Allergy/AdvReac Type Severity Reaction Status Date / Time ciprofloxacin (From Cipro) Allergy Verified 06/19/25 01:10 hydrochlorothiazide Allergy Rash Verified 06/19/25 01:10 latex Allergy Verified 06/19/25 01:10 Sulfa (Sulfonamide Allergy Rash Verified 06/19/25 01:10 Antibiotics) Review of Systems Review of Systems ROS Unobtainable: All systems reviewed & are unremarkable except as noted in HPI and below Patient History Medical History Breast cancer Hx of ectopic Ovarian cyst Right flank pain Pelvic pain Fibrocystic breast Eczema Hyperlipidemia HTN (hypertension) Surgical History History of delivery History of breast surgery Social History household members: spouse Smoking Status: Never smoker alcohol intake: current Smoking Status: Never smoker alcohol intake frequency: holidays/special occasions only Exam Narrative Exam Narrative: General: Patient appears to be in no acute distress, acting appropriately Head: normocephalic, atraumatic, HEENT: Pupils equal round reactive, eyes tracking well, neck supple, no JVD Heart: regular rate and rhythm, no murmurs, rubs, or gallops heard Lungs: clear to auscultation, no adventitious sounds Abdomen: soft , nontender, nondistended, positive bowel sounds Neurological: no focal neurological signs, moving all extremities well, alert and oriented x3, Psych: good judgment ,good insight, mood is normal. Initial Vital Signs Initial Vital Signs: Vital Signs Temperature 97.6 F 06/19/25 01:10 Pulse Rate 98 H 06/19/25 01:10 Respiratory Rate 23 06/19/25 01:10 Blood Pressure 176/114 H 06/19/25 01:10 Pulse Oximetry 96 06/19/25 01:10 Oxygen Delivery Method Room Air 06/19/25 01:10 Course Orders Ordered: ED Orders 06/19/25 01:15 XR chest 1V Stat EKG-12 Lead Stat Measure peak expiratory flow STAT RT Consult Eval and Treat STAT 06/19/25 01:30 Complete Blood Count AUTO DIFF Stat Comprehensive Metabolic Panel Stat Lactate (Lactic Acid) Stat NT-proBNP (BNP-Adult 18+) Stat Prothrombin Time INR Stat Troponin I Stat 06/19/25 02:41 CT angio chest PE protocol Stat 06/20/25 06:00 Basic Metabolic Panel DAILY Complete Blood Count AUTO DIFF DAILY Acetaminophen (Acetaminophen 325 Mg Tablet) 650 mg PO Q6H PRN PRN Reason: Fever/Mild Pain (1-3) Hydrocodone Bitart/Acetaminophen (Hydrocodone/Acet 5/325 Tablet) 1 tab PO Q4H PRN PRN Reason: Pain, Moderate (4-6) Enoxaparin Sodium (Enoxaparin 40 Mg/0.4 Ml Syringe) 40 mg SUBCUT DAILY [facility] Ceftriaxone Sodium 1,000 mg/ (Sodium Chloride) 100 mls @ 200 mls/hr IV Q24H [place] Azithromycin 500 mg/ Dextrose 250 mls @ 250 mls/hr IV Q24H [place] Naloxone HCl (Naloxone 0.4 Mg/Ml Vial) 0.2 mg IV Q2MIN PRN PRN Reason: Opiate Reversal Ondansetron HCl (Ondansetron 4 Mg/2 Ml Inj) 4 mg IV Q8HR PRN PRN Reason: Nausea And Vomiting Discontinued Medications Furosemide (Furosemide 40 Mg/4 Ml Vial) 20 mg IV NOW ONE Stop: 06/19/25 02:23 Last Admin: 06/19/25 02:38 Dose: 20 mg Documented By: JULIANE Ceftriaxone Sodium 1,000 mg/ (Sodium Chloride) 100 mls @ 200 mls/hr IV NOW ONE Stop: 06/19/25 04:24 Last Admin: 06/19/25 04:53 Dose: 200 mls/hr Azithromycin 500 mg/ Dextrose 250 mls @ 250 mls/hr IV NOW ONE Stop: 06/19/25 04:26 Morphine Sulfate (Morphine 2 Mg/Ml Inj) 2 mg IV NOW ONE Stop: 06/19/25 04:53 Reevaluation(s) Reevaluation #1: Upon re-evaluation, patient is still short of breath after 20 mg of IV Lasix. Consultations Consultation #1: consultation made with Dr. Logan hospitalist who agreed to admit the patient for failed outpatient treatment of pneumonia. Vital Signs Vital signs: Vital Signs - 8 hr 06/19/25 01:10 06/19/25 02:29 06/19/25 02:30 Temperature 97.6 F Pulse Rate 98 H 93 H 88 Respiratory Rate 23 Blood Pressure 176/114 H Pulse Oximetry 96 96 94 Oxygen Delivery Method Room Air 06/19/25 03:39 06/19/25 03:40 06/19/25 03:40 Temperature Pulse Rate 83 83 Respiratory Rate 24 23 Blood Pressure 120/65 Pulse Oximetry 91 93 Oxygen Delivery Method Room Air 06/19/25 04:00 06/19/25 04:01 06/19/25 04:01 Temperature Pulse Rate 77 78 Respiratory Rate 17 24 Blood Pressure 80/50 L Pulse Oximetry 95 96 Oxygen Delivery Method 06/19/25 04:06 06/19/25 04:06 06/19/25 04:10 Temperature Pulse Rate 72 77 Respiratory Rate 18 20 Blood Pressure 73/48 L Pulse Oximetry 93 95 Oxygen Delivery Method 06/19/25 04:10 06/19/25 04:13 06/19/25 04:13 Temperature Pulse Rate 76 Respiratory Rate 26 H Blood Pressure 76/47 L 91/53 L Pulse Oximetry 96 Oxygen Delivery Method 06/19/25 04:20 06/19/25 04:20 06/19/25 04:30 Temperature Pulse Rate 85 90 Respiratory Rate 23 26 H Blood Pressure 113/68 Pulse Oximetry 94 94 Oxygen Delivery Method 06/19/25 04:30 Temperature Pulse Rate Respiratory Rate Blood Pressure 149/70 H Pulse Oximetry Oxygen Delivery Method MDM - SOB/Dyspnea Lab Data 06/19/25 01:30 06/19/25 01:30 Labs: Lab Results 06/19/25 Range/Units 01:30 WBC 5.6 (4.5-11.0) X10^3/uL RBC 4.76 (4.0-5.2) X10^6/uL Hgb 14.0 (12.0-16.0) g/dL Hct 41.6 (36-46) % MCV 87.3 (80-100) fL MCH 29.3 (26-34) PG MCHC 33.6 (30-36) % RDW 12.6 (11.6-14.8) % Plt Count 379 (150-400) X10^3/uL Neut % (Auto) 72.1 (50-75) % Lymph % (Auto) 15.0 L (25-40) % [place] % (Auto) 7.2 (3-14) % Eos % (Auto) 4.7 H (2-4) % Baso % (Auto) 1.0 (0-2) % Neut # (Auto) 4000 (5450-3342) /uL Lymph # (Auto) 800 L (5024-0108) /uL [place] # (Auto) 400 (0-900) /uL Eos # (Auto) 300 (0-450) /uL Baso # (Auto) 100 (0-100) /uL PT 11.3 (9.4-12.5) SECONDS INR 1.0 (0.9-1.3) Sodium 138 (137-145) mmol/L Potassium 3.8 (3.4-5.1) mmol/L Chloride 100 (98-107) mmol/L Carbon Dioxide 28 (22-32) mmol/L BUN 12 (7-17) mg/dL Creatinine 0.82 (0.52-1.04) mg/dL Estimated GFR > 60 (>60) mL/min BUN/Creatinine Ratio 14.6 (6-22) Glucose 113 H (70-99) mg/dL Lactate 0.8 (0.7-2.1) mmol/L Calcium 8.9 (8.4-10.2) mg/dL Total Bilirubin 0.7 (0.2-1.3) mg/dL AST 37 H (14-36) IU/L ALT 21 (<35) IU/L Alkaline Phosphatase 102 (38-126) U/L Troponin I < 0.012 (0.01-0.034) ng/mL NT-Pro-B Natriuret Pep 20 (<125) pg/mL Total Protein 8.2 (6.3-8.2) g/dL Albumin 4.5 (3.5-5.0) g/dL Globulin 3.7 (1.7-4.1) g/dL Albumin/Globulin Ratio 1.2 (1.0-2.8) Imaging Data CT scan - chest: Radiologist's Impression: No pulmonary embolism or aortic dissection or aneurysm. Osseous metastatic disease throughout the axial and appendicular skeleton. Moderate size left pleural effusion and left lower lobe infiltrate. [facility] Narrative Medical decision making narrative: 64-year-old female with a history of stage III breast carcinoma with metastases presents with more shortness of breath since being diagnosed with pneumonia 10 days ago and finishing outpatient antibiotic treatment. Patient is showing more pleural effusion now and the infiltrate is still existent. Patient will be admitted for failed outpatient treatment of pneumonia. Hospitalist did accept the patient and the patient was started on IV Rocephin and azithromycin. Discharge Plan Departure Patient Disposition: Admitted As Inpatient Clinical Impression: Pneumonia Qualifiers: Pneumonia type: due to unspecified organism Laterality: left Lung location: l ower lobe of lung Qualified Code(s): J18.9 - Pneumonia, unspecified organism Admit Date/Time: 06/19/25 04:34 Admit Provider: Ben Logan
[2025-06-19 02:14] LABS: NT-proBNP (BNP-Adult 18+) 20 pg/mL (<125); Troponin I < 0.012 ng/mL (0.01-0.034)
[2025-06-19] MEDS: FUROSEMIDE 40 MG/4 ML VIAL 20 MG IV (02:38)
--- NOTE | 2025-06-19 02:41 | DI.CT.S_ITS ---
PROCEDURE: CT ANGIO CHEST PE PROTOCOL INDICATIONS: sob TECHNIQUE: After the administration of intravenous contrast, 2 mm thick sections acquired from the pulmonary apices to the posterior costophrenic angles. 3-dimensional maximum intensity projection (MIP) coronal and sagittal reformats were then acquired through the thorax. For radiation dose reduction, the following was used: automated exposure control, adjustment of mA and/or kV according to patient size. COMPARISON: [facility], CT, CT SOFT TISSUE NECK WITH CONTRAST, 05/02/2025, 15:27. [facility], CT, CT CHEST ABDOMEN PELVIS WITH CONTRAST, 01/11/2025, 15:28. [facility], CT, CT ANGIO CHEST PE PROTOCOL, 11/27/2022, 1:33. FINDINGS: Image quality: Diagnostic. Pulmonary arteries: Pulmonary arteries are normal in size, and demonstrate no intraluminal filling defects to suggest central pulmonary embolism. Lower Neck: No enlarged lymph nodes. Thyroid: No thyroid nodules which require sonographic follow up, per consensus guidelines. Coarse bilateral thyroid calcifications are present. Axillae: No enlarged lymph nodes. Chest Wall: Status post bilateral mastectomies. Right port terminates at the cavoatrial junction. Surgical clips are present in the left axilla. Mildly prominent round right axillary nodes measuring up to 7 mm noted on image 39. Bones: Extensive bony metastases are present. The largest lesions are present in the sternum and manubrium with associated soft tissue component extending beyond the cortex. Multiple rib lesions are noted. Large lytic lesions are present in the T4 and T5 vertebral bodies. Suspected pathologic fracture at T4 given the anterior wedge deformity. Extension into the spinal canal not excluded. Large sclerotic lesions are present and T6. Expansile lytic lesion noted in the posterior left 5th rib. Lungs and Pleura: No pneumothorax or pleural effusions. No suspicious pulmonary nodules or masses. New moderate size left pleural effusion extending to the lung apex. Dependent atelectasis. Subpleural reticulation noted in the anterior left upper lobe probably from previous radiation therapy changes. Moderate bronchial wall thickening. Heart: Mild pericardial thickening. No cardiomegaly. Incidental coronary artery calcifications are noted. Thoracic Vessels: The aorta and pulmonary arteries demonstrate normal size. Calcifications are noted in the thoracic arch. Mediastinum and Priscilla: Soft tissue density surrounds the left internal mammary vessels on image 54. 1.3 cm subcarinal node on image 52. 1.3 cm right hilar node on image 52. 1 cm right paratracheal node on image 46. Esophagus: No wall thickening. No hiatal hernia. Upper Abdomen: Partial visualization of gallstones without inflammation. Stable liver cysts. Otherwise, visualized upper abdomen solid organs and bowel loops appear normal. IMPRESSION: No pulmonary embolus. New moderate size left pleural effusion with dependent atelectasis. No pneumothorax. No new pulmonary nodules or masses. New hilar and mediastinal lymphadenopathy concerning for disease progression. Mildly prominent indeterminate but concerning 7 mm right axillary lymph node. Extensive bone metastases with possible T4 pathologic fracture. Extension into the spinal canal not excluded. Recommend outpatient MRI examination with and without contrast of the thoracic spine. Agree with preliminary interpretation by [facility]. Dictated by: Shirlene Guerra M.D. on 06/19/2025 at 8:28 Approved by: Shirlene Guerra M.D. on 06/19/2025 at 8:48
[2025-06-19] MEDS: MORPHINE 4 MG/ML INJ 2 MG IV (05:21)
[2025-06-19] MEDS: AZITHROMYCIN 500 MG in DEXTROSE 5% IN WATER 250 ML 250 MG IV (05:45)
--- NOTE | 2025-06-19 06:11 | P.HP_ITS ---
History of Present Illness History of Present Illness Date Patient Seen: 06/19/25 Time Patient Seen: 06:11 Chief complaint: SOB, Back Pain Narrative: 64-year-old female with a past medical history of breast cancer stage III last chemotherapy 2 years ago per the patient's report, hypertension, and hyperlipidemia presents with shortness of breath and coughing. Per the patient's report, the patient was diagnosed 10 days ago in the ER with pneumonia and was started on Augmentin. The patient states that she did complete her course of Augmentin but still have ongoing shortness of breath. And coughing. The patient however denies any fever, chills, nausea, vomiting, diarrhea or chest pain. The patient follows up with oncology at [place] for her breast cancer. The patient states that her next PET scan is this coming Thursday. In the emergency room, the patient was hemodynamically stable with relatively benign labs. WBC normal as well as lactate. CT angio of the chest shows no PE but signs of possible left lower lobe infiltrate with moderate-sized left pleural effusion. The patient was given IV ceftriaxone and azithromycin and request for admission. Of note the patient is still saturating well on room air. [facility] Medical History Breast cancer Hx of ectopic Ovarian cyst Right flank pain Pelvic pain Fibrocystic breast Eczema Hyperlipidemia HTN (hypertension) Surgical History History of delivery History of breast surgery Social History household members: spouse and family Smoking Status: Never smoker alcohol intake: never Meds Home Medications and Allergies Home Medications ?Medication ?Instructions ?Recorded ?Confirmed ?Type amlodipine 5 mg tablet 5 mg PO DAILY 06/25/1806/28 History atorvastatin 10 mg tablet 10 mg PO DAILY 06/25/1806/08 History lisinopril 40 mg tablet 40 mg PO DAILY 06/25/1806/08 History hydrocodone 5 mg-acetaminophen 325 1 tab PO Q6H PRN pa in #10 tabs 02/24/21 Rx mg tablet ondansetron 4 mg disintegrating 4 mg PO Q8H PRN nausea and 02/24/21 Rx tablet vomiting #10 tabs hydrocodone 5 mg-acetaminophen 325 1 tab PO Q4-6H PRN pain #10 tabs 03/26/22 Rx mg tablet ondansetron 4 mg disintegrating 4 mg PO TID-QID PRN na usea and 03/26/22 Rx tablet vomiting #10 tabs amoxicillin 875 mg-potassium 1 tab PO BID #20 tabs 11/29 Rx clavulanate 125 mg tablet codeine sulfate 15 mg tablet 15 mg PO TID PRN cough #1 0 tabs 06/09/25 Rx Allergies Allergy/AdvReac Type Severity Reaction Status Date / Time ciprofloxacin (From Cipro) Allergy Verified 06/19/25 01:10 hydrochlorothiazide Allergy Rash Verified 06/19/25 01:10 latex Allergy Verified 06/19/25 01:10 Sulfa (Sulfonamide Allergy Rash Verified 06/19/25 01:10 Antibiotics) Review of Systems Review of Systems ROS: Yes All systems reviewed with the patient and are negative except as otherwise documented Exam Vital Signs (past 8 hours): - 06/19/25 01:10 06/19/25 02:29 06/19/25 02:30 Temperature 97.6 F Pulse Rate 98 H 93 H 88 Respiratory Rate 23 Blood Pressure 176/114 H Pulse Oximetry 96 96 94 Oxygen Delivery Method Room Air 06/19/25 03:39 06/19/25 03:40 06/19/25 03:40 Temperature Pulse Rate 83 83 Respiratory Rate 24 23 Blood Pressure 120/65 Pulse Oximetry 91 93 Oxygen Delivery Method Room Air 06/19/25 04:00 06/19/25 04:01 06/19/25 04:01 Temperature Pulse Rate 77 78 Respiratory Rate 17 24 Blood Pressure 80/50 L Pulse Oximetry 95 96 Oxygen Delivery Method 06/19/25 04:06 06/19/25 04:06 06/19/25 04:10 Temperature Pulse Rate 72 77 Respiratory Rate 18 20 Blood Pressure 73/48 L Pulse Oximetry 93 95 Oxygen Delivery Method 06/19/25 04:10 06/19/25 04:13 06/19/25 04:13 Temperature Pulse Rate 76 Respiratory Rate 26 H Blood Pressure 76/47 L 91/53 L Pulse Oximetry 96 Oxygen Delivery Method 06/19/25 04:20 06/19/25 04:20 06/19/25 04:30 Temperature Pulse Rate 85 90 Respiratory Rate 23 26 H Blood Pressure 113/68 Pulse Oximetry 94 94 Oxygen Delivery Method 06/19/25 04:30 06/19/25 04:40 06/19/25 04:40 Temperature Pulse Rate 87 Respiratory Rate 26 H Blood Pressure 149/70 H 144/70 H Pulse Oximetry 95 Oxygen Delivery Method 06/19/25 05:13 Temperature Pulse Rate Respiratory Rate Blood Pressure Pulse Oximetry Oxygen Delivery Method Room Air Oxygen Delivery Method Room Air Narrative Exam Narrative: Physical Exam: GENERAL: The patient is not in any acute distressed. Awake and alert. HEENT: Nonicteric sclerae, PERRLA, EOMI. Oropharynx clear. Moist mucous membranes. Conjunctivae appear well perfused. HEART: Regular rate and rhythm without murmurs. No lower extremities edema. LUNGS: Decreased breath sounhd at left bases otherwise Clear to auscultation bilaterally. No wheezing, crackles or rhonchi ABDOMEN: Soft, positive bowel sounds, nontender. SKIN: No rash, no excessive bruising, petechiae, or purpura. NEUROLOGIC: AxO x 3. Cranial nerves II-XII intact without motor/sensory deficit. Objective Labs 06/19/25 01:30 06/19/25 01:30 Labs: Laboratory Results - last 24 hr 06/19/25 01:30 WBC 5.6 RBC 4.76 Hgb 14.0 Hct 41.6 MCV 87.3 MCH 29.3 MCHC 33.6 RDW 12.6 Plt Count 379 Neut % (Auto) 72.1 Lymph % (Auto) 15.0 L [place] % (Auto) 7.2 Eos % (Auto) 4.7 H Baso % (Auto) 1.0 Neut # (Auto) 4000 Lymph # (Auto) 800 L [place] # (Auto) 400 Eos # (Auto) 300 Baso # (Auto) 100 PT 11.3 INR 1.0 Sodium 138 Potassium 3.8 Chloride 100 Carbon Dioxide 28 BUN 12 Creatinine 0.82 Estimated GFR > 60 BUN/Creatinine Ratio 14.6 Glucose 113 H Lactate 0.8 Calcium 8.9 Total Bilirubin 0.7 AST 37 H ALT 21 Alkaline Phosphatase 102 Troponin I < 0.012 NT-Pro-B Natriuret Pep 20 Total Protein 8.2 Albumin 4.5 Globulin 3.7 Albumin/Globulin Ratio 1.2 Assessment & Plan Assessment & Plan narrative: Community-acquired pneumonia. Admit to medical inpatient. Of note the patient not septic at this time and saturating well on room air. Continue IV ceftriaxone and azithromycin. Of note patient recently completed a course of Augmentin for her pneumonia as outpatient. Moderate left-sided effusion. Of note CT scan of the chest shows possible osseous metastatic disease. Currently effusion related to her underlying malignancy. The patient saturating well on room air patient likely can follow- up with oncology for possible diagnostic thoracentesis. Will monitor for now. The patient also received 1 dose of IV Lasix in the ER though BNP is normal and less likely effusion secondary to heart failure. Breast cancer. Again patient will have a scheduled PET scan on Thursday with oncology per the patient's report as outpatient. Hypertension. Monitor blood pressure and resume home medication accordingly. Hyperlipidemia. Resume home statin. VTE prophylaxis Lovenox. CODE STATUS DNR/DNI. Disposition likely home in 2 days. - As the provider of this telehealth evaluation, requested by the patient's evaluating physician, I attest that I introduced myself to the patient, provided my credentials and determined that telemedicine via a real-time, 2 way interactive audio and video platform is an appropriate and effective means of providing this service. - I reviewed the patient's chart and had a discussion with the member of the patient's treatment team. - The patient and I mutually agreed with continuation of this evaluation via telemedicine. The patient consented for the telemedicine evaluation. - This virtual encounter was taken place from [place] by Dr. Ben Logan. The patient was evaluated at [facility]. The encounter was approximately 35 minutes. The nurse was present during the entire time of the encounter and was able assists with the stethoscope to listen to the patients. Time-Based Coding :: [TOTAL MINUTES] spent with patient and on the chart (including review of chart, obtaining history, exam, reviewing outside data, placing orders, documenting exam and treatment plan, and counseling patient) on [DATE]. Quality VTE Deep Vein Thrombosis/Pulmonary Embolism Present on Admission: No
[2025-06-19] MEDS: SODIUM CHLORIDE 0.9% 500 ML 1000 ML IV (07:00)
--- NOTE | 2025-06-19 07:21 | PM.HP.1 ---
History of Present Illness History of Present Illness Chief complaint: SOB, Back Pain Narrative: From night doctor:64-year-old female with a past medical history of breast cancer stage III last chemotherapy 2 years ago per the patient's report, hypertension, and hyperlipidemia presents with shortness of breath and coughing. Per the patient's report, the patient was diagnosed 10 days ago in the ER with pneumonia and was started on Augmentin. The patient states that she did complete her course of Augmentin but still have ongoing shortness of breath. And coughing. The patient however denies any fever, chills, nausea, vomiting, diarrhea or chest pain. The patient follows up with oncology at [place] for her breast cancer. The patient states that her next PET scan is this coming Thursday. In the emergency room, the patient was hemodynamically stable with relatively benign labs. WBC normal as well as lactate. CT angio of the chest shows no PE but signs of possible left lower lobe infiltrate with moderate-sized left pleural effusion. The patient was given IV ceftriaxone and azithromycin and request for admission. Of note the patient is still saturating well on room air. S: She was feeling a bit better. She was had a cough for the past several days. No child. Imaging does indicate a small pleural effusion and mediastinal lymphadenopathy as well as extensive bone metastases. She was aware of her metastatic cancer status. She was scheduled for a PET scan on Thursday. She was followed by Oncology at [facility], Dr. Mckeon. ROS: O: NAD, alert and oriented, fluent speech, calm. Normocephalic skull, EOMI, anicteric sclera, symmetric pupils. Oropharynx unremarkable, no droop. Neck supple, midline trachea, no adenopathy. Lungs clear, normal rate and effort. Heart regular, no murmur gallop or rub. Abdomen is soft, non distended and non tender. Extremities are free of edema. Skin is free of rash or lesions. Joints are not swollen or deformed. Judgment appears to be normal. IMAGING: CXR: Small left pleural effusion appears mildly increased compared to prior. Chest CTA: No pulmonary embolus. New moderate size left pleural effusion with dependent atelectasis. No pneumothorax. No new pulmonary nodules or masses. New hilar and mediastinal lymphadenopathy concerning for disease progression. Mildly prominent indeterminate but concerning 7 mm right axillary lymph node. Extensive bone metastases with possible T4 pathologic fracture. Extension into the spinal canal not excluded. Recommend outpatient MRI examination with and without contrast of the thoracic spine. Agree with preliminary interpretation by [facility]. A/P: 1. Possible community-acquired pneumonia. 2. Moderate malignant left-sided effusion. 3. Metastatic breast cancer. Again patient will have a scheduled PET scan on Thursday with oncology per the patient's report as outpatient. 4. Hypertension. Hypotensive since arrival, we will hold blood pressure meds. 5. Hyperlipidemia. Resume home statin. PLAN: -continue IV fluids and antibiotics overnight. Anticipate discharge on June 20. VTE prophylaxis Lovenox. CODE STATUS DNR/DNI. [facility] Medical History Breast cancer Hx of ectopic Ovarian cyst Right flank pain Pelvic pain Fibrocystic breast Eczema Hyperlipidemia HTN (hypertension) Surgical History History of delivery History of breast surgery Social History household members: other Smoking Status: Never smoker alcohol intake: never Meds Home Medications and Allergies Home Medications ?Medication ?Instructions ?Recorded ?Confirmed ?Type amlodipine 5 mg tablet 5 mg PO DAILY 06/25/18 06/28/18 History atorvastatin 10 mg tablet 10 mg PO DAILY 06/25/18 06/28/18 History lisinopril 40 mg tablet 40 mg PO DAILY 06/25/18 06/28/18 History hydrocodone 5 mg-acetaminophen 325 1 tab PO Q6H PRN pain #10 tabs 02/24/21 Rx mg tablet ondansetron 4 mg disintegrating 4 mg PO Q8H PRN nausea and 02/24/21 Rx tablet vomiting #10 tabs hydrocodone 5 mg-acetaminophen 325 1 tab PO Q4-6H PRN pain #10 tabs 03/26/22 Rx mg tablet ondansetron 4 mg disintegrating 4 mg PO TID-QID PRN nausea and 03/26/22 Rx tablet vomiting #10 tabs amoxicillin 875 mg-potassium 1 tab PO BID #20 tabs 06/09/25 Rx clavulanate 125 mg tablet codeine sulfate 15 mg tablet 15 mg PO TID PRN cough #10 tabs 06/09/25 Rx Allergies Allergy/AdvReac Type Severity Reaction Status Date / Time ciprofloxacin (From Cipro) Allergy Verified 06/19/25 01:10 hydrochlorothiazide Allergy Rash Verified 06/19/25 01:10 latex Allergy Verified 06/19/25 01:10 Sulfa (Sulfonamide Allergy Rash Verified 06/19/25 01:10 Antibiotics) Review of Systems Review of Systems Narrative: All else reviewed and otherwise unremarkable except as noted in the history and physical. Exam Vital Signs (past 8 hours): - 06/19/25 01:10 06/19/25 02:29 06/19/25 02:30 Temperature 97.6 F Pulse Rate 98 H 93 H 88 Respiratory Rate 23 Blood Pressure 176/114 H Pulse Oximetry 96 96 94 Oxygen Delivery Method Room Air 06/19/25 03:39 06/19/25 03:40 06/19/25 03:40 Temperature Pulse Rate 83 83 Respiratory Rate 24 23 Blood Pressure 120/65 Pulse Oximetry 91 93 Oxygen Delivery Method Room Air 06/19/25 04:00 06/19/25 04:01 06/19/25 04:01 Temperature Pulse Rate 77 78 Respiratory Rate 17 24 Blood Pressure 80/50 L Pulse Oximetry 95 96 Oxygen Delivery Method 06/19/25 04:06 06/19/25 04:06 06/19/25 04:10 Temperature Pulse Rate 72 77 Respiratory Rate 18 20 Blood Pressure 73/48 L Pulse Oximetry 93 95 Oxygen Delivery Method 06/19/25 04:10 06/19/25 04:13 06/19/25 04:13 Temperature Pulse Rate 76 Respiratory Rate 26 H Blood Pressure 76/47 L 91/53 L Pulse Oximetry 96 Oxygen Delivery Method 06/19/25 04:20 06/19/25 04:20 06/19/25 04:30 Temperature Pulse Rate 85 90 Respiratory Rate 23 26 H Blood Pressure 113/68 Pulse Oximetry 94 94 Oxygen Delivery Method 06/19/25 04:30 06/19/25 04:40 06/19/25 04:40 Temperature Pulse Rate 87 Respiratory Rate 26 H Blood Pressure 149/70 H 144/70 H Pulse Oximetry 95 Oxygen Delivery Method 06/19/25 04:57 06/19/25 04:57 06/19/25 05:00 Temperature Pulse Rate 90 89 Respiratory Rate 28 H 27 H Blood Pressure 149/72 H Pulse Oximetry 93 94 Oxygen Delivery Method 06/19/25 05:01 06/19/25 05:01 06/19/25 05:10 Temperature Pulse Rate 93 H 92 H Respiratory Rate 34 H 30 H Blood Pressure 127/80 Pulse Oximetry 91 94 Oxygen Delivery Method 06/19/25 05:10 06/19/25 05:13 06/19/25 05:20 Temperature Pulse Rate 88 Respiratory Rate 26 H Blood Pressure 144/82 H Pulse Oximetry 92 Oxygen Delivery Method Room Air 06/19/25 05:20 06/19/25 05:30 06/19/25 05:30 Temperature Pulse Rate 91 H Respiratory Rate 26 H Blood Pressure 112/66 114/61 Pulse Oximetry 95 Oxygen Delivery Method 06/19/25 05:40 06/19/25 05:40 06/19/25 05:50 Temperature Pulse Rate 85 86 Respiratory Rate 19 20 Blood Pressure 112/62 Pulse Oximetry 93 92 Oxygen Delivery Method 06/19/25 05:50 06/19/25 06:00 06/19/25 06:00 Temperature Pulse Rate 83 Respiratory Rate 20 Blood Pressure 99/54 L 103/58 L Pulse Oximetry 92 Oxygen Delivery Method 06/19/25 06:10 06/19/25 06:10 06/19/25 06:20 Temperature Pulse Rate 80 83 Respiratory Rate 22 22 Blood Pressure 94/55 L Pulse Oximetry 91 91 Oxygen Delivery Method 06/19/25 06:20 06/19/25 06:30 06/19/25 06:40 Temperature Pulse Rate 92 H 82 Respiratory Rate 27 H 24 Blood Pressure 88/51 L Pulse Oximetry 91 93 Oxygen Delivery Method 06/19/25 06:40 06/19/25 06:46 06/19/25 06:46 Temperature Pulse Rate 82 Respiratory Rate 23 Blood Pressure 81/45 L 78/47 L Pulse Oximetry 91 Oxygen Delivery Method 06/19/25 06:47 06/19/25 06:47 06/19/25 06:49 Temperature Pulse Rate 82 Respiratory Rate 28 H Blood Pressure 80/47 L 83/51 L Pulse Oximetry 89 L Oxygen Delivery Method 06/19/25 06:49 06/19/25 06:51 06/19/25 06:51 Temperature Pulse Rate 82 84 Respiratory Rate 25 H 25 H Blood Pressure 87/59 L Pulse Oximetry 93 93 Oxygen Delivery Method Room Air Oxygen Delivery Method Room Air Objective Labs 06/19/25 01:30 06/19/25 01:30 Labs: Laboratory Results - last 24 hr 10/13/25 01:30 WBC 5.6 RBC 4.76 Hgb 14.0 Hct 41.6 MCV 87.3 MCH 29.3 MCHC 33.6 RDW 12.6 Plt Count 379 Neut % (Auto) 72.1 Lymph % (Auto) 15.0 L [place] % (Auto) 7.2 Eos % (Auto) 4.7 H Baso % (Auto) 1.0 Neut # (Auto) 4000 Lymph # (Auto) 800 L [place] # (Auto) 400 Eos # (Auto) 300 Baso # (Auto) 100 PT 11.3 INR 1.0 Sodium 138 Potassium 3.8 Chloride 100 Carbon Dioxide 28 BUN 12 Creatinine 0.82 Estimated GFR > 60 BUN/Creatinine Ratio 14.6 Glucose 113 H Lactate 0.8 Calcium 8.9 Total Bilirubin 0.7 AST 37 H ALT 21 Alkaline Phosphatase 102 Troponin I < 0.012 NT-Pro-B Natriuret Pep 20 Total Protein 8.2 Albumin 4.5 Globulin 3.7 Albumin/Globulin Ratio 1.2 Assessment & Plan Time-Based Coding :: 35 min spent with patient and on the chart (including review of chart, obtaining history, exam, reviewing outside data, placing orders, documenting exam and treatment plan, and counseling patient) on 06/19. Quality VTE Deep Vein Thrombosis/Pulmonary Embolism Present on Admission: No MIPS - Admit I confirm the patient?s Advance Care Plan is present, Code status is documented, Surrogate decision maker is in patient?s record [If Yes, STOP here]: Yes MIPS - Meds 'Current medications' to include all prescriptions, [id number] products, herbals, cannabis/cannabidiol products, and vitamin/mineral/dietary (nutritional) supplements. I have utilized all available resources to obtain, update, or review the patient?s current medications. [If Yes, STOP here]: Yes
[2025-06-19] MEDS: ENOXAPARIN 40 MG/0.4 ML SYRINGE SUBCUT (08:56)
[2025-06-19] MEDS: SODIUM CHLORIDE 0.9% 1,000 ML 100 ML IV ×2 (12:14→21:25)
--- NOTE | 2025-06-19 13:02 | CM.DANOTE ---
DCP Assessment Note: Pt is a 64yo female, resident of [place], is admitted for pneumonia. Pt lives in a house with a roommate. Pt's Primary Care Provider is Dr. Benjamín Cash ([facility]) and insurance is [employer]. Reviewed chart and discussed with multidisciplinary team pt's medical status and initial discharge needs. Per ED Provider, pt failed outpatient pneumonia treatment and will need to be admitted for IV abx. Per EMR, pt has a history of Stage III Breast CA and sees an oncologist in [place]. DCP met w/patient at bedside; introduced self and role. Patient was found in bed, alert and oriented, cooperative with assessment. Pt confirmed living situation and good support in son and his fiance (son is currently out of town but his fiance is available to assist until Thursday, 06/21). Pt expressed preference in discharge home when cleared. Pt has no prior history of home health or SNF Rehab. Contact information: [id number], Shanae Restrepo ph# [phone]. Plan: Anticipating discharge home when medically cleared, daughter in law hoping to transport pt home if still in town. CM team will follow closely for coordination of discharge plans. Marie Mckinnon [employer] Discharge Planning/Care Management CM Discharge Assessment Start: 06/19/25 05:13 Freq: Status: Active Protocol: Document 06/19/25 12:56 MW (Rec: 06/19/25 13:02 MW [id number]) Discharge Planning Assessment Assigned Discharge LINDA Salazar Resource Paraprofessional Provider Dr. Benjamín Cash ([facility]) Insurance DPOA/Assigned David Cooney Designee Name Contact Information [phone] Advance Directives? Yes Advance Directives Yes on File History Provided By Patient,Medical Record Has Patient been No admitted in last 30 days? Prior Living House Arrangements Household Members other Comment Roommate Type of Drives own vehicle transporation used prior to admit Independent with ADL Yes 's Is patient alert and Yes oriented? Caregiver for No Another Discharge Plan Home Referrals Initiated None needed Review Status In Process Please Provide Date 06/19/25 Initial DC Assessment Was Performed Next Review Type Continued Stay Review
--- NOTE | 2025-06-19 13:36 | PC.ADMIT ---
1451 Angel Dang Admission Note: pt arrived from the ED at approximately 1330 into room 224. A&Ox4, temp 97.7, HR 88, resp rate 15 and shallow, unlabored, 93% on RA, BP 120/69. Able to pivot to bed from stretcher without assist. Pain upon inspiration in chest and ribs. Declined to remove clothing at this time for a skin check. Pt oriented to room and call light. Able to make needs known. Pain 6/10. Provider at bedside. Care ongoing. The patient,America Bass,64 y/o, was given written information regarding hospital policies, unit procedures and contact persons. Patient's smoking status: Never smoker. Vital Signs - 8 hr 06/19/25 05:40 06/19/25 05:40 06/19/25 05:50 Pulse Rate 85 86 Respiratory Rate 19 20 Blood Pressure 112/62 Pulse Oximetry 93 92 Oxygen Delivery Method 06/19/25 05:50 06/19/25 06:00 06/19/25 06:00 Pulse Rate 83 Respiratory Rate 20 Blood Pressure 99/54 L 103/58 L Pulse Oximetry 92 Oxygen Delivery Method 06/19/25 06:10 06/19/25 06:10 06/19/25 06:20 Pulse Rate 80 83 Respiratory Rate 22 22 Blood Pressure 94/55 L Pulse Oximetry 91 91 Oxygen Delivery Method 06/19/25 06:20 06/19/25 06:30 06/19/25 06:40 Pulse Rate 92 H 82 Respiratory Rate 27 H 24 Blood Pressure 88/51 L Pulse Oximetry 91 93 Oxygen Delivery Method 06/19/25 06:40 06/19/25 06:46 06/19/25 06:46 Pulse Rate 82 Respiratory Rate 23 Blood Pressure 81/45 L 78/47 L Pulse Oximetry 91 Oxygen Delivery Method 06/19/25 06:47 06/19/25 06:47 06/19/25 06:49 Pulse Rate 82 Respiratory Rate 28 H Blood Pressure 80/47 L 83/51 L Pulse Oximetry 89 L Oxygen Delivery Method 06/19/25 06:49 06/19/25 06:51 06/19/25 06:51 Pulse Rate 82 84 Respiratory Rate 25 H 25 H Blood Pressure 87/59 L Pulse Oximetry 93 93 Oxygen Delivery Method Room Air 06/19/25 07:00 06/19/25 07:00 06/19/25 07:00 Pulse Rate 84 85 Respiratory Rate 24 20 Blood Pressure 86/53 L Pulse Oximetry 92 96 Oxygen Delivery Method Room Air 06/19/25 07:10 06/19/25 07:10 06/19/25 07:20 Pulse Rate 84 83 Respiratory Rate 21 Blood Pressure 93/52 L Pulse Oximetry 93 92 Oxygen Delivery Method 06/19/25 07:20 06/19/25 07:30 06/19/25 07:30 Pulse Rate 82 Respiratory Rate 22 Blood Pressure 90/52 L 110/63 Pulse Oximetry 93 Oxygen Delivery Method 06/19/25 07:40 06/19/25 07:40 06/19/25 07:50 Pulse Rate 82 80 Respiratory Rate 21 21 Blood Pressure 114/62 Pulse Oximetry 91 91 Oxygen Delivery Method 06/19/25 07:50 06/19/25 08:00 06/19/25 08:00 Pulse Rate 79 Respiratory Rate 19 Blood Pressure 100/58 L 103/59 L Pulse Oximetry Oxygen Delivery Method 06/19/25 08:10 06/19/25 08:10 06/19/25 08:20 Pulse Rate 81 Respiratory Rate 19 Blood Pressure 108/59 L 107/58 L Pulse Oximetry Oxygen Delivery Method 06/19/25 08:20 06/19/25 08:30 06/19/25 08:30 Pulse Rate 83 83 Respiratory Rate 20 22 Blood Pressure 101/59 L Pulse Oximetry 91 Oxygen Delivery Method 06/19/25 08:40 06/19/25 08:40 06/19/25 08:50 Pulse Rate 82 83 Respiratory Rate 19 21 Blood Pressure 105/56 L Pulse Oximetry 89 L 89 L Oxygen Delivery Method 06/19/25 08:50 06/19/25 08:57 06/19/25 08:57 Pulse Rate 85 Respiratory Rate 24 Blood Pressure 109/57 L 113/58 L Pulse Oximetry 91 Oxygen Delivery Method 06/19/25 09:00 06/19/25 09:00 06/19/25 09:10 Pulse Rate 85 90 Respiratory Rate 28 H 25 H Blood Pressure 119/59 L Pulse Oximetry 91 92 Oxygen Delivery Method 06/19/25 09:10 06/19/25 09:30 06/19/25 09:31 Pulse Rate 88 Respiratory Rate Blood Pressure 128/68 121/58 L Pulse Oximetry 95 Oxygen Delivery Method 06/19/25 09:31 06/19/25 09:40 06/19/25 09:40 Pulse Rate 89 85 Respiratory Rate 21 21 Blood Pressure 108/52 L Pulse Oximetry 95 93 Oxygen Delivery Method 06/19/25 09:50 06/19/25 09:50 06/19/25 10:00 Pulse Rate 86 Respiratory Rate 22 Blood Pressure 94/54 L 97/50 L Pulse Oximetry 93 Oxygen Delivery Method 06/19/25 10:00 06/19/25 10:10 06/19/25 10:10 Pulse Rate 87 83 Respiratory Rate 22 20 Blood Pressure 97/51 L Pulse Oximetry 94 93 Oxygen Delivery Method 06/19/25 10:20 06/19/25 10:20 06/19/25 10:30 Pulse Rate 86 82 Respiratory Rate 18 21 Blood Pressure 92/51 L Pulse Oximetry 95 92 Oxygen Delivery Method 06/19/25 10:30 06/19/25 10:40 06/19/25 10:40 Pulse Rate 80 Respiratory Rate 19 Blood Pressure 94/52 L 98/51 L Pulse Oximetry 92 Oxygen Delivery Method 06/19/25 10:50 06/19/25 10:50 06/19/25 10:53 Pulse Rate 81 Respiratory Rate 19 Blood Pressure 88/52 L 87/53 L Pulse Oximetry 93 Oxygen Delivery Method 06/19/25 10:53 06/19/25 11:00 06/19/25 11:00 Pulse Rate 83 83 Respiratory Rate 24 22 Blood Pressure 103/58 L Pulse Oximetry 93 93 Oxygen Delivery Method 06/19/25 11:10 06/19/25 11:10 06/19/25 11:20 Pulse Rate 80 82 Respiratory Rate 22 21 Blood Pressure 90/53 L Pulse Oximetry 92 92 Oxygen Delivery Method 06/19/25 11:20 06/19/25 11:30 06/19/25 11:30 Pulse Rate 82 Respiratory Rate 19 Blood Pressure 108/60 104/59 L Pulse Oximetry 94 Oxygen Delivery Method 06/19/25 11:40 06/19/25 11:40 06/19/25 11:50 Pulse Rate 81 Respiratory Rate 19 Blood Pressure 111/58 L 106/59 L Pulse Oximetry 92 Oxygen Delivery Method 06/19/25 11:50 06/19/25 12:00 06/19/25 12:00 Pulse Rate 80 82 Respiratory Rate 18 19 Blood Pressure 105/55 L Pulse Oximetry 92 92 Oxygen Delivery Method 06/19/25 12:10 06/19/25 12:10 06/19/25 12:20 Pulse Rate 84 94 H Respiratory Rate 23 Blood Pressure 104/58 L Pulse Oximetry 93 92 Oxygen Delivery Method 06/19/25 12:20 06/19/25 12:30 06/19/25 12:30 Pulse Rate 85 Respiratory Rate 24 Blood Pressure 111/60 113/62 Pulse Oximetry 93 Oxygen Delivery Method 06/19/25 12:40 06/19/25 12:40 06/19/25 12:50 Pulse Rate 85 85 Respiratory Rate 22 20 Blood Pressure 110/57 L Pulse Oximetry 91 92 Oxygen Delivery Method 06/19/25 12:50 06/19/25 13:00 06/19/25 13:00 Pulse Rate 83 Respiratory Rate 19 Blood Pressure 108/58 L 102/57 L Pulse Oximetry 92 Oxygen Delivery Method 06/19/25 13:10 06/19/25 13:10 06/19/25 13:20 Pulse Rate 84 87 Respiratory Rate 19 19 Blood Pressure 89/50 L Pulse Oximetry 92 92 Oxygen Delivery Method 06/19/25 13:20 Pulse Rate Respiratory Rate Blood Pressure 91/55 L Pulse Oximetry Oxygen Delivery Method
[2025-06-19] MEDS: ATORVASTATIN 20 MG TABLET 10 MG PO (21:23)
[2025-06-20 01:02] VITALS: O2SAT 93
[2025-06-20 05:32] LABS: Add Manual Diff / Slide Review NO; Hematocrit 38.2 % (36-46); Hemoglobin 12.8 g/dL (12.0-16.0); Lymphocytes Absolute Auto 900 /uL (1100-4500); Mean Corpuscular HGB Conc 33.5 % (30-36); Mean Corpuscular Hemoglobin 29.4 PG (26-34); Mean Corpuscular Volume 87.9 fL (80-100); Platelet Count 308 X10^3/uL (150-400)
[2025-06-20 05:35] LABS: Blood Urea Nitrogen 9 mg/dL (7-17); Calcium 8.7 mg/dL (8.4-10.2); Carbon Dioxide 27 mmol/L (22-32); Chloride 106 mmol/L (98-107); Estimated Glomerular Filt Rate > 60 mL/min (>60); Glucose 84 mg/dL (70-99); HEMOLYSIS < 15 (0-50); Potassium 4.1 mmol/L (3.4-5.1); Sodium 135 mmol/L (137-145)
[2025-06-20] MEDS: SODIUM CHLORIDE 0.9% 1,000 ML 100 ML IV (05:59)
[2025-06-20] MEDS: AZITHROMYCIN 500 MG in DEXTROSE 5% IN WATER 250 ML 250 MG IV (06:00)
[2025-06-20 08:00] VITALS: BP 125/70; PULSE 88; RESP 17; TEMP 36.4; O2SAT 93
[2025-06-20] MEDS: ENOXAPARIN 40 MG/0.4 ML SYRINGE SUBCUT (09:44)
--- NOTE | 2025-06-20 10:40 | PM.DS.1 ---
History of Present Illness History of Present Illness Chief complaint: SOB, Back Pain Narrative: From night doctor:64-year-old female with a past medical history of breast cancer stage III last chemotherapy 2 years ago per the patient's report, hypertension, and hyperlipidemia presents with shortness of breath and coughing. Per the patient's report, the patient was diagnosed 10 days ago in the ER with pneumonia and was started on Augmentin. The patient states that she did complete her course of Augmentin but still have ongoing shortness of breath. And coughing. The patient however denies any fever, chills, nausea, vomiting, diarrhea or chest pain. The patient follows up with oncology at [place] for her breast cancer. The patient states that her next PET scan is this coming Thursday. In the emergency room, the patient was hemodynamically stable with relatively benign labs. WBC normal as well as lactate. CT angio of the chest shows no PE but signs of possible left lower lobe infiltrate with moderate-sized left pleural effusion. The patient was given IV ceftriaxone and azithromycin and request for admission. Of note the patient is still saturating well on room air. S: She was feeling a bit better. She was had a cough for the past several days. No child. Imaging does indicate a small pleural effusion and mediastinal lymphadenopathy as well as extensive bone metastases. She was aware of her metastatic cancer status. She was scheduled for a PET scan on Thursday. She was followed by Oncology at [facility], Dr. Mckeon. ROS: O: NAD, alert and oriented, fluent speech, calm. Normocephalic skull, EOMI, anicteric sclera, symmetric pupils. Oropharynx unremarkable, no droop. Neck supple, midline trachea, no adenopathy. Lungs clear, normal rate and effort. Heart regular, no murmur gallop or rub. Abdomen is soft, non distended and non tender. Extremities are free of edema. Skin is free of rash or lesions. Joints are not swollen or deformed. Judgment appears to be normal. IMAGING: CXR: Small left pleural effusion appears mildly increased compared to prior. Chest CTA: No pulmonary embolus. New moderate size left pleural effusion with dependent atelectasis. No pneumothorax. No new pulmonary nodules or masses. New hilar and mediastinal lymphadenopathy concerning for disease progression. Mildly prominent indeterminate but concerning 7 mm right axillary lymph node. Extensive bone metastases with possible T4 pathologic fracture. Extension into the spinal canal not excluded. Recommend outpatient MRI examination with and without contrast of the thoracic spine. Agree with preliminary interpretation by [facility]. A/P: 1. Possible community-acquired pneumonia. Improved. 2. Moderate malignant left-sided effusion. Stable (not hypoxic). 3. Metastatic breast cancer. Delayed PET scan on per oncology to 07/[address]. 4. Hypertension. 5. Hyperlipidemia. Hospital Course: -she was treated with IV fluids and antibiotics overnight. She improved clinically and was felt to be stable for discharge on June 20. She will follow up with Oncology as scheduled. VTE prophylaxis Lovenox. CODE STATUS DNR/DNI. [N], the patient has documentation of a left ventricle ejection fracture less than or equal to 40%, or moderately or severely reduced left ventricle systolic function. [N], the patient has a history of heart transplant or left ventricular assist device (LVAD). [N], the patient was prescribed an RAMONA inhibitor at discharge or is already being taken. The patient was not prescribed an RAMONA-inhibitor because of the following exception: Not indicated. [N], the patient was prescribed Metoprolol succinate, bisoprolol, or carvedilol at discharge. The patient was not prescribed Metoprolol succinate, bisoprolol, or carvedilol at discharge because of the following exception: Not indicated. Discharge Providers Provider Date of admission: 06/19/25 04:34 Discharge Date: 06/20/25 Primary care physician: Roseanna Pineda MD Discharge provider: Rudy Guerra MD Summary Hospital Course Discharge Diagnosis: See above. Hospital Course: See above. Status at Discharge Cognitive/behavioral status at discharge: oriented Functional status at discharge: independent ambulation Overall status at discharge: patient is back to baseline Time Spent with Patient Time spent: Greater than 30 minutes Exam Vital Signs (past 8 hours): - 06/20/25 08:00 Temperature 97.5 F L Pulse Rate 88 Respiratory Rate 17 Blood Pressure 125/70 Pulse Oximetry 93 Oxygen Flow Rate 0 Oxygen Delivery Method Room Air Oxygen Flow Rate 0 Narrative Exam Narrative: NAD, alert and oriented. Fluent speech. Lungs are clear, normal rate and effort. Heart is regular, no murmur gallop or rub. Abdomen is soft, non distended. Extremities are free of edema. Objective Labs 06/20/25 04:49 06/20/25 04:49 Labs: Laboratory Results - last 24 hr 06/20/25 04:49 WBC 5.1 RBC 4.35 Hgb 12.8 Hct 38.2 MCV 87.9 MCH 29.4 MCHC 33.5 RDW 12.4 Plt Count 308 Neut % (Auto) 62.9 Lymph % (Auto) 16.9 L [place] % (Auto) 10.0 Eos % (Auto) 9.0 H Baso % (Auto) 1.2 Neut # (Auto) 3200 Lymph # (Auto) 900 L [place] # (Auto) 500 Eos # (Auto) 500 H Baso # (Auto) 100 Sodium 135 L Potassium 4.1 Chloride 106 Carbon Dioxide 27 BUN 9 Creatinine 0.69 Estimated GFR > 60 BUN/Creatinine Ratio 13.0 Glucose 84 Calcium 8.7 PFSH Medical History Breast cancer Hx of ectopic Ovarian cyst Right flank pain Pelvic pain Fibrocystic breast Eczema Hyperlipidemia HTN (hypertension) Surgical History History of delivery History of breast surgery Social History household members: other Smoking Status: Never smoker alcohol intake: never Discharge Plan Discharge Plan Patient Disposition: Home Provider Discharge Comment: Stable for discharge on oral antibiotics. Discharge orders & Medications Prescriptions: New cefdinir 300 mg capsule 300 mg PO BID Qty: 10 0RF Continued atorvastatin 10 mg Tablet 10 mg PO DAILY amlodipine 5 mg Tablet 5 mg PO DAILY lisinopril 40 mg Tablet 40 mg PO DAILY hydrocodone-acetaminophen 5-325 mg tablet 1 tab PO Q6H PRN (Reason: pain) Qty: 10 0RF ondansetron 4 mg tablet,disintegrating 4 mg PO Q8H PRN (Reason: nausea and vomiting) Qty: 10 0RF hydrocodone-acetaminophen 5-325 mg tablet 1 tab PO Q4-6H PRN (Reason: pain) Qty: 10 0RF ondansetron 4 mg tablet,disintegrating 4 mg PO TID-QID PRN (Reason: nausea and vomiting) Qty: 10 0RF codeine sulfate 15 mg tablet 15 mg PO TID PRN (Reason: cough) Qty: 10 0RF Discontinued amoxicillin-pot clavulanate 875-125 mg tablet 1 tab PO BID Qty: 20 0RF Medication counseling provided by Pharmacist: No Follow up/Referrals: Roseanna Pineda MD [Primary Care Provider, Internal Medicine] Discharge Health Status Multidrug resistant organism: No MDRO Diet/Activity/Treatments Diet: Regular Activity: As tolerated. Visit Report/Discharge Packet Instructions: DI for Pneumonia -- Adult Stand Alone Forms: Patient Portal/API Discharge Data Primary Care Provider: Roseanna Pineda Quality VTE Deep Vein Thrombosis/Pulmonary Embolism Present on Admission: No
--- NOTE | 2025-06-20 12:48 | CM.DPNOTE ---
DCP Continued: Reviewed EMR and team rounds for pt?s medical status. Per hospitalist, pt cleared to discharge home with family. Per RN, pt requesting a work excuse letter due to missed day yesterday. Hospitalist agreed to work excuse letter, [employer] printed for pt and presented at bedside. No other needs identified. Plan: Anticipating dc home with daughter in law to transport on 06/20. CM Team will continue to follow for coordination of discharge plans. GAIL BuenoSW
--- NOTE | 2025-06-20 12:53 | PC.NURSE ---
Pt discharged home at 1252, escorted off floor in wheelchair accompanied by family member and hospital staff. IV removed, discharge teaching completed including new medications, worsening symptoms and follow up appointment. Patient left the room with all belongings.
== END 2025-06-20 12:54 | disposition home or self-care (01) | DRG 194 ==
LOC: ED 01:06 → AC 04:35
PROVIDERS: Admitting Provider Internal Medicine; Emergency Provider Family Medicine; Family Provider Internal Medicine; PCP Internal Medicine; Referring Provider Family Medicine; Visit Provider Internal Medicine
DX: J18.9 Pneumonia, unspecified organism (principal); C77.1 Secondary and unspecified malignant neoplasm of intrathoracic lymph nodes; J91.0 Malignant pleural effusion; C79.51 Secondary malignant neoplasm of bone; I10 Essential (primary) hypertension; E78.5 Hyperlipidemia, unspecified; C50.919 Malignant neoplasm of unspecified site of unspecified female breast; Z66 Do not resuscitate; Z85.3 Personal history of malignant neoplasm of breast
CPT/HCPCS: 36415; 71045; 71275; 80048; 80053; 83605; 83880; 84484; 85025; 85610; 96365; 96367; 96375; 99284; J0696; J1650; J1938; J2272; J7030; J7040; J7050; J7060; Q9967

== ENCOUNTER → 2025-07-27 08:43 | Outpatient (CLI) | payer OTHER, SELFPAY ==
[2025-06-19 10:00] VITALS: BMI 23.8
[2025-07-27 11:25] LABS: Body Fluid Tot Nucleated Cells 966 /uL
[2025-07-27 11:37] LABS: Body Fluid Clotted? NO CLOTS PRESENT
[2025-07-27 11:59] LABS: MESO/MACRO/MONO Body Fluid 100 %
[2025-07-28 03:09] LABS: Labcorp Albumin, Body Fluid 2.9 g/dL (Not Estab.)
[2025-07-28 05:10] LABS: Labcorp Glucose, Body Fluid 123 mg/dL (.); Labcorp LDH, Body Fluid 135 IU/L (.); Labcorp Total Prot, Body Fluid 5.4 g/dL (.)
== END ==
PROVIDERS: Family Provider Internal Medicine; Visit Provider Internal Medicine
DX: C50.919 Malignant neoplasm of unspecified site of unspecified female breast (principal); J90 Pleural effusion, not elsewhere classified; Z17.421 Hormone receptor negative with human epidermal growth factor receptor 2 negative status
CPT/HCPCS: 82040; 82945; 83615; 84157; 89051

== ENCOUNTER 2025-08-12 21:38 | Emergency (ER) | payer OTHER, SELFPAY ==
[2025-06-19 10:00] VITALS: BMI 23.8
[2025-08-12] VITALS (10 sets, daily range): BP systolic 147–180; BP diastolic 70–91; PULSE 81–97; RESP 14–41; TEMP 37.3; O2SAT 95–98; BMI 22.1
--- NOTE | 2025-08-12 21:52 | EKG_ITS ---
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
--- NOTE | 2025-08-12 21:58 | DI.RAD.S_ITS ---
PROCEDURE: XR CHEST 1V INDICATIONS: Chest Pain TECHNIQUE: One view of the chest was acquired. COMPARISON: [facility], CR, XR CHEST 1V, 06/19/2025, 1:22. [facility], CR, XR CHEST 1V, 06/09/2025, 17:58. FINDINGS: Surgical changes and devices: Unchanged right chest port catheter. Surgical clips in the chest wall. Lungs and pleura: Moderate to large left pleural effusion, increased from priors, with associated lower lung zone opacities. The right lung is clear. No pneumothorax. Mediastinum: Mediastinal contours appear normal. Heart size is normal. Bones and chest wall: Previously described T4 and T5 vertebral body lytic lesions and multiple rib lesions (CT angio chest PE 06/19/2025) are not well visualized on radiograph. New left fourth posterior rib fracture deformity. Redemonstration of left fifth posterior rib fracture deformity. IMPRESSION: Moderate to large left pleural effusion, substantially increased from priors, with associated lower lung zone opacification. Underlying airspace cannot be excluded. Previously described T4 and T5 vertebral body lytic lesions and multiple rib lesions (CT angio chest PE 06/19/2025) are not well visualized on radiograph. New left fourth posterior rib fracture deformity. Redemonstration of left fifth posterior rib fracture deformity. Dictated by: Maulik Gavin M.D. on 08/12/2025 at 22:48 Approved by: Maulik Gavin M.D. on 08/12/2025 at 22:54
[2025-08-12] MEDS: MORPHINE 4 MG/ML INJ IV (22:08)
--- NOTE | 2025-08-12 22:09 | ED_ITS ---
HPI - SOB/Dyspnea General Chief Complaint: Chest Pain Stated Complaint: chest px/sob/Lt side body px Time Seen by Provider: 08/12/25 21:45 Source: patient and family Mode of arrival: Wheelchair Limitations: no limitations History of Present Illness HPI Narrative: 64-year-old female with a history of possible stage III breast cancer with metastases with recent inpatient treatment for pneumonia approximately a couple of months ago who presents with more shortness of breath and chest pain that radiates to her back that started earlier this evening. She just saw her oncologist over at [facility] yesterday and was restarted on chemotherapy. She is awaiting a biopsy for more formal diagnosis. Related Data Home Medications ?Medication ?Instructions ?Recorded ?Confirmed calcium 600 mg (as cap PO 07/14/25 07/27/25 carbonate)-vitamin D3 12.5 mcg (500 unit) capsule clobetasol 0.05 % topical cream 1 applic topical BID 1 09/13/24 07/27/25 hydrocortisone 5 mg tablet 5 mg PO DAILY 07/14/2507/09 tramadol 25 mg tablet 25 mg PO Q6H PRN 07/14/25 Previous Rx's ?Medication ?Instructions ?Recorded ondansetron 4 mg disintegrating 4 mg PO TID-QID PRN na usea and 03/26/22 tablet vomiting #10 tabs Allergies Allergy/AdvReac Type Severity Reaction Status Date / Time ciprofloxacin (From Cipro) Allergy Verified 08/12/25 21:54 hydrochlorothiazide Allergy Rash Verified 08/12/25 21:54 latex Allergy Verified 08/12/25 21:54 Sulfa (Sulfonamide Allergy Rash Verified 08/12/25 21:54 Antibiotics) Review of Systems Review of Systems ROS Unobtainable: All systems reviewed & are unremarkable except as noted in HPI and below Patient History Medical History Breast cancer Hx of ectopic Ovarian cyst Right flank pain Pelvic pain Fibrocystic breast Eczema Hyperlipidemia HTN (hypertension) Surgical History History of delivery History of breast surgery Social History household members: other Smoking Status: Never smoker alcohol intake: never Smoking Status: Never smoker alcohol intake frequency: holidays/special occasions only Exam Narrative Exam Narrative: General: Patient appears to be in pain and having some difficulty breathing. Head: normocephalic, atraumatic, HEENT: Pupils equal round reactive, eyes tracking well, neck supple, no JVD Heart: regular rate and rhythm, no murmurs, rubs, or gallops heard Lungs: clear to auscultation, no adventitious sounds Abdomen: soft , nontender, nondistended, positive bowel sounds Neurological: no focal neurological signs, moving all extremities well, alert and oriented x3, Psych: good judgment ,good insight, mood is normal. Initial Vital Signs Initial Vital Signs: Vital Signs Blood Pressure 164/91 H 08/12/25 21:50 Course Orders Ordered: ED Orders 08/12/25 21:46 EKG-12 Lead Stat 08/12/25 21:58 XR chest 1V Stat 08/12/25 22:00 Complete Blood Count AUTO DIFF Stat Comprehensive Metabolic Panel Stat D Dimer Stat Lipase Stat Magnesium Stat NT-proBNP (BNP-Adult 18+) Stat PTT Partial Thromboplastin Job Stat Prothrombin Time INR Stat Troponin & CK Cardiac Panel Stat 08/12/25 22:42 CT angio chest PE protocol Stat 08/12/25 23:47 Trop I [Troponin I] Stat Discontinued Medications Morphine Sulfate (Morphine 4 Mg/Ml Inj) 4 mg IV NOW ONE Stop: 08/12/25 22:05 Last Admin: 08/12/25 22:08 Dose: 4 mg Documented By: TRAY Morphine Sulfate (Morphine 4 Mg/Ml Inj) 4 mg IV NOW ONE Stop: 08/13/25 00:40 Last Admin: 08/13/25 00:42 Dose: 4 mg Documented By: STEPHANY Morphine Sulfate (Morphine 4 Mg/Ml Inj) 4 mg IV NOW ONE Stop: 08/13/25 02:29 Last Admin: 08/13/25 02:33 Dose: 4 mg Documented By: STEPHANY Vital Signs Vital signs: Vital Signs - 8 hr 08/12/25 21:50 08/12/25 21:51 08/12/25 21:55 Temperature 99.2 F Pulse Rate 96 H 97 H Respiratory Rate 22 Blood Pressure 164/91 H 164/91 H Pulse Oximetry 97 96 Oxygen Delivery Method Room Air 08/12/25 22:00 08/12/25 22:05 08/12/25 22:05 Temperature Pulse Rate 92 H 90 Respiratory Rate 22 Blood Pressure 160/88 H Pulse Oximetry 97 96 Oxygen Delivery Method 08/12/25 22:30 08/12/25 23:11 08/12/25 23:12 Temperature Pulse Rate 81 97 H 92 H Respiratory Rate 23 41 H 34 H Blood Pressure Pulse Oximetry 96 95 98 Oxygen Delivery Method Room Air Room Air Room Air 08/12/25 23:12 08/12/25 23:30 08/12/25 23:51 Temperature Pulse Rate 84 Respiratory Rate 14 Blood Pressure 180/79 H 147/70 H Pulse Oximetry 97 Oxygen Delivery Method Room Air 08/12/25 23:51 08/13/25 00:00 08/13/25 00:00 Temperature Pulse Rate 81 81 Respiratory Rate 15 25 H Blood Pressure 143/69 H Pulse Oximetry 96 97 Oxygen Delivery Method Room Air Room Air 08/13/25 00:30 08/13/25 00:30 08/13/25 01:00 Temperature Pulse Rate 87 Respiratory Rate 25 H Blood Pressure 186/86 H 199/86 H Pulse Oximetry 96 Oxygen Delivery Method Room Air 08/13/25 01:00 08/13/25 01:30 08/13/25 01:30 Temperature Pulse Rate 89 82 Respiratory Rate 25 H 22 Blood Pressure 163/80 H Pulse Oximetry 95 97 Oxygen Delivery Method Room Air Room Air 08/13/25 02:00 08/13/25 02:00 Temperature Pulse Rate 81 Respiratory Rate 20 Blood Pressure 160/79 H Pulse Oximetry 95 Oxygen Delivery Method Room Air MDM - SOB/Dyspnea Lab Data 08/12/25 22:00 08/12/25 22:00 Labs: Lab Results 08/12/25 08/12/25 Range/Units 22:00 23:47 WBC 11.3 H (4.5-11.0) X10^3/uL RBC 4.72 (4.0-5.2) X10^6/uL Hgb 13.9 (12.0-16.0) g/dL Hct 41.3 (36-46) % MCV 87.6 (80-100) fL MCH 29.5 (26-34) PG MCHC 33.7 (30-36) % RDW 13.1 (11.6-14.8) % Plt Count 329 (150-400) X10^3/uL Neut % (Auto) 94.4 H (50-75) % Lymph % (Auto) 2.5 L (25-40) % [place] % (Auto) 2.9 L (3-14) % Eos % (Auto) 0.1 L (2-4) % Baso % (Auto) 0.1 (0-2) % Neut # (Auto) 68608 H (0892-0557) /uL Lymph # (Auto) 300 L (7798-5225) /uL [place] # (Auto) 300 (0-900) /uL Eos # (Auto) 0 (0-450) /uL Baso # (Auto) 0 (0-100) /uL PT 9.7 (9.4-12.5) SECONDS INR 0.9 (0.9-1.3) APTT 25 L (25.1-36.5) SECONDS D-Dimer 1955 H (<500) ng/ml Sodium 135 L (137-145) mmol/L Potassium 3.9 (3.4-5.1) mmol/L Chloride 98 (98-107) mmol/L Carbon Dioxide 30 (22-32) mmol/L BUN 18 H (7-17) mg/dL Creatinine 0.86 (0.52-1.04) mg/dL Estimated GFR > 60 (>60) mL/min BUN/Creatinine Ratio 20.9 (6-22) Glucose 130 H (70-99) mg/dL Calcium 8.2 L (8.4-10.2) mg/dL Magnesium 2.7 H (1.6-2.3) mg/dL Total Bilirubin 0.3 (0.2-1.3) mg/dL AST 34 (14-36) IU/L ALT 32 (<35) IU/L Alkaline Phosphatase 147 H (38-126) U/L Total Creatine Kinase 88 (30-135) U/L Troponin I < 0.012 < 0.012 (0.01-0.034) ng/mL NT-Pro-B Natriuret Pep 160 H (<125) pg/mL Total Protein 7.1 (6.3-8.2) g/dL Albumin 4.0 (3.5-5.0) g/dL Globulin 3.1 (1.7-4.1) g/dL Albumin/Globulin Ratio 1.3 (1.0-2.8) Lipase 88 (23-300) U/L Imaging Data Chest x-ray: Radiologist's Impression: Moderate to large left pleural effusion, substantially increased from priors, with associated lower lung zone opacification. Underlying airspace cannot be excluded. Previously described T4 and T5 vertebral body lytic lesions and multiple rib lesions (CT angio chest PE 06/19/2025) are not well visualized on radiograph. New left fourth posterior rib fracture deformity. Redemonstration of left fifth posterior rib fracture deformity. CT scan - chest: Radiologist's Impression: No pulmonary embolus. Similar size of moderate to large left pleural effusion with associated compressive atelectasis when compared to recent prior PET/CT dated 07/05/2025. New small right pleural effusion with mild associated compressive atelectasis. Hypermetabolic left pleural nodules seen on recent PET-CT are not well visualized. Worsening metastatic disease including multiple lytic and sclerotic spine and rib lesions, right axillary and bilateral cervical adenopathy, and lesion within the partially visualized liver. New subacute fracture of the right posterior 4th rib. Similar appearance of severe pathologic compression fracture of T4 when compared to MR throacic spine from 07/17/2025, with osseous retropulsion causing moderate to severe spinal canal stenosis. ECG Data Interpretation: EKG showed a normal sinus rhythm with nonspecific ST and T-wave abnormalities, rate of 95 beats per minute. No changes with previous EKG MDM Narrative Medical decision making narrative: 64-year-old female with possible breast cancer or other carcinoma with obvious metastases previous diagnosed with stage III carcinoma of the breast. Patient recently restarted on chemotherapy regimen. Patient now found with a large left-sided pleural effusion, worsening metastatic disease including multiple lytic and sclerotic spine and rib lesions. New subacute fracture of the right posterior 4th rib as well as a pathologic compression fracture of T4. Patient will be transferred to [facility] for interventional radiology thoracentesis therapeutic and potentially see oncology afterwards. Discharge Plan Departure Patient Disposition: [facility] Clinical Impression: Pleural effusion, left Breast cancer Qualifiers: Breast location: unspecified site of breast Estrogen receptor status: u nspecified Patient sex: female Laterality: unspecified laterality Qualified Code(s): C50.919 - Malignant neoplasm of unspecified site of unspecified female breast Prescriptions: No Action ondansetron 4 mg tablet,disintegrating 4 mg PO TID-QID PRN (Reason: nausea and vomiting) Qty: 10 0RF hydrocortisone 5 mg tablet 5 mg PO DAILY clobetasol 0.05 % cream 1 applic topical BID calcium carbonate-vitamin D3 600 mg-12.5 mcg (500 unit) capsule PO tramadol 25 mg tablet 25 mg PO Q6H PRN Referrals: Benjamín Cash MD [Primary Care Provider, Family Practice]
[2025-08-12 22:20] LABS: Add Manual Diff / Slide Review NO; Hematocrit 41.3 % (36-46); Hemoglobin 13.9 g/dL (12.0-16.0); Lymphocytes Absolute Auto 300 /uL (1100-4500); Mean Corpuscular HGB Conc 33.7 % (30-36); Mean Corpuscular Hemoglobin 29.5 PG (26-34); Mean Corpuscular Volume 87.6 fL (80-100); Platelet Count 329 X10^3/uL (150-400)
[2025-08-12 22:27] LABS: INR 0.9 (0.9-1.3); Prothrombin Time 9.7 SECONDS (9.4-12.5)
[2025-08-12 22:29] LABS: PTT Partial Thromboplastin Tim 25 SECONDS (25.1-36.5)
[2025-08-12 22:31] LABS: Alanine Aminotransferase 32 IU/L (<35); Albumin 4.0 g/dL (3.5-5.0); Albumin Globulin Ratio 1.3 (1.0-2.8); Alkaline Phosphatase 147 U/L (38-126); Blood Urea Nitrogen 18 mg/dL (7-17); Calcium 8.2 mg/dL (8.4-10.2); Carbon Dioxide 30 mmol/L (22-32); Chloride 98 mmol/L (98-107); Creatine Kinase 88 U/L (30-135); Estimated Glomerular Filt Rate > 60 mL/min (>60); Globulin 3.1 g/dL (1.7-4.1); Glucose 130 mg/dL (70-99); HEMOLYSIS < 15 (0-50); Lipase 88 U/L (23-300); Magnesium 2.7 mg/dL (1.6-2.3); Potassium 3.9 mmol/L (3.4-5.1); Sodium 135 mmol/L (137-145); Total Protein 7.1 g/dL (6.3-8.2)
--- NOTE | 2025-08-12 22:42 | DI.CT.S_ITS ---
PROCEDURE: CT ANGIO CHEST PE PROTOCOL INDICATIONS: elevated d dimer, sob TECHNIQUE: After the administration of intravenous contrast, 2 mm thick sections acquired from the pulmonary apices to the posterior costophrenic angles. 3-dimensional maximum intensity projection (MIP) coronal and sagittal reformats were then acquired through the thorax. For radiation dose reduction, the following was used: automated exposure control, adjustment of mA and/or kV according to patient size. COMPARISON: [facility], CT, CT ANGIO CHEST PE PROTOCOL, 06/19/2025, 3:15. FINDINGS: Image quality: Diagnostic. Pulmonary arteries: Pulmonary arteries are normal in size, and demonstrate no intraluminal filling defects to suggest central pulmonary embolism. Lower Neck: Coarsened bilateral lower cervical lymph nodes when compared to prior PET-CT from 07/05/2025, for example , a right supraclavicular node measures 0.9 cm in short axis (4/3), previously 0.6 cm. Thyroid: Stable thyroid nodules. Axillae: Mildly increased size of multiple enlarged right axillary lymph nodes measuring up to 1.1 cm (4/56), previously 0.8 cm in short axis. Chest Wall: Mildly increased size of anterior chest wall lesions, on the left, overlying the sternum measuring 0.9 cm, previously 0.7 cm. Bones: Worsened osseous metastatic disease including multiple lytic and sclerotic lesions within the thoracic spine and ribs. For example, increased size of sclerotic lesion in the T7 vertebral body, an increased size of lytic and sclerotic l lesions in the T12 vertebral body. New subacute fracture deformity of the left posterior 4th rib (5/51), when compared to prior CT dated 06/19/2025. Redemonstration of lytic lesion with pathologic fracture of the left posterior 5th rib, lytic lesion has increased in size. Similar appearance of severe compression fracture of the T4 vertebral body, with bony retropulsion causing moderate to severe bony spinal canal stenosis, when compared to recent MR thoracic spine dated 07/15/2025. Lungs and Pleura: Similar size of moderate to large pleural effusion when compared to recent prior PET-CT dated 07/05/2025, with associated compressive atelectasis. Hypermetabolic pleural nodules seen on PET-CT are not well visualized. New small right pleural effusion with mild associated compressive atelectasis. Heart: Heart size is normal. No pericardial effusion. Thoracic Vessels: No aortic aneurysm. Mediastinum and [place]: Stable appearance of prominent nonenlarged mediastinal lymph nodes compared to recent prior PET-CT. Esophagus: No wall thickening. No hiatal hernia. Upper Abdomen: Increased size of hypodense lesion in the liver segment 8 () measuring 2.1 cm, previously 1.[address] from 06/19/2025. Visualized upper abdomen solid organs and bowel loops otherwiseappear normal. IMPRESSION: No pulmonary embolus. Similar size of moderate to large left pleural effusion with associated compressive atelectasis when compared to recent prior PET/CT dated 07/05/2025. New small right pleural effusion with mild associated compressive atelectasis. Hypermetabolic left pleural nodules seen on recent PET-CT are not well visualized. Worsening metastatic disease including multiple lytic and sclerotic spine and rib lesions, right axillary and bilateral cervical adenopathy, and lesion within the partially visualized liver. New subacute fracture of the right posterior 4th rib. Similar appearance of severe pathologic compression fracture of T4 when compared to MR throacic spine from 07/17/2025, with osseous retropulsion causing moderate to severe spinal canal stenosis. Dictated by: Maulik Gavin M.D. on 08/12/2025 at 23:53 Approved by: Maulik Gavin M.D. on 08/13/2025 at 0:13
[2025-08-12 22:43] LABS: NT-proBNP (BNP-Adult 18+) 160 pg/mL (<125); Troponin I < 0.012 ng/mL (0.01-0.034)
--- NOTE | 2025-08-12 23:08 | PC.NURSE ---
Pt ambulatory to restroom without assistance, states moving slowly because any kind of movement increases pain.
[2025-08-13] VITALS: BP 143/69; PULSE 81; RESP 25; O2SAT 97
[2025-08-13 00:16] LABS: Troponin I < 0.012 ng/mL (0.01-0.034)
[2025-08-13 00:30] VITALS: BP 186/86; PULSE 87; RESP 25; O2SAT 96
[2025-08-13] MEDS: MORPHINE 4 MG/ML INJ IV ×2 (00:42→02:33)
[2025-08-13 01:00] VITALS: BP 199/86; PULSE 89; RESP 25; O2SAT 95
[2025-08-13 01:30] VITALS: BP 163/80; PULSE 82; RESP 22; O2SAT 97
[2025-08-13 02:00] VITALS: BP 160/79; PULSE 81; RESP 20; O2SAT 95
== END 2025-08-13 02:44 | disposition short-term general hospital (02) ==
PROVIDERS: Emergency Provider Family Medicine; Family Provider Internal Medicine
DX: J90 Pleural effusion, not elsewhere classified (principal); C50.919 Malignant neoplasm of unspecified site of unspecified female breast; C79.51 Secondary malignant neoplasm of bone; R07.9 Chest pain, unspecified
CPT/HCPCS: 36415; 71045; 71275; 80053; 82550; 83690; 83735; 83880; 84484; 85025; 85379; 85610; 85730; 93005; 96374; 96376; 99284; J2272; Q9967